=== PATIENT | female | born 1970 | race Caucasian/White ===

== ENCOUNTER → 2020-02-18 08:37 | Outpatient (BNVA) | payer OTHER, SELFPAY | PROVIDERS: PCP Internal Medicine; Visit Provider Physician Assistant | DX: Z76.89 Persons encountering health services in other specified circumstances (principal) ==

== ENCOUNTER 2020-02-24 10:39 | Outpatient (REF) | payer OTHER, SELFPAY ==
--- NOTE | 2020-02-24 12:00 | ECG_ITS ---
Test Reason : PRE DIABETES Blood Pressure : / mmHG Vent. Rate : 067 BPM Atrial Rate : 067 BPM P-R Int : 154 ms QRS Dur : 068 ms QT Int : 430 ms P-R-T Axes : 069 041 045 degrees QTc Int : 454 ms Sinus rhythm with marked sinus arrhythmia and Premature atrial complexes Borderline ECG Premature atrial complexes are new Referred By: Joshua Douglas Electronically Signed By:XAVIER FINNEY MD
[2020-02-24 12:59] LABS: MANUAL DIFF FLAG NO
[2020-02-24 13:11] LABS: Basophils Absolute Auto 0.1 X10*3/uL (0.0-0.2); Basophils Percent Auto 0.4 % (0-2); Eosinophils Absolute Auto 0.1 X10*3/uL (0.0-0.4); Hematocrit 43.9 % (37-47); Hemoglobin 14.1 g/dl (12.0-16.0); Imm Gran Abs Auto 0.04 X10*3/uL (0.00-0.03); Imm Gran Pct Auto 0.4 % (0.0-0.4); Lymphocytes Absolute Auto 3.2 X10*3/uL (1.2-4.9); Lymphocytes Percent Auto 28.8 % (20-40); Mean Corpuscular HGB Conc 32.1 g/dl (31.0-35.0); Mean Corpuscular Hemoglobin 29.5 pg (27.0-33.0); Mean Corpuscular Volume 91.8 fL (80-98); Mean Platelet Volume 12.1 fL (9.4-12.3); Monocytes Absolute Auto 0.8 X10*3/uL (0.1-1.2); Monocytes Percent Auto 7.4 % (2-11); Neutrophils Absolute Auto 6.9 X10*3/uL (2.0-8.3); Platelet Count 270 X10*3/uL (160-400); Red Blood Count 4.78 X10*6/uL (4.20-5.50); Red Cell Distribution Width 12.4 % (11.0-16.0); White Blood Count 11.1 X10*3/uL (4.8-10.8)
[2020-02-24 13:42] LABS: Alanine Aminotransferase 24 U/L (0-31); Albumin Level 4.9 g/dL (3.5-5.0); Alkaline Phosphatase 78 U/L (39-117); Anion Gap 16 (12-20); Aspartate Amino Transferase 25 U/L (5-31); Bilirubin Total 0.7 mg/dL (0.0-1.0); Blood Urea Nitrogen 13 mg/dL (9-16); C Reactive Protein 0.69 mg/dL (< or = 0.50); Calcium 9.3 mg/dL (8.4-10.2); Carbon Dioxide 26 mmol/L (22-29); Chloride 100 mmol/L (96-108); Cholesterol 196 mg/dL; Estimated Glomerular Filt Rate > 60; Glucose Random 83 mg/dL (60-115); HDL Cholesterol 61 mg/dL; LDL Cholesterol Calculated 121 mg/dl; Potassium 3.9 mmol/l (3.3-5.1); Sodium 138 mmol/L (135-145); Triglycerides 73 mg/dL
[2020-02-24 14:06] LABS: Ferritin 60 ng/mL (10-250); TSH reflex Free T4 1.08 mIU/mL (0.32-4.0)
[2020-02-24 14:11] LABS: Estimated Average Glucose 123 mg/dL; Hemoglobin A1C 151.7594 umol/L; Hemoglobin A1c % 5.9 %
[2020-02-24 14:30] LABS: Folate 18.4 ng/mL (> or = 4.0); Vitamin B12 271 pg/mL (200-900)
[2020-02-25 15:32] LABS: H Pylori Breath Test NOT DETECTED (NOT DETECTED)
[2020-02-25 20:37] LABS: Calcium (PTHI) 9.8 mg/dL (8.6-10.4); PTHI 98 pg/mL (14-64)
[2020-02-27 06:01] LABS: Zinc 83 mcg/dL (60-130)
[2020-02-28 11:32] LABS: Vitamin B1 9 nmol/L (8-30)
[2020-03-01 19:02] LABS: Vitamin A 41 mcg/dL (38-98)
== END 2020-02-24 10:40 | disposition home or self-care (01) ==
LOC: HO.LAB 10:39
PROVIDERS: PCP Internal Medicine; Visit Provider Surgery
DX: Z01.818 Encounter for other preprocedural examination (principal); E66.01 Morbid (severe) obesity due to excess calories; R73.03 Prediabetes; Z11.0 Encounter for screening for intestinal infectious diseases
CPT/HCPCS: 36415; 80053; 80061; 82306; 82607; 82728; 82746; 83013; 83036; 83525; 83970; 84425; 84443; 84590; 84630; 85025; 86140; 93005; 99211

== ENCOUNTER 2020-03-03 12:03 | Outpatient (REF) | payer OTHER, SELFPAY ==
--- NOTE | 2020-03-03 12:05 | CT_ITS ---
EXAMINATION: CT ABDOMEN AND PELVIS WITH CONTRAST CLINICAL INFORMATION: Prediabetes COMPARISON: Previous CT of the abdomen and pelvis March 2014 TECHNIQUE: Multidetector volumetric images were obtained from the superior aspect of the liver through the pubic symphysis following administration 85 mL of Omnipaque 350 intravenous contrast. Sagittal and coronal reformatted images were obtained on the technologist's workstation. Oral contrast: Yes This CT examination was performed using dose optimization techniques as appropriate, variously including the following: *Automated exposure control *Adjustment of mA and/or kV according to patient size (this includes techniques or standardized protocols for targeted exams where dose is matched to indication/reason for exam; i.e. extremities or head) *Use of iterative reconstruction technique DLP: 538 mGy-cm FINDINGS: LUNG BASES: The visualized lung bases are unremarkable. LIVER, GALLBLADDER, AND BILIARY TREE: The liver is normal in size, shape, and attenuation. No focal hepatic lesion or biliary ductal dilatation is present. The gallbladder is unremarkable with no evidence of radiopaque gallstones, gallbladder wall thickening, or obvious pericholecystic inflammatory changes. PANCREAS: Unremarkable. SPLEEN: Unremarkable. ADRENAL GLANDS: Unremarkable. KIDNEYS AND URETERS: There is a 6 mm low-attenuation lesion exophytic to the anterior upper pole of the left kidney. Difficult to characterize due to small size. Hounsfield units following IV contrast measure 80 not compatible with a simple cyst. Is uncertain whether this represents a complex cyst or solid mass. This is new from 2014 exam. Kidneys are otherwise unremarkable. BLADDER: Unremarkable. GASTROINTESTINAL TRACT: There is stool throughout the colon questionable for constipation. Small and large bowel is otherwise unremarkable. The appendix is not identified. There is a question of small esophageal hernia wall thickening of the distal thoracic thickness. ABDOMINAL WALL: No significant hernia. LYMPH NODES: Normal. VASCULAR: Unremarkable. PELVIC VISCERA: There is low-attenuation seen centrally in the lower uterine segment/cervix questionable for endometrial fluid or thickening of the represent a nabothian cyst. This measures 2 cm in AP dimension and is new from previous exam from 2013. There are left adnexal or ovarian cysts measuring 2 cm and 1.6 x 1.8 cm. The left ovarian vein is prominent questionable for pelvic congestion. OSSEOUS STRUCTURES: Unremarkable. CT/CT abdomen pelvis w con IMPRESSION: Stool throughout the colon questionable for constipation.. Wall thickening of the distal esophagus and small esophageal hernia. 6 mm left renal lesion not compatible with a simple cyst. It is uncertain whether this represents a complex cyst or renal mass. Follow-up dedicated renal CT or MRI with and without contrast recommended. Low-attenuation seen centrally in the lower uterine segment or cervix questionable for endometrial fluid or thickening versus nabothian cyst. 2 left adnexal cysts, largest measuring 2 cm. Follow-up pelvic ultrasound recommended.
[2020-03-03] MEDS: iohexoL 350 MG/ML 100 ML INFUS..BTL IV (15:44)
[2020-03-03] MEDS: Barium Sulfate Oral (Mocha) 450 ML ORAL.SUSP 900 ML PO (15:45)
== END 2020-03-03 12:04 | disposition home or self-care (01) ==
LOC: HO.CT 12:03
PROVIDERS: PCP Internal Medicine; Visit Provider Surgery
DX: R10.11 Right upper quadrant pain (principal); K44.9 Diaphragmatic hernia without obstruction or gangrene; K21.9 Gastro-esophageal reflux disease without esophagitis; E66.01 Morbid (severe) obesity due to excess calories; R73.03 Prediabetes; Z98.84 Bariatric surgery status; Z98.890 Other specified postprocedural states
CPT/HCPCS: 74177; Q9967

== ENCOUNTER 2020-03-15 09:32 | Outpatient (REF) | payer OTHER, SELFPAY ==
--- NOTE | 2020-03-15 09:35 | XR_ITS ---
EXAMINATION: CHEST. ULTRASOUND ABDOMEN. CLINICAL INFORMATION: Prediabetes. COMPARISON: CT abdomen and pelvis 03/19/2014 TECHNIQUE: Chest 2 views. Routine ultrasound abdomen was performed with liver Elastography. FINDINGS: CHEST: The lungs are well expanded and clear of acute process. The heart size and pulmonary vascularity is normal. No gross bony abnormality seen. ABDOMEN ULTRASOUND: Pancreas: The pancreas is homogeneous echotexture, normal size and shape. Abdominal aorta and IVC. The abdominal aorta is normal caliber. IVC is normal caliber. Liver: The liver is homogeneous in echotexture without any focal lesion. The right lobe measures 15.5 cm in length and left lobe measures 8.7 cm in length. No focal mass or intrahepatic ductal dilatation seen. Normal hepatopedal flow seen in portal vein. On Elastography the median value is 1.14 cm. I cure/median is 0.11 within normal limits. Gallbladder: The gallbladder is distended without any echogenic stones or wall thickening. Gallbladder wall measures 0.27 cm in thickness. Common bile duct: The CBD measures 0.23 cm. Kidneys: The right kidney measures 10.6 cm in length. The left kidney measures 10.8 cm in length. There is normal cortical thickness. No echogenic stones, cyst or hydronephrosis. Previously seen cyst left kidney not seen at this time. Spleen: The spleen measures 9.5 cm in length. There is homogeneous in echotexture. XR/XR chest 2V IMPRESSION: No acute cardiopulmonary process seen. Unremarkable complete abdomen ultrasound. Normal liver exam on Elastography.
--- NOTE | 2020-03-15 09:35 | FL_ITS ---
EXAMINATION: XR GI SERIES CLINICAL INFORMATION: Pre-diabetes. COMPARISON: None TECHNIQUE: Upper GI was performed using thin and thick barium and effervescent granules. FINDINGS: There are postsurgical changes from Peter fundoplication. The patient could not drink quickly and it is difficult to evaluate for esophageal motility. There is a small sliding-type hiatal hernia. There is mild gastroesophageal reflux. The stomach and duodenum are otherwise normal appearing. No fold thickening, mass, ulcer, or stricture is seen. FLUOROSCOPY TIME: 1.3 minutes DOSE AREA PRODUCT: 18.5 Gy cm2. 35 saved fluoroscopic images. FL/FL upper GI series IMPRESSION: Postoperative changes following Peter fundoplication. Small sliding-type hiatal hernia and gastroesophageal reflux.
--- NOTE | 2020-03-15 09:38 | US_ITS ---
EXAMINATION: CHEST. ULTRASOUND ABDOMEN. CLINICAL INFORMATION: Prediabetes. COMPARISON: CT abdomen and pelvis 03/19/2014 TECHNIQUE: Chest 2 views. Routine ultrasound abdomen was performed with liver Elastography. FINDINGS: CHEST: The lungs are well expanded and clear of acute process. The heart size and pulmonary vascularity is normal. No gross bony abnormality seen. ABDOMEN ULTRASOUND: Pancreas: The pancreas is homogeneous echotexture, normal size and shape. Abdominal aorta and IVC. The abdominal aorta is normal caliber. IVC is normal caliber. Liver: The liver is homogeneous in echotexture without any focal lesion. The right lobe measures 15.5 cm in length and left lobe measures 8.7 cm in length. No focal mass or intrahepatic ductal dilatation seen. Normal hepatopedal flow seen in portal vein. On Elastography the median value is 1.14 cm. I cure/median is 0.11 within normal limits. Gallbladder: The gallbladder is distended without any echogenic stones or wall thickening. Gallbladder wall measures 0.27 cm in thickness. Common bile duct: The CBD measures 0.23 cm. Kidneys: The right kidney measures 10.6 cm in length. The left kidney measures 10.8 cm in length. There is normal cortical thickness. No echogenic stones, cyst or hydronephrosis. Previously seen cyst left kidney not seen at this time. Spleen: The spleen measures 9.5 cm in length. There is homogeneous in echotexture. US/US abdomen comp w elastography IMPRESSION: No acute cardiopulmonary process seen. Unremarkable complete abdomen ultrasound. Normal liver exam on Elastography.
[2020-03-17 15:47] LABS: Calcium, Ionized 4.7 mg/dL (4.8-5.6)
== END 2020-03-15 09:33 | disposition home or self-care (01) ==
LOC: HO.US 09:32
PROVIDERS: PCP Surgery; Visit Provider Surgery
DX: Z01.818 Encounter for other preprocedural examination (principal); K21.9 Gastro-esophageal reflux disease without esophagitis; E66.01 Morbid (severe) obesity due to excess calories; N25.81 Secondary hyperparathyroidism of renal origin; R73.03 Prediabetes
CPT/HCPCS: 71046; 74240; 76705; 76981; 82330

== ENCOUNTER → 2020-03-22 08:33 | Outpatient (BNVA) | payer OTHER, SELFPAY | PROVIDERS: PCP Internal Medicine; Referring Provider Internal Medicine; Visit Provider Dietitian, Registered | DX: Z76.89 Persons encountering health services in other specified circumstances (principal) ==

== ENCOUNTER → 2020-04-05 08:27 | Outpatient (BNVA) | payer OTHER, SELFPAY | PROVIDERS: PCP Internal Medicine; Visit Provider Surgery | DX: Z76.89 Persons encountering health services in other specified circumstances (principal) ==

== ENCOUNTER → 2020-04-08 08:24 | Outpatient (BNVA) | payer OTHER, SELFPAY | PROVIDERS: PCP Internal Medicine; Visit Provider Dietitian, Registered | DX: Z76.89 Persons encountering health services in other specified circumstances (principal) ==

== ENCOUNTER → 2020-04-22 08:17 | Outpatient (BNVA) | payer OTHER, SELFPAY | PROVIDERS: PCP Internal Medicine; Visit Provider Surgery | DX: N25.81 Secondary hyperparathyroidism of renal origin (principal); R73.03 Prediabetes; K21.9 Gastro-esophageal reflux disease without esophagitis; E66.9 Obesity, unspecified; Z68.39 Body mass index [BMI] 39.0-39.9, adult | CPT/HCPCS: 99212 ==

== ENCOUNTER 2020-04-23 12:54 | Outpatient (REF) | payer OTHER, SELFPAY ==
[2020-04-23 14:19] LABS: INTERNATIONAL NORM RATIO 1.1 (0.9-1.1); Prothrombin Time 13.5 SEC (10.8-13.0)
[2020-04-23 14:21] LABS: Partial Thromboplastin Time 35.5 SEC (24.1-38.0)
[2020-04-23 14:26] LABS: Imm Gran Abs Auto 0.02 X10*3/uL (0.00-0.03); Imm Gran Pct Auto 0.3 % (0.0-0.4); SCAN SMEAR FLAG 1
[2020-04-23 14:28] LABS: Basophils Percent Auto 0.5 % (0-2); Eosinophils Absolute Auto 0.1 X10*3/uL (0.0-0.4); Eosinophils Percent Auto 1.4 % (0-4); Hematocrit 43.7 % (37-47); Hemoglobin 14.2 g/dl (12.0-16.0); Lymphocytes Absolute Auto 2.8 X10*3/uL (1.2-4.9); Lymphocytes Percent Auto 35.7 % (20-40); Mean Corpuscular HGB Conc 32.5 g/dl (31.0-35.0); Mean Corpuscular Hemoglobin 29.9 pg (27.0-33.0); Mean Platelet Volume 13.8 fL (9.4-12.3); Monocytes Absolute Auto 0.5 X10*3/uL (0.1-1.2); Monocytes Percent Auto 6.6 % (2-11); Neutrophils Absolute Auto 4.4 X10*3/uL (2.0-8.3); Neutrophils Percent Auto 55.5 % (45-73); Platelet Count 177 X10*3/uL (160-400); Red Blood Count 4.75 X10*6/uL (4.20-5.50); Red Cell Distribution Width 12.7 % (11.0-16.0); White Blood Count 7.9 X10*3/uL (4.8-10.8)
[2020-04-23 14:32] LABS: MANUAL DIFF FLAG NO; PLT ABN DIST 1
[2020-04-23 14:54] LABS: Alanine Aminotransferase 25 U/L (0-31); Albumin Level 4.6 g/dL (3.5-5.0); Alkaline Phosphatase 63 U/L (39-117); Anion Gap 12 (12-20); Aspartate Amino Transferase 16 U/L (5-31); Bilirubin Total 0.4 mg/dL (0.0-1.0); Blood Urea Nitrogen 17 mg/dL (9-16); C Reactive Protein 0.27 mg/dL (< or = 0.50); Calcium 9.4 mg/dL (8.4-10.2); Carbon Dioxide 28 mmol/L (22-29); Chloride 104 mmol/L (96-108); Cholesterol 169 mg/dL; Estimated Glomerular Filt Rate > 60; Glucose Random 104 mg/dL (60-115); HDL Cholesterol 50 mg/dL; LDL Cholesterol Calculated 106 mg/dl; Sodium 140 mmol/L (135-145); Total Protein 7.4 g/dL (6.5-8.0); Triglycerides 65 mg/dL
[2020-04-23 14:56] LABS: Estimated Average Glucose 117 mg/dL; Hemoglobin A1c % 5.7 %
[2020-04-23 15:16] LABS: TSH reflex Free T4 0.86 mIU/mL (0.32-4.0)
[2020-04-24 12:06] LABS: Insulin Level Total 7.7 uIU/mL
[2020-04-26 11:03] LABS: Anti-Thrombin III Activity 116 % normal (80-135)
[2020-04-26 13:46] LABS: PTT (LAC) Screen 30 sec (< OR = 40)
[2020-04-26 22:22] LABS: Protein C Activity 120 % (70-180); Protein S Activity rflx Tot&Fr 95 % (60-140)
[2020-04-28 14:17] LABS: Factor VIII Activity 104 % normal (50-180)
== END 2020-04-23 12:55 | disposition home or self-care (01) ==
LOC: HO.LAB 12:54
PROVIDERS: PCP Internal Medicine; Visit Provider Surgery
DX: E66.9 Obesity, unspecified (principal); D69.9 Hemorrhagic condition, unspecified; R73.03 Prediabetes; K21.9 Gastro-esophageal reflux disease without esophagitis; N25.81 Secondary hyperparathyroidism of renal origin; Z88.2 Allergy status to sulfonamides; Z88.8 Allergy status to other drugs, medicaments and biological substances; Z68.37 Body mass index [BMI] 37.0-37.9, adult; Z90.3 Acquired absence of stomach [part of]; Z79.899 Other long term (current) drug therapy
CPT/HCPCS: 36415; 80053; 80061; 81241; 83036; 83525; 84443; 85025; 85230; 85240; 85300; 85302; 85303; 85305; 85306; 85597; 85610; 85613; 85730; 86140

== ENCOUNTER → 2020-04-28 10:44 | Outpatient (BNVA) | payer OTHER, SELFPAY | PROVIDERS: PCP Internal Medicine; Visit Provider Physician Assistant ==

== ENCOUNTER 2020-05-04 06:02 | Inpatient (IN) | payer OTHER, SELFPAY ==
[2020-04-22 11:16] VITALS: BMI 37.8
--- NOTE | 2020-05-03 09:29 | HO.ANESPROP2 ---
Documented by User: Selam Bess 05/03/20 09:31 HPI - Anesthesia Eval Consult details Narrative: 49yo F for Gastric Sleeve PMFSH Past Medical History Medical History ADHD Arthritis Asthma Bleeding disorder Depression Diaphragmatic hernia Fibromyalgia GERD (gastroesophageal reflux disease) History of traumatic head injury Lab test negative for COVID-19 virus Morbid obesity Prediabetes Sinus arrhythmia seen on electrocardiogram Family History Family History Father No problems noted. Mother Age: 74 Obesity Insulin dependent diabetes mellitus Sister No problems noted. Surgical History Surgical History History of Obesity Status post Peter fundoplication Social History Social History Are you a primary long term acute care registered nurse to a significant other at home: No Do you presently have visiting nurse or other home services: No Alcohol intake: never Smoking Status: Never smoker Use of substances other than those prescribed or required for medical reasons: No Have you been hit, kicked, punched, or otherwise hurt by someone within the past year? If so, by whom?: No Advance Directives Information Provided: No Advance Directives on File: No Recently lost weight without trying: No Meds Allergies Allergy/AdvReac Type Severity Reaction Status Date / Time Sulfa (Sulfonamide Allergy Intermediate RASH Verified 04/22/20 11:25 Antibiotics) [SULFA (SULFONAMIDE ANTIBIOTICS)] sumatriptan [SUMATRIPTAN] Allergy Intermediate HEADACHE/NA Verified 04/22/20 11:25 USEA/CONFUS ION Home Medications Medication Instructions Recorded Confirmed Type albuterol sulfate 90 mcg/actuation 2 puff INHALATION Q6H PRN 02/20/20 04/22/20 History aerosol inhaler alprazolam 0.5 mg tablet 0.5 mg PO QID PRN 02/20/20 04/22/20 History dextroamphetamine 10 mg 10 mg PO DAILY 02/20/20 04/22/20 History capsule,extended release dextroamphetamine-amphetamine 30 30 mg PO DAILY 02/20/20 04/22/20 History mg tablet ondansetron HCl 4 mg tablet 4 mg PO Q8H 02/20/20 04/22/20 History venlafaxine 37.5 mg 37.5 mg PO DAILY 02/20/20 04/22/20 History capsule,extended release 24 hr Exam Exam Date and Time: May 03, [id number] Height,Weight and Vital Signs: Height 4 ft 8 in Weight 76.657 kg Pertinent Lab Results Pertinent Lab Results: Laboratory Tests 04/23/20 13:15 Blood Type A Positive Antibody Screen NEGATIVE Laboratory Tests 04/23/20 04/23/20 13:15 13:15 WBC 7.9 Hgb 14.2 Hct 43.7 Plt Count 177 D Sodium 140 Potassium 4.0 Chloride 104 Carbon Dioxide 28 BUN 17 H Creatinine 0.91 Narrative Narrative: EKG 02/2020 Sinus rhythm with marked sinus arrhythmia and Premature atrial complexes Borderline ECG Premature atrial complexes are new Exercise stress 2019: WNL Assessment and Plan Assessment Anesthesia Assessment: Chart Reviewed Documented by User: Jayro Garcia 05/04/20 13:19 [facility] Past Medical History Medical History ADHD Arthritis Asthma Bleeding disorder Depression Diaphragmatic hernia Fibromyalgia GERD (gastroesophageal reflux disease) History of traumatic head injury Lab test negative for COVID-19 virus Morbid obesity Prediabetes Sinus arrhythmia seen on electrocardiogram Family History Family History Father No problems noted. Mother Age: 74 Obesity Insulin dependent diabetes mellitus Sister No problems noted. Surgical History Surgical History History of Obesity Status post Peter fundoplication Social History Social History Are you a primary long term acute care registered nurse to a significant other at home: No Do you presently have visiting nurse or other home services: No Alcohol intake: never Smoking Status: Never smoker Use of substances other than those prescribed or required for medical reasons: No Have you been hit, kicked, punched, or otherwise hurt by someone within the past year? If so, by whom?: No Advance Directives Information Provided: No Advance Directives on File: No Recently lost weight without trying: No Meds Allergies Allergy/AdvReac Type Severity Reaction Status Date / Time Sulfa (Sulfonamide Allergy Intermediate RASH Verified 04/22/20 11:25 Antibiotics) [SULFA (SULFONAMIDE ANTIBIOTICS)] sumatriptan [SUMATRIPTAN] Allergy Intermediate HEADACHE/NA Verified 04/22/20 11:25 USEA/CONFUS ION Home Medications Medication Instructions Recorded Confirmed Type albuterol sulfate 90 mcg/actuation 2 puff INHALATION Q6H PRN 02/20/20 04/22/20 History aerosol inhaler alprazolam 0.5 mg tablet 0.5 mg PO QID PRN 02/20/20 04/22/20 History dextroamphetamine 10 mg 10 mg PO DAILY 02/20/20 04/22/20 History capsule,extended release dextroamphetamine-amphetamine 30 30 mg PO DAILY 02/20/20 04/22/20 History mg tablet ondansetron HCl 4 mg tablet 4 mg PO Q8H 02/20/20 04/22/20 History venlafaxine 37.5 mg 37.5 mg PO DAILY 02/20/20 04/22/20 History capsule,extended release 24 hr Exam Airway Mallampati Class: II TM Dist: >3cm Neck ROM: Full Loose/Missing/Broken Teeth: No Heart: [id number] Lungs: cta b/l Assessment and Plan Assessment Anesthesia Assessment: Anesthesia Plan Discussed, PAT Visit and Chart Reviewed Final Anesthetic Review NPO: Yes ASA Class: III Final Preanesthetic Review: No Changes in Pt Med Stat, Meds/Allgs Chart Reviewed, Consent Obtained/Reviewed and Anes Risks/Benef Reviewed Patient Risk: Intermediate Procedure Risk: Low Assessment/Block/Sedation in SS: Assess/Block/Sedation-SS Anesthetic Plan Anesthetic Plan: GA and Agree w/ Assess. and Plan Disposition: Standard PACU
--- NOTE | 2020-05-03 14:26 | P.HPSUR_ITS ---
Pre-Procedural Eval Section A The patient is an INPATIENT: Yes The History & Physical has been completed within 30 days and I have reviewed it.: Yes Section B Chief Complaint: obesity Details of Present Illness: obesity Relevant Family History (Specify if Yes): No Relevant Social History: None Present Medications: see Short Stay Collaborative assessment Medical History: No relevant PMH History of Previous Operations: Relevant previous surgery/procedure and date(s) (lap Peter fundoplication) Allergies: Allergies Allergy/AdvReac Type Severity Reaction Status Date / Time Sulfa (Sulfonamide Allergy Intermediate RASH Verified 04/22/20 11:25 Antibiotics) [SULFA (SULFONAMIDE ANTIBIOTICS)] sumatriptan [SUMATRIPTAN] Allergy Intermediate HEADACHE/NA Verified 04/22/20 11:25 USEA/CONFUS ION Review of Systems Sugical H&P ROS: Negative: Constitution, Cardiovascular, Respiratory, Neurological, Psychiatric, Hem-Onc, Allergic/Immunologic, Gastrointestinal, G enitourinary, Musculoskeletal, Integumentary, Endocrine and Eyes/Ears/Nose/Throat Exam Surgical H&P Exam: Normal: HEENT, Normal: Heart, Normal: Lungs, Normal: Extremities, Normal: Abdomen, Normal: Skin and Normal: Neurological Plan Diagnosis/Plan: Unchanged I have reviewed the history and physical and performed a pertinent physical examination on my patient. No changes have occurred unless specified.
[2020-05-04] VITALS (18 sets, daily range): BP systolic 115–156; BP diastolic 63–84; PULSE 59–93; RESP 14–19; TEMP 36.1–36.8; O2SAT 93–99
[2020-05-04 10:45] LABS: COVID-19 Test Negative (Negative)
[2020-05-04] MEDS: ceFAZolin Sodium/Dextrose,Iso 2 GM/50 ML PIGGYBACK IV ×2 (10:50→19:15)
[2020-05-04] MEDS: Lactated Ringers 1,000 ML 100 ML IVCONT (10:51)
--- NOTE | 2020-05-04 12:03 | PC.NURSE ---
Patient called this RN to bedside and asked Is it normal to be itchy? RN assessed patient for reaction. Anterior & posterior patches of hives on chest & back, down arms bilaterally. Patient stated all of the sudden I got so itchy from my head to my arms . Transfusion stopped immediately and disconnected from patient @ 1151. Blood bank contacted and control room supervisor Roseanne advised considered mild reaction and to contact provider directly for orders like Benadryl. Anesthesia Dr Garcia & Dr Bridges at bedside to assess patient
--- NOTE | 2020-05-04 12:10 | PC.NURSE ---
Fresh Frozen Plasma bag, IV set, and NS taken down to blood bank per instructions given by Blood Bank. Handed to Melissa at window by this RN
--- NOTE | 2020-05-04 16:47 | P.DS_ITS ---
DS: Providers Provider Date of Service: 05/06/20 Date of admission: 05/04/20 06:02 Primary care physician: Vaibhav Saravia MD DS: Medications Discharge Medications Home Medications: Home Medications Medication Instructions Recorded Confirmed albuterol sulfate 90 mcg/actuation 2 puff INHALATION Q6H PRN 02/20/20 04/22/20 aerosol inhaler alprazolam 0.5 mg tablet 0.5 mg PO QID PRN 02/20/20 04/22/20 dextroamphetamine 10 mg 10 mg PO DAILY 02/20/20 04/22/20 capsule,extended release dextroamphetamine-amphetamine 30 30 mg PO DAILY 02/20/20 04/22/20 mg tablet ondansetron HCl 4 mg tablet 4 mg PO Q8H 02/20/20 04/22/20 venlafaxine 37.5 mg 37.5 mg PO DAILY 02/20/20 04/22/20 capsule,extended release 24 hr Previous Rx's Medication Instructions Recorded ondansetron HCl 4 mg tablet 4 mg PO Q6H PRN #30 tab 04/22/20 pantoprazole 40 mg tablet,delayed 40 mg PO DAILY #30 tab 04/22/20 release polyethylene glycol 3350 17 gram 17 g PO DAILY #14 ea 04/22/20 oral powder packet sucralfate 100 mg/mL oral 10 ml PO BID #420 ml 04/22/20 suspension DS: Summary Time Spent with Patient Time attestation: ADMITTING DIAGNOSIS: morbid obesity, Factor VII deficiency, ADHD, asthma, fibromyalgia, GERD DISCHARGE DIAGNOSIS: same, s/p laparoscopic sleeve gastrectomy and repair of hiatal hernia PAST SURGICAL HISTORY: Peter fundoplication, section PROCEDURE: upper endoscopy, laparoscopic sleeve gastrectomy with gastropexy, Peter take down, hiatal hernia repair DISCHARGE SUMMARY: History of Present Illness: The patient is a 49 year-old woman with a BMI of 42 kg/m2 and associated co- morbidities as described above. The patient had extensive work-up,lost 18.4 lbs preoperatively and was electively scheduled for laparoscopic, possible open slee ve gastrectomy and gastropexy and Peter take down. Risks and complications of the surgery were discussed with the patient in advance, particularly the possibility of , pulmonary embolism, anastomotic leak, bleeding, bowel injury, GERD, cardiac, renal or pulmonary complications. The patient understood all the risks and was in agreement with the surgical plan. Hospital Course: The patient underwent an uneventful laparoscopic sleeve gastrectomy with gastropexywith takedown of Peter fundoplication and hiatal hernia repair on the day of admission. Postoperatively, the patient was transferred to the surgical floor. The patient was on IV Acetaminophen and IV dilaudid for pain control. Patient was started on bariatric phase 1 diet POD #0. On postoperative day one, the patient was feeling well without nausea, vomiting, fevers, or tachycardia. The patient had some mild incisional pain. The abdomen was soft. On the morning of postoperative day one, the patient was continued on 1 ounce of water or ice every half hour. During the first day, the patient did fairly well, having some incisional pain, but able to ambulate adequately and to tolerate liquids well. Since the patient is doing well, we decided that the patient was ready to be discharged. The patient was given instructions to follow-up with me next week and to call my office for any fever over 101, persistent abdominal pain, nausea, vomiting, GERD, symptoms of DVT such as calf tenderness, or leg swelling, or pulmonary embolism such as chest pain or shortness of breath. The patient was also instructed to drink 40-60 ounces of liquids per day using the 1-ounce cups. The patient was given prescription for Tylenol for pain, Zofran prn for nausea, and pantoprazole and carafate. The patient was encouraged to ambulate and use the incentive spirometer. The patient was allowed to shower, but no baths, and encouraged to stay active at home. All of these instructions were given to the patient personally. All questions were answered and the patient understood all instructions, the instructions were also given to the patient in print. Total time spent providing and/or coordinating discharge services: 30 minutes Discharge coordination time: Greater than 30 minutes Physical Exam Vital Signs: Vital Signs: Last Vital Signs Temp 98.1 F 05/04/20 11:51 Pulse 72 05/04/20 11:51 Resp 18 05/04/20 11:51 BP 153/81 H 05/04/20 11:51 Pulse Ox 96 05/04/20 10:52 Body Mass Index 37.8 DS: Data Data Completed and Pending Pending studies at discharge: Pending at discharge 05/04/20 14:59 Surgical [PTH] Routine Labs on day of discharge: Laboratory Tests 04/23/20 05/04/20 05/04/20 13:15 10:18 11:59 COVID-19 (KRISTY) Negative COVID-19 Clin Com See Note Blood Type A Positive Antibody Screen NEGATIVE Clerical Work Check No Error Found Hemolysis Bld Bag Check Not Reportable Icterus Blood Bag Check Not Reportable Post-Trans Blood Type Not Reportable Post-Trans BUD IgG TNP Post-Trans BUD Poly TNP Post-Trans Add Testing Not Reportable Discharge Plan Discharge Anticipated Discharge Date/Time: 05/05/20 11:45 Patient Disposition: Home, Self-Care Referrals: Vaibhav Saravia MD [Primary Care Provider] - Discharge Medications: Continued dextroamphetamine-amphetamine [Adderall XR] 30 mg Capsule,Extended Release 24hr 30 mg PO DAILY RF: 0 dextroamphetamine 10 mg tablet 10 mg PO DAILY RF: 0 alprazolam [Xanax] 0.5 mg tablet 0.5 mg PO QID PRN (Reason: Anxiety) RF: 0 venlafaxine 37.5 mg capsule,extended release 24hr 37.5 mg PO DAILY RF: 0 albuterol sulfate [ProAir HFA] 90 mcg/actuation HFA aerosol inhaler 2 puff inhalation Q6H PRN (Reason: Shortness Of Breath) RF: 0 pantoprazole 40 mg tablet,delayed release (DR/EC) 40 mg PO DAILY Qty: 30 RF: 2 sucralfate 100 mg/mL suspension 10 ml PO BID Qty: 420 RF: 2 ondansetron HCl [Zofran] 4 mg tablet 4 mg PO Q6H PRN (Reason: nausea and vomiting) Qty: 30 RF: 0 Discontinued calcium carbonate-vitamin D3 600 mg(1,500mg) -200 unit tablet 1 cap PO DAILY RF: 0 polyethylene glycol 3350 [Miralax] 17 gram powder in packet 17 g PO DAILY Qty: 14 RF: 0 Discharge Orders: Discharge Order (Routine); Ordered 05/05/20 Ordered By: Joshua Douglas Diet: other Activity on Discharge: No heavy lifting Stand Alone Forms: Patient Portal Discharge page Activity Restrictions/Additional Instructions: No tub baths, sex or returning to work until discussed at first post op appointment. No exercise, alcohol, tobacco or illegal drug use. Continue to use incentive spirometer hourly while awake. Walk in home for 5- 10 minutes every 2 hours during the first week. Continue phase 1 diet today and start phase 2 diet tomorrow morning. Follow all instructions in the bariatric handbook and call with any questions. Visit Report Forms: Patient Portal Discharge page Care Plan Goals: weight loss Health Concerns: morbid obesity Plan of Treatment: see discharge instructions Discharge Date/Time: 05/05/20 11:14
[2020-05-04 17:27] LABS: MANUAL DIFF FLAG NO
[2020-05-04 17:31] LABS: Basophils Percent Auto 0.2 % (0-2); Eosinophils Percent Auto 0.1 % (0-4); Hematocrit 44.1 % (37-47); Hemoglobin 14.1 g/dl (12.0-16.0); Imm Gran Abs Auto 0.11 X10*3/uL (0.00-0.03); Imm Gran Pct Auto 0.6 % (0.0-0.4); Lymphocytes Absolute Auto 1.6 X10*3/uL (1.2-4.9); Lymphocytes Percent Auto 8.5 % (20-40); Mean Corpuscular Volume 93.8 fL (80-98); Mean Platelet Volume 12.6 fL (9.4-12.3); Monocytes Absolute Auto 0.6 X10*3/uL (0.1-1.2); Neutrophils Absolute Auto 16.2 X10*3/uL (2.0-8.3); Neutrophils Percent Auto 87.6 % (45-73); Platelet Count 181 X10*3/uL (160-400); Red Cell Distribution Width 12.7 % (11.0-16.0); White Blood Count 18.5 X10*3/uL (4.8-10.8)
[2020-05-04 17:54] LABS: Anion Gap 16 (12-20); Blood Urea Nitrogen 11 mg/dL (9-16); Calcium 8.1 mg/dL (8.4-10.2); Carbon Dioxide 22 mmol/L (22-29); Chloride 105 mmol/L (96-108); Creatinine Clr Calc Pharmacy 65.5; Estimated Glomerular Filt Rate > 60; Glucose Random 143 mg/dL (60-115); Potassium 4.1 mmol/l (3.3-5.1); Sodium 139 mmol/L (135-145)
--- NOTE | 2020-05-04 19:13 | PC.NURSE ---
PT ARRIVED TO UNIT VIA BED. AMBULATED TO BR. VOIDED 200ML PALE YELLOW
[2020-05-04] MEDS: Lactated Ringers 1,000 ML 125 ML IVCONT (19:17)
--- NOTE | 2020-05-04 20:00 | PM.OP ---
Brief Operative Note Date of Service: 05/04/20 Pre-op diagnosis: Severe obesity with comorbidities. See below. Post-op diagnosis: same (abdominal adhesions) Procedure: INITIAL PATIENT BMI ON PRESENTATION AT OUR OFFICE: 42.2 kg/m2 LAST BMI BEFORE SURGERY: 37.6 kg/m2 COMORBIDITIES: Recurrent diaphragmatic hernia, GERD, asthma, factor V deficiency, depression, anxiety, fibromyalgia, DJD, ADHD, prediabetes The patient participated in an intensive weekly lifestyle intervention and exercise program during which the patient has lost between the initial office visit and the last preoperative visit 21.2lbs, or 11.25% of initial actual body weight. The patient met the BMI-criteria for bariatric surgery based on the BMI on initial presentation. The patient should not be penalized for achieving such weight loss because it is not sustainable long-term without surgical intervention and it was achieved in preparation for bariatric surgery under my direction and based on my published research ([email or web address] and [email or web address]) that a 10% preoperative weight loss improves long-term weight loss after surgery and reduces perioperative complications. Insurance carriers such as [facility] have endorsed my recommendations and have included in their policies criteria to include a 10% preoperative weight loss requirement. PROCEDURE: Esophago-gastroscopy, laparoscopic repair of recurrent incarcerated diaphragmatic hernia, extensive laparoscopic lysis of adhesions and Peter fundoplication takedown, laparoscopic sleeve gastrectomy and laparoscopic gastropexy INDICATIONS: This is a 49 year-old female who was electively scheduled for laparoscopic, possibly open sleeve gastrectomy. The patient had a previous Peter fundoplication with diaphragmatic hernia repair with pledgets. Preoperative UGI suggests that it has failed as the patient had GERD and a recurrent diaphragmatic hernia. The risks and complications of the procedure were discussed with the patient in advance, particularly the possibility of ; pulmonary embolism; staple line leak; bleeding; GERD; cardiac, pulmonary, or renal complications; as well as long-term problems such as insufficient weight loss, vitamin deficiency, strictures, or ulcers. The patient understood all the risks, and was in agreement to proceed with surgery. DESCRIPTION OF PROCEDURE: After informed consent was obtained from the patient, the patient was given preoperative antibiotics, and was transferred to the operating room. After successful induction of general anesthesia, a Shirley catheter and pneumatic compressive devices were placed on both lower extremities. An upper endoscopy was performed next. The oropharynx and esophagus appeared to be within normal limits. There was a diaphragmatic hernia present of moderate size consistent with the findings of the preoperative upper GI. The stomach was entered. Then after all fluid and air were suctioned and the stomach was fully decompressed, the scope was withdrawn and secured in the mid esophagus. The patient was then prepped and draped in the usual sterile manner, and abdominal access was established at the right upper quadrant with the Anthony technique. A 12 mm blunt port was inserted, and the abdomen was insufflated with CO2 to a pressure of 15 mmHg. Under direct visualization, additional ports were placed, specifically two 5 mm Versi-step ports to the left upper quadrant, and a 5 mm Versi-Step port to the right upper quadrant. 1% lidocaine plan was used to infiltrate all port sites as well as all fascia defects. There were adhesions in the abdomen from previous Peter fundoplication and umbilical hernia repair involving the omentum and the anterior abdominal wall. Those were lysed completely with the ultrasonic device (Thunderbeat, Olympus). Following that, the patient was placed in a steep reverse Trendelenburg position. An additional 5 mm port was placed to the right flank for the Mediflex retractor that was used to retract the left lobe of the liver. There were extensive adhesions between the caudate lobe as well as the undersurface of the left lobe of the liver with the stomach. Those were lysed and the liver retractor was re-positioned. The right surekha was visualized and initially I worked outside the surekha the liver from the surekha and the stomach towards the hiatus. Once this was done, I now had a good exposure to the hiatus. Then I dissected medically to the right surekha. Two posterior sutures were noted with pledgets. The very posterior one was preserved. The second most superior suture and pledget was divided. I was able to get into a good plane between the right surekha and the outside of the gastric wrap (fundoplication). I mobilized with the Thunderbeat the right surekha from the wrap all the way superior to the anterior surface of the esophagus. I also dissected posterior to the esophagus around the wrap and the confluence to the left surekha was identified and well dissected. Then I identified the gastro-gastric sutures that kept the wrap together. Those were divided freeing the tip of the gastric fundus that was wrapped arround the stomach to create the fundoplication. Then I worked in a plane between the esophagus and the inside surface of the wrapped stomach. I was able slowly to mobilize the wrapped stomach from the esophagus almost circumferentially. No injuries were occured during this extensive dissection that took over 90 minutes to complete. The gastro-esophageal fat pad was opened with the ultrasonic device (Thunderbeat, Olympus) and the anterior esophagus and hiatus were exposed. The angle of His was opened with the ultrasonic device the fundus of the stomach from any diaphragmatic and splenic attachments. I then opened the gastrocolic ligament between the transverse colon and the greater curvature of the stomach with the ultrasonic device to enter the lesser sac and facilitate the ligation of the short gastric vessels. I started at a mid-point along the greater curvature and using the Thunderbeat, all short gastric vessels were divided all the way to the angle of His until the left surekha was completely dissected at its entirety. I then divided the gastro-colic ligament distally to a distance of about 3-4 cm proximal to the esophagus. Then I dissected the left surekha from the esophagus and the remaining attachments to the wrapped stomach. Eventually the wrapped stomach was completely undone and was placed back at its original position. There were also extensive congenital adhesions between the pancreas and posterior gastric wall. Those were lysed completely with the ultrasonic device. There was an obvious significant-sized hiatal hernia remaining after the dissection of the wrap was completed. I continued dissecting along the hiatus toward the left surekha and the angle of His. I then continued by dissecting even further into the posterior retro-esophageal space all the way to the angle of His. I continued to mobilize the esophagus into the mediastinum circumferentially. Both vagal nerves were seen and preserved. At that point, I was able to have at least 3 to 5 cm of esophagus into the abdomen. After I completely mobilized the esophagus from both the left and right surekha and I had a good mobilization of the esophagus circumferentially, I closed the hernia defect with two interrupted #0 Surgidac sutures using the Endo Stitch device, one of which was placed posterior to and one anterior to the esophagus. As mentioned previously an additional, very posterior suture with pledget placed at the original operation was kept. The stomach was then divided transversely with one Endo ABBY-45 purple, one ABBY-45 orange and four ABBY-60 articulating orange loads using the AEON stapler and loads. Every effort was made that the gastric sleeve had a tubular shape and an even caliber throughout. Once the sleeve resection was completed, the staple line of the gastric sleeve was reinforced with Hemoclips. The resected stomach was retrieved without difficulty from the Anthony port. A gastropexy was then performed in order to prevent postoperative GERD and partial gastric volvulus. Several interrupted 2.0 Surgidac sutures were placed between the sleeve's staple line and the previously divided greater omentum and gastro-colic ligament using the Endo-Stitch device. An upper endoscopy was performed. There was no narrowing at the GE junction. The scope was easily advanced all the way to the pylorus which was clearly visualized. There was no narrowing anywhere and the sleeve's caliber was even throughout. The sleeve's staple line was inspected and there was no evidence of ischemia, bleeding or dehiscence. At that point the gastroscope was withdrawn from the patient?s mouth while we were decompressing the bowel and the stomach from any remaining air. I looked into the lesser sac to see how the sleeve was situating and it was situating well. There was no bleeding from the staple line, spleen, or short gastric vessels. The Mediflex retractor was removed, and the undersurface of the liver was inspected and there was no bleeding. The patient was placed in supine position. I closed the fascial defect of the 12 mm port site with a figure of eight #1 Polysorb suture. Then 100 cc 0.25 % Marcaine plain with 10 mg of Dexamethasone were used to infiltrate the fascial closure as well as all skin incisions. At this point, the abdomen was deflated, all ports were removed under direct vision, and no bleeding was noted from any of the port sites. The skin incisions were irrigated with saline and were closed with 4-0 absorbable monofilament sutures. Steri-Strips and OpSites were used to cover all incisions. The patient was extubated and was transferred in stable condition to the recovery room for further care. I was present and performed all perez parts of the procedure. Ms. Singletary was the marketing administrative assistant. There were no residents to assist with this case. Ammon Douglas MD, PhD, FACS Surgeon: Joshua Douglas MD Anesthesia: GETA, local and other (TAP block) [employer] Specialist: Terri Singletary Estimated blood loss (mL): 10 IV fluids (mL): 3,000 Urine output (mL): 150 Pathology: other (Stomach) Condition: stable Disposition: PACU
[2020-05-04] MEDS: HYDROmorphone HCl 0.5 MG/0.5 ML SYRINGE 0.25 MG IVPUSH (20:05)
--- NOTE | 2020-05-04 20:20 | PM.PNGS ---
Subjective Subjective Date of Service: 05/05/20 Interval history: Patient has mild incisional pain. Was able to ambulate and use the incentive spirometer. Physical Exam Vital Signs: Vital Signs: Last Vital Signs Temp 78 F L 05/04/20 19:13 Pulse 80 05/04/20 19:13 Resp 19 05/04/20 19:13 BP 139/72 05/04/20 19:13 Pulse Ox 98 05/04/20 19:13 Body Mass Index 37.8 GI: Inspection: Yes normal to inspection, Yes incision (clean, dry, intact) and Yes obesity Extrem: Right lower extremity: normal to inspection (no calf tenderness) Left lower extremity: normal to inspection (no calf tenderness) Progress Note: A&P Assessment and plan (1) Obesity: Status: Acute (2) BMI 37.0-37.9, adult: Status: Acute (3) Diaphragmatic hernia: Status: Acute (4) Prediabetes: Status: Acute (5) Fibromyalgia: Status: Acute (6) GERD (gastroesophageal reflux disease): Status: Acute (7) Bleeding disorder: Problem details: Factor 7 deficiency-pt states due to medication combination years ago-denies current bleeding issues Status: Acute (8) Secondary hyperparathyroidism: Status: Acute (9) Asthma: Problem details: exercise induced-has prn inhaler Status: Acute (10) ADHD: Status: Acute (11) Depression: Status: Acute (12) Intra-abdominal adhesions: Status: Acute (13) Congenital intra-abdominal adhesions: Status: Acute (14) S/P laparoscopic sleeve gastrectomy: Status: Acute Assessment and Plan: 49 year old female was admitted 05/04/2020 with morbid obesity and comorbidities. Problem 1: s/p laparoscopic sleeve gastrectomy, gastropexy, repair of diaphragmatic hernia, Peter takedown, and lysis of adhesions Status: Doing well Plan: Check am labs, If OK, will continue phase 1 bariatric diet and discharge later today. (15) S/P repair of paraesophageal hernia: Status: Acute Fall Risk Details Current Medications: Current Medications Generic Name Dose Route Start Last Admin Trade Name Freq PRN Reason Stop Dose Admin Albuterol Sulfate 2 puff 05/04/20 17:56 Albuterol Sulfate 90 Mcg 8 Gm Inhaler INHALE Q6H PRN Wheezing Alprazolam 0.5 mg 05/04/20 17:56 Alprazolam 0.5 Mg Tablet PO QID PRN Anxiety Famotidine 20 mg 05/04/20 21:00 Famotidine/Pf 20 Mg/2 Ml Vial IVPUSH BID VIVIENNE Hydromorphone HCl 0.25 mg 05/04/20 17:56 05/04/20 20:05 Hydromorphone Hcl 0.5 Mg/0.5 Ml Syringe IVPUSH 0.25 mg Q4H PRN Administration Pain, Moderate (Pain Scale 4-6 Acetaminophen 1,000 mg in 100 mls @ 16.7 mls/hr 05/04/20 17:56 05/04/20 18:14 Ofirmev IV Not Given .Q6H VIVIENNE Lactated Ringer's 1,000 mls @ 125 mls/hr 05/04/20 17:56 05/04/20 19:17 Lr IVCONT 125 mls/hr .Q8H VIVIENNE Administration Metoclopramide HCl 10 mg 05/04/20 17:56 Metoclopramide Hcl 10 Mg/2 Ml Vial IVPUSH Q6H PRN Nausea Ondansetron HCl 4 mg 05/04/20 18:00 05/04/20 19:16 Ondansetron Hcl 4 Mg/2 Ml Vial IVPUSH Not Given Q8H VIVIENNE Sodium Chloride 3 ml 05/05/20 00:00 0.9 % Sodium Chloride Flush 3 Ml Syringe IVFLUSH QSHIFT VIVIENNE Time Spent With Patient Time: Total time spent is greater than 50% in coordination of care (as documented) at patient's floor/unit and/or counseling patient: Time with patient: less than 15 minutes
[2020-05-04] MEDS: Famotidine/PF 20 MG/2 ML VIAL IVPUSH (20:58)
[2020-05-04] MEDS: 0.9 % Sodium Chloride Flush 3 ML SYRINGE IVFLUSH (23:38)
[2020-05-04] MEDS: ondansetron HCL 4 MG/2 ML VIAL IVPUSH (23:38)
[2020-05-05] MEDS: Lactated Ringers 1,000 ML 125 ML IVCONT (03:47)
[2020-05-05 04:21] VITALS: BP 131/65; PULSE 79; RESP 18; TEMP 37.2; O2SAT 93
[2020-05-05 04:31] LABS: MANUAL DIFF FLAG NO
[2020-05-05 04:33] LABS: Basophils Percent Auto 0.1 % (0-2); Hematocrit 39.5 % (37-47); Hemoglobin 12.9 g/dl (12.0-16.0); Imm Gran Abs Auto 0.05 X10*3/uL (0.00-0.03); Imm Gran Pct Auto 0.4 % (0.0-0.4); Lymphocytes Absolute Auto 1.2 X10*3/uL (1.2-4.9); Lymphocytes Percent Auto 10.1 % (20-40); Mean Corpuscular HGB Conc 32.7 g/dl (31.0-35.0); Mean Corpuscular Hemoglobin 29.7 pg (27.0-33.0); Mean Platelet Volume 12.7 fL (9.4-12.3); Monocytes Absolute Auto 0.5 X10*3/uL (0.1-1.2); Monocytes Percent Auto 4.5 % (2-11); Neutrophils Absolute Auto 10.3 X10*3/uL (2.0-8.3); Neutrophils Percent Auto 84.9 % (45-73); Platelet Count 169 X10*3/uL (160-400); Red Blood Count 4.34 X10*6/uL (4.20-5.50); Red Cell Distribution Width 12.3 % (11.0-16.0); White Blood Count 12.1 X10*3/uL (4.8-10.8)
[2020-05-05 04:52] LABS: Anion Gap 14 (12-20); Blood Urea Nitrogen 9 mg/dL (9-16); Calcium 8.4 mg/dL (8.4-10.2); Carbon Dioxide 25 mmol/L (22-29); Chloride 102 mmol/L (96-108); Creatinine Clr Calc Pharmacy 69.6; Estimated Glomerular Filt Rate > 60; Glucose Random 136 mg/dL (60-115); Sodium 137 mmol/L (135-145)
[2020-05-05 08:07] VITALS: BP 108/51; PULSE 90; RESP 18; TEMP 37.1; O2SAT 90
[2020-05-05] MEDS: Famotidine/PF 20 MG/2 ML VIAL IVPUSH (08:39)
[2020-05-05] MEDS: ondansetron HCL 4 MG/2 ML VIAL IVPUSH (08:39)
--- NOTE | 2020-05-05 09:03 | HO.POSTANES ---
Post Anesthesia Evaluation Post Anesthesia Evaluation Vital Signs: Vital Signs Temp Pulse Resp BP Pulse Ox 05/05/20 08:07 98.8 F 90 18 108/51 L 90 L 05/05/20 04:21 99.0 F 79 18 131/65 93 05/04/20 23:14 98.2 F 72 18 131/74 93 05/04/20 21:14 98 F Anesthesia: General Endotracheal-GETA Mental Status: Awake (Ambulating right now with no problems.) Pain Control: Satisfactory (C/o headache which she states was present before surgery. H/o migraines which she states was not adequately treated. States only [employer] works and not prescribed by pcp.H/o TBI- head scans in past [place].) Nausea/Vomiting: None Hydration: Adequate Anesthesia-Related Issues: No Anes. Related Issues (Encouraged to drink as ordered as may be dehydrated as well. Advised to discuss management of headache with surgeon and PCP once discharged.)
--- NOTE | 2020-05-05 09:16 | MHC.CM.PN ---
met with pt who is independent pt will bed dcd homed with no servies
== END 2020-05-05 11:14 | disposition home or self-care (01) | DRG 403 ==
LOC: HO.SSSA 16:47 → HO.S3 17:30
PROVIDERS: Physician Assistant; Admitting Provider Surgery; PCP Internal Medicine; Visit Provider Surgery
PROC: 0DB64Z3 Excision of Stomach, Percutaneous Endoscopic Approach, Vertical (ICD-10-PCS; CPT 43845; principal; 2020-05-04 12:00)
DX: E66.01 Morbid (severe) obesity due to excess calories (principal); D68.51 Activated protein C resistance; F90.9 Attention-deficit hyperactivity disorder, unspecified type; F32.9 Major depressive disorder, single episode, unspecified; K44.0 Diaphragmatic hernia with obstruction, without gangrene; F41.9 Anxiety disorder, unspecified; K66.0 Peritoneal adhesions (postprocedural) (postinfection); M79.7 Fibromyalgia; K21.9 Gastro-esophageal reflux disease without esophagitis; J45.909 Unspecified asthma, uncomplicated; Z20.822 Contact with and (suspected) exposure to COVID-19; Z68.37 Body mass index [BMI] 37.0-37.9, adult; Z88.2 Allergy status to sulfonamides; Z79.899 Other long term (current) drug therapy
CPT/HCPCS: 36415; 80048; 85014; 85018; 85025; 86078; 86850; 86900; 86901; 87635; 88307; 88342; 99024; A4649; J0131; J0690; J1100; J1170; J1200; J2250; J2370; J2405; J3010; P9017

== ENCOUNTER → 2020-05-10 07:58 | Outpatient (BNVA) | payer OTHER, SELFPAY | PROVIDERS: PCP Internal Medicine; Visit Provider Surgery | DX: E66.9 Obesity, unspecified (principal); Z68.36 Body mass index [BMI] 36.0-36.9, adult | CPT/HCPCS: 99212 ==

== ENCOUNTER 2020-05-14 12:52 | Outpatient (REF) | payer OTHER, SELFPAY ==
--- NOTE | ~2020-05-14 | XR_ITS ---
EXAMINATION: XR CHEST CLINICAL INFORMATION: Chest pain COMPARISON: Previous chest x-ray March 2020 TECHNIQUE: 2 views of the chest were obtained. FINDINGS: The cardiac and mediastinal contours are normal. The lungs are clear. There is no pleural effusion or pneumothorax. There are mild degenerative changes of the spine. There are postsurgical changes to the stomach. XR/XR chest 2V IMPRESSION: No evidence for acute disease in the chest.
== END 2020-05-14 12:53 | disposition home or self-care (01) ==
LOC: HO.XRAY 12:52
PROVIDERS: PCP Internal Medicine; Visit Provider Surgery
DX: R07.9 Chest pain, unspecified (principal)
CPT/HCPCS: 71046

== ENCOUNTER → 2020-05-28 12:56 | Outpatient (BNVA) | payer OTHER, SELFPAY | PROVIDERS: PCP Internal Medicine; Visit Provider Physician Assistant ==

== ENCOUNTER → 2020-06-07 08:12 | Outpatient (BNVA) | payer OTHER, SELFPAY | PROVIDERS: PCP Internal Medicine; Visit Provider Surgery | DX: E66.9 Obesity, unspecified (principal) | CPT/HCPCS: 99212 ==

== ENCOUNTER → 2020-06-15 09:02 | Outpatient (BNVA) | payer OTHER, SELFPAY | PROVIDERS: PCP Internal Medicine; Visit Provider Physician Assistant ==

== ENCOUNTER → 2020-06-23 09:52 | Outpatient (BNVA) | payer OTHER, SELFPAY | PROVIDERS: PCP Internal Medicine; Visit Provider Physician Assistant ==

== ENCOUNTER → 2020-06-30 10:04 | Outpatient (BNVA) | payer OTHER, SELFPAY | PROVIDERS: PCP Internal Medicine; Visit Provider Physician Assistant ==

== ENCOUNTER → 2020-07-06 09:47 | Outpatient (BNVA) | payer OTHER, SELFPAY | PROVIDERS: PCP Internal Medicine; Visit Provider Physician Assistant ==

== ENCOUNTER → 2020-07-07 08:03 | Outpatient (BNVA) | payer OTHER, SELFPAY | PROVIDERS: PCP Internal Medicine; Visit Provider Surgery | DX: E66.9 Obesity, unspecified (principal); Z68.31 Body mass index [BMI] 31.0-31.9, adult | CPT/HCPCS: 99212 ==

== ENCOUNTER → 2020-07-14 11:59 | Outpatient (BNVA) | payer OTHER, SELFPAY | PROVIDERS: PCP Internal Medicine ==

== ENCOUNTER → 2020-07-28 12:36 | Outpatient (BNVA) | payer OTHER, SELFPAY | PROVIDERS: PCP Internal Medicine; Visit Provider Physician Assistant ==

== ENCOUNTER → 2020-08-02 08:16 | Outpatient (BNVA) | payer OTHER, SELFPAY | PROVIDERS: PCP Internal Medicine; Visit Provider Surgery | DX: E66.9 Obesity, unspecified (principal); Z68.31 Body mass index [BMI] 31.0-31.9, adult; Z71.3 Dietary counseling and surveillance | CPT/HCPCS: 99212 ==

== ENCOUNTER → 2020-08-11 12:58 | Outpatient (BNVA) | payer OTHER, SELFPAY | PROVIDERS: PCP Internal Medicine; Referring Provider Internal Medicine; Visit Provider Physician Assistant ==

== ENCOUNTER → 2020-08-17 12:59 | Outpatient (BNVA) | payer OTHER, SELFPAY | PROVIDERS: PCP Internal Medicine; Visit Provider Physician Assistant ==

== ENCOUNTER → 2020-08-27 12:51 | Outpatient (BNVA) | payer OTHER, SELFPAY | PROVIDERS: PCP Internal Medicine; Visit Provider Physician Assistant ==

== ENCOUNTER 2020-09-03 | Outpatient (REF) | payer OTHER, SELFPAY ==
[2020-09-03 13:26] LABS: MANUAL DIFF FLAG NO
[2020-09-03 13:38] LABS: Estimated Average Glucose 114 mg/dL; Hemoglobin A1c % 5.6 %
[2020-09-03 13:40] LABS: Basophils Absolute Auto 0.1 X10*3/uL (0.0-0.2); Basophils Percent Auto 0.5 % (0-2); Eosinophils Absolute Auto 0.1 X10*3/uL (0.0-0.4); Eosinophils Percent Auto 0.7 % (0-4); Hematocrit 40.2 % (37-47); Hemoglobin 13.3 g/dl (12.0-16.0); Imm Gran Abs Auto 0.03 X10*3/uL (0.00-0.03); Imm Gran Pct Auto 0.3 % (0.0-0.4); Lymphocytes Absolute Auto 3.2 X10*3/uL (1.2-4.9); Lymphocytes Percent Auto 34.1 % (20-40); Mean Corpuscular HGB Conc 33.1 g/dl (31.0-35.0); Mean Corpuscular Hemoglobin 30.6 pg (27.0-33.0); Mean Corpuscular Volume 92.6 fL (80-98); Mean Platelet Volume 12.8 fL (9.4-12.3); Monocytes Absolute Auto 0.6 X10*3/uL (0.1-1.2); Monocytes Percent Auto 6.6 % (2-11); Neutrophils Absolute Auto 5.5 X10*3/uL (2.0-8.3); Neutrophils Percent Auto 57.8 % (45-73); Platelet Count 180 X10*3/uL (160-400); Red Blood Count 4.34 X10*6/uL (4.20-5.50); Red Cell Distribution Width 12.6 % (11.0-16.0); White Blood Count 9.5 X10*3/uL (4.8-10.8)
[2020-09-03 13:53] LABS: Alanine Aminotransferase 18 U/L (0-31); Albumin Level 4.4 g/dL (3.5-5.0); Alkaline Phosphatase 65 U/L (39-117); Anion Gap 13 (12-20); Aspartate Amino Transferase 16 U/L (5-31); Bilirubin Total 0.4 mg/dL (0.0-1.0); Blood Urea Nitrogen 15 mg/dL (9-16); Calcium 9.1 mg/dL (8.4-10.2); Carbon Dioxide 25 mmol/L (22-29); Chloride 106 mmol/L (96-108); Cholesterol 187 mg/dL; Estimated Glomerular Filt Rate > 60; Glucose Random 95 mg/dL (60-115); HDL Cholesterol 62 mg/dL; Iron 92 mcg/dL (30-160); LDL Cholesterol Calculated 112 mg/dl; Percent Iron Saturation 29 % (15-50); Potassium 3.9 mmol/L (3.3-5.1); Sodium 140 mmol/L (135-145); Total Iron Binding Capacity 318 mcg/dL (228-428); Total Protein 7.1 g/dL (6.5-8.0); Triglycerides 67 mg/dL; Unsaturated Iron Binding 226 ug/dL
[2020-09-03 14:15] LABS: Ferritin 39 ng/mL (10-250); TSH reflex Free T4 0.69 uIU/mL (0.32-4.0); Vitamin D 25-OH Total 31.9 ng/mL (>30)
[2020-09-03 14:29] LABS: Folate 16.2 ng/mL (> or = 4.0); Vitamin B12 1631 pg/mL (200-900)
[2020-09-04 09:25] LABS: Insulin Level Total 4.1 uIU/mL
== END 2020-09-03 00:01 | disposition home or self-care (01) ==
LOC: HO.LAB
PROVIDERS: Visit Provider Surgery
DX: K91.2 Postsurgical malabsorption, not elsewhere classified (principal); Z98.84 Bariatric surgery status; Z90.3 Acquired absence of stomach [part of]
CPT/HCPCS: 36415; 80053; 80061; 82306; 82607; 82728; 82746; 83036; 83525; 83540; 83970; 84425; 84443; 84590; 84630; 85025; 86140

== ENCOUNTER 2020-09-03 08:28 | Outpatient (REF) | payer OTHER, SELFPAY | END 2020-09-03 08:29 | disposition home or self-care (01) | LOC: CF 08:28 | PROVIDERS: PCP Internal Medicine; Visit Provider Surgery | DX: Z13.89 Encounter for screening for other disorder (principal) | CPT/HCPCS: 36415; 80053; 80061; 83036; 85025 ==

== ENCOUNTER → 2020-10-20 10:01 | Outpatient (BNVA) | payer OTHER, SELFPAY | PROVIDERS: PCP Internal Medicine; Visit Provider Physician Assistant ==

== ENCOUNTER → 2021-02-11 12:17 | Outpatient (BNVA) | payer OTHER, SELFPAY | PROVIDERS: PCP Internal Medicine; Referring Provider Internal Medicine; Visit Provider Physician Assistant Surgical ==

== ENCOUNTER 2021-02-21 08:01 | Outpatient (REF) | payer OTHER, SELFPAY ==
[2021-02-21 14:32] LABS: MANUAL DIFF FLAG NO
[2021-02-21 15:06] LABS: Basophils Absolute Auto 0.1 X10*3/uL (0.0-0.2); Basophils Percent Auto 0.7 % (0-2); Eosinophils Absolute Auto 0.1 X10*3/uL (0.0-0.4); Hematocrit 39.6 % (37.0-47.0); Hemoglobin 12.8 g/dl (12.0-16.0); Imm Gran Abs Auto 0.01 X10*3/uL (0.00-0.03); Imm Gran Pct Auto 0.1 % (0.0-0.4); Lymphocytes Absolute Auto 3.6 X10*3/uL (1.2-4.9); Lymphocytes Percent Auto 43.9 % (20-40); Mean Corpuscular HGB Conc 32.3 g/dl (31.0-35.0); Mean Corpuscular Hemoglobin 29.7 pg (27.0-33.0); Mean Corpuscular Volume 91.9 fL (80.0-98.0); Mean Platelet Volume 12.8 fL (9.4-12.3); Monocytes Absolute Auto 0.4 X10*3/uL (0.1-1.2); Monocytes Percent Auto 5.1 % (2-11); Neutrophils Percent Auto 49.2 % (45-73); Platelet Count 190 X10*3/uL (160-400); Red Blood Count 4.31 X10*6/uL (4.20-5.50); White Blood Count 8.2 X10*3/uL (4.8-10.8)
[2021-02-21 15:33] LABS: Iron 96 mcg/dL (30-160); Percent Iron Saturation 28 % (15-50); Total Iron Binding Capacity 349 mcg/dL (228-428); Unsaturated Iron Binding 253 ug/dL
[2021-02-21 15:49] LABS: Syphilis Screen Nonreactive (Nonreactive); Thyroid Stimulating Hormone 1.22 uIU/mL (0.32-4.0)
[2021-02-21 15:51] LABS: Erythrocyte Sedimentation Rate 2 MM/HR (0-20)
[2021-02-21 15:53] LABS: Vitamin D 25-OH Total 40.2 ng/mL (>30)
[2021-02-21 16:04] LABS: Folate 13.2 ng/mL (> or = 4.0); Vitamin B12 1389 pg/mL (200-900)
[2021-02-21 16:05] LABS: Folate 13.4 ng/mL (> or = 4.0); Vitamin B12 1387 pg/mL (200-900)
[2021-02-23 12:12] LABS: Calcium (PTHI) 9.6 mg/dL (8.6-10.4); PTHI 73 pg/mL (14-64)
[2021-02-23 19:07] LABS: Ceruloplasmin 28 mg/dL (18-53)
[2021-02-24 13:16] LABS: Prot Elec - Albumin 4.3 g/dL (3.8-4.8); Prot Elec - Alpha1 0.3 g/dL (0.2-0.3); Prot Elec - Alpha2 0.7 g/dL (0.5-0.9); Prot Elec - Beta 1 0.5 g/dL (0.4-0.6); Prot Elec - Beta 2 0.4 g/dL (0.2-0.5); Prot Elec - Gamma 1.1 g/dL (0.8-1.7); Prot Elec - Total Protein 7.2 g/dL (6.1-8.1)
[2021-02-25 16:27] LABS: Zinc 73 mcg/dL (60-130)
[2021-02-26 02:01] LABS: Vitamin A 47 mcg/dL (38-98)
[2021-02-26 11:07] LABS: Vitamin B1 10 nmol/L (8-30)
== END 2021-02-21 08:02 | disposition home or self-care (01) ==
LOC: HO.LAB 08:01
PROVIDERS: Internal Medicine; Surgery; Absent Provider Psychiatry & Neurology Neurology; PCP Internal Medicine; Visit Provider Physician Assistant Surgical
DX: R20.0 Anesthesia of skin (principal); R51.9 Headache, unspecified; G62.9 Polyneuropathy, unspecified; K91.2 Postsurgical malabsorption, not elsewhere classified; Z98.890 Other specified postprocedural states; Z98.84 Bariatric surgery status; Z87.19 Personal history of other diseases of the digestive system; Z90.3 Acquired absence of stomach [part of]
CPT/HCPCS: 36415; 82306; 82390; 82607; 82746; 83540; 83735; 83970; 84165; 84425; 84443; 84590; 84630; 85025; 85652; 86780

== ENCOUNTER → 2021-03-09 08:02 | Outpatient (BNVA) | payer OTHER, SELFPAY | PROVIDERS: PCP Internal Medicine; Visit Provider Dietitian, Registered | DX: Z98.84 Bariatric surgery status (principal); Z98.890 Other specified postprocedural states; Z87.19 Personal history of other diseases of the digestive system ==

== ENCOUNTER 2021-03-30 08:38 | Outpatient (REF) | payer OTHER, SELFPAY | END 2021-03-30 08:39 | disposition home or self-care (01) | LOC: HO.XRAY 08:38 | PROVIDERS: PCP Internal Medicine; Visit Provider Surgery | DX: Z13.89 Encounter for screening for other disorder (principal) ==

== ENCOUNTER 2021-03-31 09:02 | Day surgery (SDC) | payer OTHER, SELFPAY ==
[2021-03-31 09:06] VITALS: BP 135/71; PULSE 55; RESP 18; TEMP 36.1; O2SAT 99; BMI 27.4
--- NOTE | 2021-03-31 09:35 | HO.ANESPROP2 ---
HPI - Anesthesia Eval Consult details Narrative: 50 F for EGD PMFSH Active Problems Active Problems: All Active Problems (Updated 08/28/20 @ 00:48 by Joshua Douglas MD) Postgastrectomy malabsorption (Acute) BMI 31.0-31.9,adult (Acute) BMI over 35 (Acute) Chest pain (Acute) BMI 36.0-36.9,adult (Acute) Obesity (Acute) S/P repair of paraesophageal hernia (Acute) S/P laparoscopic sleeve gastrectomy (Acute) Congenital intra-abdominal adhesions (Acute) Intra-abdominal adhesions (Acute) BMI 37.0-37.9, adult (Acute) BMI 39.0-39.9,adult (Acute) Bleeding disorder (Acute) Diaphragmatic hernia (Acute) Prediabetes (Acute) Fibromyalgia (Acute) GERD (gastroesophageal reflux disease) (Acute) Asthma (Acute) ADHD (Acute) Depression (Acute) Past Medical History Medical History ADHD Arthritis Asthma Bleeding disorder Depression Diaphragmatic hernia Fibromyalgia GERD (gastroesophageal reflux disease) History of traumatic head injury Lab test negative for COVID-19 virus Morbid obesity Prediabetes Secondary hyperparathyroidism Sinus arrhythmia seen on electrocardiogram Functional capacity: independent ambulation Family History Family History Father No problems noted. Mother Age: 75 Obesity Insulin dependent diabetes mellitus Sister No problems noted. Family history of problems with anesthesia: No Surgical History Surgical History History of Obesity Status post Peter fundoplication History of Problems with Anesthesia: No Social History Social History Household Members: Significant Other Housing: House Are you a primary dialysis patient care technician to a significant other at home: No Do you presently have visiting nurse or other home services: No Alcohol intake: never Patient Tobacco Use Status: Never used Tobacco Have you been hit, kicked, punched, or otherwise hurt by someone within the past year? If so, by whom?: No Are you DNR?: No Advance Directives: No Advance Directives Information Provided: Yes service: No Meds Allergies Allergy/AdvReac Type Severity Reaction Status Date / Time Sulfa (Sulfonamide Allergy Intermediate RASH Verified 08/27/20 13:21 Antibiotics) [SULFA (SULFONAMIDE ANTIBIOTICS)] Home Medications Medication Instructions Recorded Confirmed Last Taken Type albuterol sulfate 90 mcg/actuation 2 puff INHALATION Q6H PRN 02/20/20 02/21/21 Unknown History aerosol inhaler (ProAir HFA) alprazolam 0.5 mg tablet (Xanax) 0.5 mg PO QID PRN 02/20/20 02/21/21 05/04/20 History venlafaxine 37.5 mg 37.5 mg PO DAILY 02/20/20 02/21/21 05/04/20 History capsule,extended release 24 hr dextroamphetamine-amphetamine ER 30 mg PO DAILY 05/04/20 02/21/21 Unknown History 30 mg 24hr capsule,extend release (Adderall XR) dextroamphetamine 10 mg tablet 10 mg PO DAILY PRN 02/21/21 02/21/21 Unknown History Exam Exam Date and Time: March 31, 2021 0935 Height,Weight and Vital Signs: Height 4 ft 9 in Weight 57.606 kg Last Vital Signs Temp 97 F 03/31/21 09:06 Pulse 55 03/31/21 09:06 Resp 18 03/31/21 09:06 BP 135/71 03/31/21 09:06 Pulse Ox 99 03/31/21 09:06 Airway Mallampati Class: III TM Dist: >3cm Neck ROM: Full Loose/Missing/Broken Teeth: Yes (Loose teeth , top ones . ) Heart: rrr Lungs: bl breath sounds Assessment and Plan Assessment Anesthesia Assessment: Anesthesia Plan Discussed Final Anesthetic Review Family History of Problems with Anesthesia: No History of Problems with Anesthesia: No NPO: Yes ASA Class: II Final Preanesthetic Review: Anes Risks/Benef Reviewed Patient Risk: Intermediate Procedure Risk: Intermediate Anesthetic Plan Anesthetic Plan: MAC: Disposition: Standard PACU
[2021-03-31 09:41] LABS: COVID-19 Test Negative (Negative); IDNOW Serial# 9DD0AD1C
--- NOTE | 2021-03-31 10:07 | MHC.SHP ---
Pre-Procedural Eval Section A Date of Service: 03/31/21 The patient is an INPATIENT: No The History & Physical has been completed within 30 days and I have reviewed it.: Yes Section B Chief Complaint: reflux disease Relevant Family History (Specify if Yes): No Relevant Social History: None Present Medications: None Medical History: No relevant PMH History of Previous Operations: Relevant previous surgery/procedure and date(s) (sleeve gastrectomy) Allergies: Allergies Allergy/AdvReac Type Severity Reaction Status Date / Time Sulfa (Sulfonamide Allergy Intermediate RASH Verified 08/27/20 13:21 Antibiotics) [SULFA (SULFONAMIDE ANTIBIOTICS)] Review of Systems Sugical H&P ROS: Negative: Constitution, Cardiovascular, Respiratory, Neurological, Psychiatric, Hem-Onc, Allergic/Immunologic, Genitourinary, Musculoskeletal, Integumentary, Endocrine and Eyes/Ears/Nose/Throat and Yes, Specify: Gastrointestinal (GERD) Exam Surgical H&P Exam: Normal: HEENT, Normal: Heart, Normal: Lungs, Normal: Extremities, Normal: Abdomen, Normal: Skin and Normal: Neurological Plan Diagnosis/Plan: Unchanged (Upper endoscopy to assess the etiology of her heartburn) I have reviewed the history and physical and performed a pertinent physical examination on my patient. No changes have occurred unless specified.
--- NOTE | 2021-03-31 10:10 | P.BOP_ITS ---
Brief Operative Note Date of Service: 03/31/21 Pre-op diagnosis: GERD Post-op diagnosis: same Procedure: PROCEDURE DATE: 03/31/2021 PREOPERATIVE DIAGNOSIS: GERD, s/p sleeve gastrectomy POSTOPERATIVE DIAGNOSIS: ?Same as above. 1) grade I esophagitis, 2) mild distal gastritis PROCEDURE: [id number] with biopsies Surgeon: ?Ammon Douglas M.D.. Ph.D. Professor Of Industrial Technology: None ? Anesthesia: IV sedation Estimated blood loss: ?Minimal FINDINGS AND PROCEDURE: ? OPERATIVE INDICATIONS: ?The patient is a 50 year old female known to me who underwent a laparoscopic sleeve gastrectomy with recurrent diaphragmatic hernia repair with take-down of previous Peter fundoplication. The patient had remarkable weight loss so far and had a completely uneventful recovery.? The patient was doing very well but has been complaining of GERD. The patient had several no-shows on UGIs we ordered and at the last one she did show up she cold not complete it. Based on this information I recommended an upper endoscopy to evaluate the patient's symptoms. Risks and complications of the surgery were discussed with the patient in advance particularly the possibility of perforation or bleeding that may require surgi nic intervention. The patient understood the risks and was in agreement with the plan. ? PROCEDURE: After informed consent was obtained by the patient, the patient was ?transferred to the Operating Room and was placed in the supine position.? After successful induction of IV sedation, a mouth block was inserted and the patient was placed in the left lateral decubitus position. An upper endoscopy was performed next, the oropharynx and esophagus appeared within the normal limits. There was no hiatal hernia. The z-line was smooth. There was one small tongue of gastric mucosa protruding into the esophagus consistent with grade I esophagitis. One biopsy was obtained from the distal esohagus 2-3 cm proximal to the GE junction and one additional biopsy from the GE junction. The sleeve was entered and it appeared to be of normal size. There was mild gastritis at distal antrum. There was no stricture or ulcer. Biopsies were obtained from the proximal sleeve as well as the distal antrum. No significant bleeding was noted from any of the biopsy sites. There was a clip protruding into the lumen near the distal end of the staple line which was placed extraluminally. There was no evidence of perforation or inflammation and the clip was left in place. The scope was then advanced into the duodenum which appeared to be normal as well. At that point the duodenum ?and the sleeve were decompressed and the scope was withdrawn from the patient's mouth. The patient extubated and was transferred in stable condition to the Recovery Room for further care. I was present and performed all steps of the procedure. There were no residents to assist with this case. Ammon Douglas M.D., Ph.D. Surgeon: Joshua Douglas MD Anesthesia: MAC Was an Professor Of Industrial Technology used for this Procedure?: No Estimated blood loss (mL): 0 IV fluids (mL): 400 Urine output (mL): 0 (No Shirley to record) Condition: stable Disposition: PACU
[2021-03-31] MEDS: Lactated Ringers 1,000 ML 80 ML IVCONT (10:12)
[2021-03-31 10:47] VITALS: BP 93/47; PULSE 74; RESP 15; TEMP 36.6; O2SAT 99
[2021-03-31 11:02] VITALS: BP 100/42; PULSE 61; RESP 16; O2SAT 99
[2021-03-31 11:17] VITALS: BP 109/48; PULSE 65; RESP 18; O2SAT 99
[2021-03-31 11:32] VITALS: BP 104/59; PULSE 68; RESP 18; O2SAT 99
== END 2021-03-31 12:07 | disposition home or self-care (01) ==
PROVIDERS: PCP Internal Medicine; Visit Provider Surgery
PROC: 0DJ08ZZ Inspection of Upper Intestinal Tract, Via Natural or Artificial Opening Endoscopic (ICD-10-PCS; CPT 43235; principal; 2021-03-31 10:10)
DX: K21.9 Gastro-esophageal reflux disease without esophagitis (principal); K29.50 Unspecified chronic gastritis without bleeding; Z98.84 Bariatric surgery status; K20.90 Esophagitis, unspecified without bleeding; Z90.3 Acquired absence of stomach [part of]; J45.909 Unspecified asthma, uncomplicated; D68.4 Acquired coagulation factor deficiency; K44.9 Diaphragmatic hernia without obstruction or gangrene; R73.03 Prediabetes; F32.9 Major depressive disorder, single episode, unspecified; E66.01 Morbid (severe) obesity due to excess calories; Z68.28 Body mass index [BMI] 28.0-28.9, adult; Z79.899 Other long term (current) drug therapy; Z88.2 Allergy status to sulfonamides; Z98.890 Other specified postprocedural states; Z87.19 Personal history of other diseases of the digestive system; Z20.822 Contact with and (suspected) exposure to COVID-19
CPT/HCPCS: 43239; 36415; 87635; 88305; 88342; J0131

== ENCOUNTER 2021-04-04 08:11 | Outpatient (REF) | payer OTHER, SELFPAY ==
[2021-04-04 15:19] LABS: Anion Gap 11 (12-20); Blood Urea Nitrogen 9 mg/dL (9-16); Calcium 9.2 mg/dL (8.4-10.2); Carbon Dioxide 30 mmol/L (22-29); Chloride 105 mmol/L (96-108); Estimated Glomerular Filt Rate > 60; Glucose Random 106 mg/dL (60-115); Sodium 142 mmol/L (135-145)
[2021-04-04 15:43] LABS: TSH reflex Free T4 0.77 uIU/mL (0.32-4.0); Vitamin D 25-OH Total 37.5 ng/mL (>30)
[2021-04-04 15:56] LABS: Folate 13.8 ng/mL (> or = 4.0); Vitamin B12 1354 pg/mL (200-900)
[2021-04-06 12:47] LABS: Calcium (PTHI) 9.3 mg/dL (8.6-10.4); PTHI 73 pg/mL (14-64)
[2021-04-06 22:45] LABS: Zinc 64 mcg/dL (60-130)
[2021-04-08 12:22] LABS: Vitamin B1 16 nmol/L (8-30)
[2021-04-08 17:41] LABS: Vitamin A 45 mcg/dL (38-98)
== END 2021-04-04 08:12 | disposition home or self-care (01) ==
LOC: HO.LAB 08:11
PROVIDERS: PCP Internal Medicine; Visit Provider Physician Assistant Surgical
DX: K91.2 Postsurgical malabsorption, not elsewhere classified (principal); E66.9 Obesity, unspecified; K21.9 Gastro-esophageal reflux disease without esophagitis; Z98.84 Bariatric surgery status; Z90.3 Acquired absence of stomach [part of]; Z98.890 Other specified postprocedural states; Z87.19 Personal history of other diseases of the digestive system
CPT/HCPCS: 36415; 80048; 82306; 82607; 82746; 83970; 84425; 84443; 84590; 84630

== ENCOUNTER → 2021-04-19 08:04 | Outpatient (BNVA) | payer OTHER, SELFPAY | PROVIDERS: PCP Internal Medicine; Visit Provider Physician Assistant Surgical ==

== ENCOUNTER → 2021-04-21 11:10 | Outpatient (BNVA) | payer OTHER, SELFPAY | PROVIDERS: PCP Internal Medicine; Referring Provider Internal Medicine; Visit Provider Physician Assistant Surgical ==

== ENCOUNTER → 2021-05-20 08:15 | Outpatient (BNVA) | payer OTHER, SELFPAY | PROVIDERS: PCP Internal Medicine; Visit Provider Dietitian, Registered | DX: E66.3 Overweight (principal); Z68.27 Body mass index [BMI] 27.0-27.9, adult | CPT/HCPCS: 97803 ==

== ENCOUNTER → 2021-06-20 08:07 | Outpatient (BNVA) | payer OTHER, SELFPAY | PROVIDERS: PCP Internal Medicine; Referring Provider Surgery; Visit Provider Physician Assistant Surgical | DX: Z13.89 Encounter for screening for other disorder (principal) ==

== ENCOUNTER → 2021-06-23 11:21 | Outpatient (BNVA) | payer OTHER, SELFPAY | PROVIDERS: PCP Internal Medicine; Referring Provider Internal Medicine; Visit Provider Physician Assistant | DX: Z13.89 Encounter for screening for other disorder (principal) ==

== ENCOUNTER 2021-09-12 20:27 | Emergency (ER) | payer OTHER, SELFPAY ==
--- NOTE | ~2021-09-12 | CT_ITS ---
EXAMINATION: CT ABDOMEN AND PELVIS WITHOUT CONTRAST CLINICAL INFORMATION: Abdominal pain. History of gastric sleeve procedure. Decreased appetite. COMPARISON: 03/03/2020 TECHNIQUE: Multidetector volumetric imaging was performed from the superior aspect of the liver through the pubic symphysis. Sagittal and coronal reformatted images were obtained on the technologist's workstation. This CT examination was performed using dose optimization techniques as appropriate, variously including the following: *Automated exposure control *Adjustment of mA and/or kV according to patient size (this includes techniques or standardized protocols for targeted exams where dose is matched to indication/reason for exam; i.e. extremities or head) *Use of iterative reconstruction technique DLP: 466 mGy-cm FINDINGS: LUNG BASES: The visualized lung bases are unremarkable. LIVER, GALLBLADDER, AND BILIARY TREE: The liver is normal in size, shape, and attenuation. No focal hepatic lesion or biliary ductal dilatation is present. The gallbladder is unremarkable with no evidence of radiopaque gallstones, gallbladder wall thickening, or obvious pericholecystic inflammatory changes. PANCREAS: Unremarkable. SPLEEN: Unremarkable. ADRENAL GLANDS: Unremarkable. KIDNEYS AND URETERS: The kidneys are normal in size, shape, and attenuation. No hydronephrosis, hydroureter, or calculi seen. Interval increase in size of a exophytic hypodensity emanating from the anterosuperior cortex of left kidney now measuring 1.4 cm with attenuation of 20 Hounsfield units, previously 0.6 cm. No perinephric stranding. BLADDER: Unremarkable. GASTROINTESTINAL TRACT: Sleeve gastrectomy. No intestinal obstruction or inflammation. Normal appendix. ABDOMINAL WALL: No significant hernia is appreciated. LYMPH NODES: Normal. VASCULAR: Unremarkable. PELVIC VISCERA: Uterus and adnexa unremarkable. OSSEOUS STRUCTURES: No acute or suspicious osseous abnormalities. CT/CT abdomen pelvis wo con IMPRESSION: * No acute findings within the abdomen or pelvis. * Intact sleeve gastrectomy. * No intestinal obstruction or inflammation. * Interval increase in size of a now 1.4 cm lesion emanating from the anterosuperior cortex of the left kidney. Recommend nonemergent renal ultrasound to confirm benign cystic etiology. Fleischner guidelines were followed.
[2021-09-12 20:52] VITALS: BP 105/65; PULSE 98; RESP 15; TEMP 36.7; O2SAT 100; BMI 26.4
[2021-09-12 21:33] VITALS: BP 103/70; PULSE 87; RESP 16; TEMP 37.7; O2SAT 100
[2021-09-12 21:44] LABS: MANUAL DIFF FLAG NO
[2021-09-12 21:46] LABS: Basophils Percent Auto 0.2 % (0-2); Eosinophils Absolute Auto 0.1 X10*3/uL (0.0-0.4); Eosinophils Percent Auto 0.7 % (0-4); Hematocrit 38.9 % (37.0-47.0); Hemoglobin 12.7 g/dl (12.0-16.0); Imm Gran Abs Auto 0.03 X10*3/uL (0.00-0.03); Imm Gran Pct Auto 0.2 % (0.0-0.4); Lymphocytes Absolute Auto 1.3 X10*3/uL (1.2-4.9); Lymphocytes Percent Auto 10.1 % (20-40); Mean Corpuscular HGB Conc 32.6 g/dl (31.0-35.0); Mean Corpuscular Hemoglobin 29.2 pg (27.0-33.0); Mean Corpuscular Volume 89.4 fL (80.0-98.0); Mean Platelet Volume 11.5 fL (9.4-12.3); Monocytes Absolute Auto 1.1 X10*3/uL (0.1-1.2); Monocytes Percent Auto 8.8 % (2-11); Neutrophils Absolute Auto 10.1 x10*3/uL (2.0-8.3); Platelet Count 196 X10*3/uL (160-400); Red Blood Count 4.35 X10*6/uL (4.20-5.50); Red Cell Distribution Width 12.2 % (11.0-16.0); White Blood Count 12.7 X10*3/uL (4.8-10.8)
[2021-09-12 22:11] LABS: Alanine Aminotransferase 19 U/L (0-31); Albumin Level 4.2 g/dL (3.5-5.0); Alkaline Phosphatase 58 U/L (39-117); Anion Gap 14 (12-20); Aspartate Amino Transferase 16 U/L (5-31); Bilirubin Direct 0.2 mg/dL (0.0-0.5); Bilirubin Total 0.5 mg/dL (0.0-1.0); Blood Urea Nitrogen 12 mg/dL (9-16); Calcium 9.3 mg/dL (8.4-10.2); Carbon Dioxide 26 mmol/L (22-29); Chloride 106 mmol/L (96-108); Creatinine Clr Calc Pharmacy 52.3; Estimated Glomerular Filt Rate > 60; Glucose Random 120 mg/dL (60-115); Lipase 45 U/L (8-78); Potassium 4.2 mmol/L (3.3-5.1); Sodium 142 mmol/L (135-145); Total Protein 6.7 g/dL (6.5-8.0)
[2021-09-12 23:02] LABS: Appearance Urine CLEAR; Color Urine YELLOW; Glucose Urine UA NEG (NEG); Leukocyte Esterase Urine NEG (NEG); Nitrite Urine NEG (NEG); PH 5.5 (5.0-8.0); Specific Gravity - Urine 1.025 (1.005-1.025); Urine Blood NEG (NEG); Urine Ketones NEG (NEG); Urine Protein NEG (NEG-TRACE)
[2021-09-12 23:04] LABS: UPreg QC Valid YES; Urine Pregnancy NEGATIVE (NEGATIVE)
--- NOTE | 2021-09-12 23:13 | ECG_ITS ---
Test Reason : ABDOMINAL PAIN Blood Pressure : / mmHG Vent. Rate : 079 BPM Atrial Rate : 079 BPM P-R Int : 138 ms QRS Dur : 062 ms QT Int : 370 ms P-R-T Axes : 053 039 046 degrees QTc Int : 424 ms Normal sinus rhythm Cannot rule out Anterior infarct , age undetermined Abnormal ECG When compared with ECG of 24-FEB-2020 12:15, Premature atrial complexes are no longer Present Nonspecific T wave abnormality now evident in Anterior leads Referred By: Delgado Ferguson Electronically Signed By:JOHNNIE BERMEO
--- NOTE | 2021-09-12 23:20 | ED_ITS ---
HPI - General Adult General Chief complaint: Abdominal Pain Stated complaint: Abd pain Time Seen by Provider: 09/12/21 22:56 Source: patient Mode of arrival: ambulatory Limitations: no limitations History of Present Illness HPI narrative: 51-year-old female presents to ED for abdominal pain ( epigastric pain) off and one with decrease appettie since April. Patient had abdominal CT scan ordered by her Bariatric surgeon, but never followed up. Patient states no chest pain or shortness of breath. patient states no lower abdominal pain or complaints. Related Data Home Medications Medication Instructions Recorded Confirmed albuterol sulfate 90 mcg/actuation 2 puff INHALATION Q6H PRN 02/20/20 06/20/21 aerosol inhaler (ProAir HFA) alprazolam 0.5 mg tablet (Xanax) 0.5 mg PO QID PRN 02/20/20 06/20/21 venlafaxine 37.5 mg 37.5 mg PO DAILY 02/20/20 06/20/21 capsule,extended release 24 hr dextroamphetamine sulfate 10 mg 10 mg PO DAILY PRN 02/21/21 06/20/21 tablet Previous Rx's Medication Instructions Recorded albuterol sulfate 90 mcg/actuation 1 puff INHALATION QID PRN #6.7 g 05/14/20 aerosol inhaler (Ventolin HFA) albuterol sulfate 90 mcg/actuation 1 inh INHALATION Q4-6H PRN #1 ea 05/14/20 breath activated powder inhaler,sensor (Proair Digihaler) pantoprazole 40 mg tablet,delayed 40 mg PO DAILY #30 tab 02/11/21 release cholecalciferol (vitamin D3) 125 125 mcg PO DAILY #30 cap 02/21/21 mcg (5,000 unit) capsule cyanocobalamin (vitamin B-12) 1,000 mcg PO DAILY #30 cap 02/21/21 1,000 mcg capsule magnesium oxide 500 mg capsule 500 mg PO DAILY #30 cap 02/21/21 ondansetron 4 mg disintegrating 4 mg PO Q6H PRN #30 tab 04/19/21 tablet famotidine 20 mg tablet (Pepcid) 20 mg PO BID 10 Days #20 tab 09/13/21 simethicone 80 mg chewable tablet 80 mg PO QID PRN 7 Days #28 tab 09/13/21 Allergies Allergy/AdvReac Type Severity Reaction Status Date / Time Sulfa (Sulfonamide Allergy Intermediate RASH Verified 08/27/20 13:21 Antibiotics) [SULFA (SULFONAMIDE ANTIBIOTICS)] Review of Systems Review of Systems: upper abdominal pain Yes all other systems are reviewed and are negative [facility] Past Medical History Medical History ADHD Arthritis Asthma Bleeding disorder Depression Diaphragmatic hernia Fibromyalgia GERD (gastroesophageal reflux disease) History of traumatic head injury Lab test negative for COVID-19 virus Morbid obesity Prediabetes Secondary hyperparathyroidism Sinus arrhythmia seen on electrocardiogram Surgical History History of Obesity Status post Peter fundoplication Family History Family History Father No problems noted. Mother Age: 75 Obesity Insulin dependent diabetes mellitus Sister No problems noted. Social History Social History Household Members: Significant Other Housing: House Are you a primary animal caretaker supervisor to a significant other at home: No Do you presently have visiting nurse or other home services: No Alcohol intake: never Patient Tobacco Use Status: Never used Tobacco Advance Directives: No service: No Physical Exam ED Vital Signs: Vital Signs - 24 hr 09/12/21 20:52 09/12/21 21:33 Temperature 98.0 F 99.8 F Pulse Rate 98 87 Respiratory Rate 15 16 Blood Pressure 105/65 103/70 Pulse Oximetry 100 100 BMI result Body Mass Index 26.4 Const General: cooperative, healthy appearing, comfortable, no acute distress, well developed, alert, awake and Physically active Orientation/consciousness: patient oriented x3 HENMT Head: Yes normal to inspection, Yes No palpable skull fracture present, Yes normocephalic, Yes atraumatic and No abrasion Eyes General: appearance normal, both eyes and all related structures Neck Neck: Yes normal visual inspection, Yes full ROM, Yes no lymphadenopathy, Yes no meningeal signs, Yes trachea midline, Yes supple, No anterior neck swelling and No tender Chest Chest palpation & inspection: normal inspection of the chest and normal palpation of entire chest wall Resp Effort & Inspection: normal respiratory effort and able to speak in complete sentences Auscultation: clear to auscultation bilaterally Cardio Jugular venous distension: no JVD Heart sounds: S1 normal heart sound present and S2 normal heart sound present GI Inspection: Yes normal to inspection and No abdominal wall ecchymosis Palpation (GI): Soft to palpation, not firm, Tenderness to palpation present (GI) in the epigastrum and no guarding General: No CVA tenderness and Yes no CVA tenderness Back/Spine/Pelvis Back: no CVA tenderness, No CVA tenderness and No back tenderness Skin General skin exam: no rashes or lesions noted and elasticity normal Neuro General: patient oriented x3, gait normal, no meningeal signs and CN's II-XI intact bilaterally Cranial nerves: Yes CN's II-XII intact bilaterally Psych Appearance: grossly normal, well kempt and not disheveled Course Course Course Narrative: labs ordered, EKG, and abdominal CT scan ordered will oral contrast Reevaluation(s) Reevaluation #1: EKG negative STEMI. Troponin negative. Labs are normal. Abdominal CT scan done oral contrast does not show any abdominal etiology. Gastric sleeve is int act. Patient will be discharged with anti acid medication. Patient has follow- up with her bariatric surgeon this week and also follow up with Gastroenterology. Medical Decision Making MDM Narrative Medical decision making narrative: Acid reflux Lab Data Result diagrams: 09/12/21 21:38 09/12/21 21:38 Labs: Lab Results 09/12/21 09/12/21 09/12/21 Range/Units 21:38 21:38 22:50 WBC 12.7 H (4.8-10.8) X10*3/uL RBC 4.35 (4.20-5.50) X10*6/uL Hgb 12.7 (12.0-16.0) g/dl Hct 38.9 (37.0-47.0) % MCV 89.4 (80.0-98.0) fL MCH 29.2 (27.0-33.0) pg MCHC 32.6 (31.0-35.0) g/dl RDW 12.2 (11.0-16.0) % Plt Count 196 (160-400) X10*3/uL MPV 11.5 (9.4-12.3) fL Immature Gran % (Auto) 0.2 (0.0-0.4) % Neut % (Auto) 80.0 H (45-73) % Lymph % (Auto) 10.1 L (20-40) % [place] % (Auto) 8.8 (2-11) % Eos % (Auto) 0.7 (0-4) % Baso % (Auto) 0.2 (0-2) % Lymph # (Auto) 1.3 (1.2-4.9) X10*3/uL [place] # (Auto) 1.1 (0.1-1.2) X10*3/uL Eos # (Auto) 0.1 (0.0-0.4) X10*3/uL Baso # (Auto) 0.0 (0.0-0.2) X10*3/uL Abs Immat Gran (auto) 0.03 (0.00-0.03) X10*3/uL Absolute Neuts (auto) 10.1 H (2.0-8.3) x10*3/uL Absolute Nucleated RBC 0.000 (0.0-0.012) X10*3/uL Nucleated RBC % (auto) 0.0 (0.0-0.2) /100WBC PT (9.9-13.0) SEC INR (0.9-1.1) APTT (24.1-38.0) SEC Sodium 142 (135-145) mmol/L Potassium 4.2 (3.3-5.1) mmol/L Chloride 106 (96-108) mmol/L Carbon Dioxide 26 (22-29) mmol/L Anion Gap 14 (12-20) BUN 12 (9-16) mg/dL Creatinine 0.90 (0.5-1.4) mg/dL Estim Creat Clear Calc 52.3 Estimated GFR > 60 Random Glucose 120 H (60-115) mg/dL Calcium 9.3 (8.4-10.2) mg/dL Total Bilirubin 0.5 (0.0-1.0) mg/dL Direct Bilirubin 0.2 (0.0-0.5) mg/dL AST 16 (5-31) U/L ALT 19 (0-31) U/L Alkaline Phosphatase 58 (39-117) U/L Troponin I High Sens (<3.5-17.0) ng/L Total Protein 6.7 (6.5-8.0) g/dL Albumin 4.2 (3.5-5.0) g/dL Lipase 45 (8-78) U/L Urine Color YELLOW Urine Appearance CLEAR Urine pH 5.5 (5.0-8.0) Ur Specific [place] 1.025 (1.005-1.025) Urine Protein NEG (NEG-TRACE) MG/DL Urine Glucose (UA) NEG (NEG) MG/DL Urine Ketones NEG (NEG) MG/DL Urine Blood NEG (NEG) Urine Nitrite NEG (NEG) Ur Leukocyte Esterase NEG (NEG) Urine Test (NEGATIVE) 09/12/21 09/13/21 09/13/21 Range/Units 22:50 00:14 00:14 WBC (4.8-10.8) X10*3/uL RBC (4.20-5.50) X10*6/uL Hgb (12.0-16.0) g/dl Hct (37.0-47.0) % MCV (80.0-98.0) fL MCH (27.0-33.0) pg MCHC (31.0-35.0) g/dl RDW (11.0-16.0) % Plt Count (160-400) X10*3/uL MPV (9.4-12.3) fL Immature Gran % (Auto) (0.0-0.4) % Neut % (Auto) (45-73) % Lymph % (Auto) (20-40) % [place] % (Auto) (2-11) % Eos % (Auto) (0-4) % Baso % (Auto) (0-2) % Lymph # (Auto) (1.2-4.9) X10*3/uL [place] # (Auto) (0.1-1.2) X10*3/uL Eos # (Auto) (0.0-0.4) X10*3/uL Baso # (Auto) (0.0-0.2) X10*3/uL Abs Immat Gran (auto) (0.00-0.03) X10*3/uL Absolute Neuts (auto) (2.0-8.3) x10*3/uL Absolute Nucleated RBC (0.0-0.012) X10*3/uL Nucleated RBC % (auto) (0.0-0.2) /100WBC PT 11.0 (9.9-13.0) SEC INR 1.0 (0.9-1.1) APTT 32.5 (24.1-38.0) SEC Sodium (135-145) mmol/L Potassium (3.3-5.1) mmol/L Chloride (96-108) mmol/L Carbon Dioxide (22-29) mmol/L Anion Gap (12-20) BUN (9-16) mg/dL Creatinine (0.5-1.4) mg/dL Estim Creat Clear Calc Estimated GFR Random Glucose (60-115) mg/dL Calcium (8.4-10.2) mg/dL Total Bilirubin (0.0-1.0) mg/dL Direct Bilirubin (0.0-0.5) mg/dL AST (5-31) U/L ALT (0-31) U/L Alkaline Phosphatase (39-117) U/L Troponin I High Sens < 3.5 (<3.5-17.0) ng/L Total Protein (6.5-8.0) g/dL Albumin (3.5-5.0) g/dL Lipase (8-78) U/L Urine Color Urine Appearance Urine pH (5.0-8.0) Ur Specific [place] (1.005-1.025) Urine Protein (NEG-TRACE) MG/DL Urine Glucose (UA) (NEG) MG/DL Urine Ketones (NEG) MG/DL Urine Blood (NEG) Urine Nitrite (NEG) Ur Leukocyte Esterase (NEG) Urine Test NEGATIVE (NEGATIVE) ECG Data Interpretation: Normal sinus rhythm. Reticular rate 80. Pr interval 138. QRS 64 pr QTC 422. Negative STEMI Discharge Plan Discharge Clinical Impression: Gastroesophageal reflux disease, Abdominal pain Patient Disposition: Home, Self-Care Instructions: Gastroesophageal Reflux Disease (ED), Abdominal Pain (ED) Additional Instructions: Your labs, EKG, and imaging came back normal. You need to follow-up with [facility] surgeon and clamp truck driver. Return to the ED immediately for any chest pain, shortness of breath, nausea, vomiting, rectal bleeding, vomiting blood, dysuria, hematuria, weakness, dizziness, or any other concerning symptoms. Prescriptions: New famotidine [Pepcid] 20 mg tablet 20 mg PO BID 10 Days Qty: 20 0RF simethicone 80 mg tablet,chewable 80 mg PO QID PRN (Reason: abdominal distention) 7 Days Qty: 28 0RF No Action Proair Digihaler 90 mcg/actuation aero powdr breath act w/sensor 1 inh inhalation Q4-6H PRN (Reason: shortness of breath or wheezing) Qty: 1 0RF albuterol sulfate [Ventolin HFA] 90 mcg/actuation HFA aerosol inhaler 1 puff inhalation QID PRN (Reason: shortness of breath or wheezing) Qty: 6.7 0RF pantoprazole 40 mg tablet,delayed release (DR/EC) 40 mg PO DAILY Qty: 30 0RF dextroamphetamine sulfate 10 mg tablet 10 mg PO DAILY PRN0RF alprazolam [Xanax] 0.5 mg tablet 0.5 mg PO QID PRN (Reason: Anxiety) 0RF venlafaxine 37.5 mg capsule,extended release 24hr 37.5 mg PO DAILY 0RF albuterol sulfate [ProAir HFA] 90 mcg/actuation HFA aerosol inhaler 2 puff inhalation Q6H PRN (Reason: Shortness Of Breath) 0RF magnesium oxide 500 mg capsule 500 mg PO DAILY Qty: 30 0RF cholecalciferol (vitamin D3) 125 mcg (5,000 unit) capsule 125 mcg PO DAILY Qty: 30 0RF cyanocobalamin (vitamin B-12) 1,000 mcg capsule 1,000 mcg PO DAILY Qty: 30 0RF ondansetron 4 mg tablet,disintegrating 4 mg PO Q6H PRN (Reason: nausea and vomiting) Qty: 30 0RF Stand Alone Forms: Work/School Release Interventions: LWBS Worksheet Last Done: 09/12/21 21:19 Print Language: Algerian
[2021-09-13] MEDS: Simethicone 80 MG TAB.CHEW 160 MG PO (00:03)
[2021-09-13] MEDS: Butalb/Acetamin/Caff 50/325/40 TABLET 2 TAB PO (00:04)
[2021-09-13] MEDS: SUMAtriptan succinate 50 MG TABLET PO (00:04)
[2021-09-13] MEDS: Ondansetron ODT 4 MG TAB.RAPDIS TRANSLINGU (00:04)
[2021-09-13 00:33] LABS: Partial Thromboplastin Time 32.5 SEC (24.1-38.0)
[2021-09-13 00:40] LABS: Troponin-I High Sensitivity < 3.5 ng/L (<3.5-17.0)
[2021-09-13] MEDS: Famotidine 20 MG TABLET PO (02:12)
[2021-09-13] MEDS: Lidocaine HCl Viscous 2 % 15 ML SOLUTION MUCOUS MEM (02:14)
[2021-09-13 02:56] VITALS: BP 100/56; PULSE 67; RESP 18; TEMP 36.7; O2SAT 98
== END 2021-09-13 02:58 | disposition home or self-care (01) ==
PROVIDERS: Emergency Medicine; Physician Assistant; Emergency Provider Internal Medicine; PCP Internal Medicine
DX: K21.9 Gastro-esophageal reflux disease without esophagitis (principal); R10.13 Epigastric pain; Z98.84 Bariatric surgery status
CPT/HCPCS: 36415; 74176; 80048; 80076; 81003; 81025; 83690; 84484; 85025; 85610; 85730; 93005; 99283; 99284

== ENCOUNTER → 2021-09-14 16:29 | Outpatient (BNVA) | payer OTHER, SELFPAY | PROVIDERS: PCP Internal Medicine; Visit Provider Physician Assistant Surgical | DX: E66.3 Overweight (principal); R10.9 Unspecified abdominal pain; L98.7 Excessive and redundant skin and subcutaneous tissue; Z68.26 Body mass index [BMI] 26.0-26.9, adult | CPT/HCPCS: 99212 ==

== ENCOUNTER 2021-09-20 10:29 | Day surgery (SDC) | payer OTHER, SELFPAY ==
--- NOTE | 2021-09-19 11:51 | P.CONAN_ITS ---
Documented by User: Selam Kellogg NP 09/19/21 11:57 HPI - Anesthesia Eval Consult details Narrative: 51yo F for Upper Endoscopy s/p sleeve 04/2020 [facility] Active Problems Active Problems: All Active Problems (Updated 09/14/21 @ 17:49 by JUAN Boggs) Abdominal pain (Acute) Excess skin (Acute) Overweight (BMI 25.0-29.9) (Acute) Postgastrectomy malabsorption (Acute) BMI 31.0-31.9,adult (Acute) BMI over 35 (Acute) Chest pain (Acute) BMI 36.0-36.9,adult (Acute) Obesity (Acute) S/P repair of paraesophageal hernia (Acute) S/P laparoscopic sleeve gastrectomy (Acute) Congenital intra-abdominal adhesions (Acute) Intra-abdominal adhesions (Acute) BMI 37.0-37.9, adult (Acute) BMI 39.0-39.9,adult (Acute) Bleeding disorder (Acute) Diaphragmatic hernia (Acute) Prediabetes (Acute) Fibromyalgia (Acute) GERD (gastroesophageal reflux disease) (Acute) Asthma (Acute) ADHD (Acute) Depression (Acute) Past Medical History Medical History Arthritis History of traumatic head injury Lab test negative for COVID-19 virus Morbid obesity Secondary hyperparathyroidism Sinus arrhythmia seen on electrocardiogram Family History Family History Father No problems noted. Mother Age: 76 Obesity Insulin dependent diabetes mellitus Sister No problems noted. Family history of problems with anesthesia: No Surgical History Surgical History History of Obesity Status post Peter fundoplication History of Problems with Anesthesia: No Social History Social History Household Members: Significant Other Housing: House Are you a primary progressive care unit registered nurse to a significant other at home: No Do you presently have visiting nurse or other home services: No Alcohol intake: never Patient Tobacco Use Status: Never used Tobacco Use of substances other than those prescribed or required for medical reasons: No Are you DNR?: No Advance Directives: No Advance Directives Information Provided: Yes service: No Meds Allergies Allergy/AdvReac Type Severity Reaction Status Date / Time Sulfa (Sulfonamide Allergy Intermediate RASH Verified 09/14/21 16:43 Antibiotics) [SULFA (SULFONAMIDE ANTIBIOTICS)] Home Medications Medication Instructions Recorded Confirmed Last Taken Type albuterol sulfate 90 mcg/actuation 2 puff inhalation Q6H PRN 02/20/20 09/14/21 Unknown History aerosol inhaler (ProAir HFA) Shortness Of Breath alprazolam 0.5 mg tablet (Xanax) 0.5 mg PO QID PRN Anxiety 02/20/20 09/14/21 05/04/20 History venlafaxine 37.5 mg 37.5 mg PO DAILY 02/20/20 09/14/21 05/04/20 History capsule,extended release 24 hr dextroamphetamine sulfate 10 mg 10 mg PO DAILY PRN 02/21/21 09/14/21 Unknown History tablet Exam Exam Date and Time: September 19, 2021 1151 Pertinent Lab Results Pertinent Lab Results: Laboratory Tests 09/12/21 09/12/21 21:38 21:38 WBC 12.7 H Hgb 12.7 Hct 38.9 Plt Count 196 Sodium 142 Potassium 4.2 Chloride 106 Carbon Dioxide 26 BUN 12 Creatinine 0.90 Narrative Narrative: ECG Data 09/2021 Interpretation: (by ED MD) Normal sinus rhythm.? Reticular rate 80.? Pr interval 138.? QRS 64 pr QTC 422.? Negative STEMI Assessment and Plan Assessment Anesthesia Assessment: Chart Reviewed Final Anesthetic Review Family History of Problems with Anesthesia: No History of Problems with Anesthesia: No Documented by User: Nguyen Louie MD 09/20/21 11:36 [facility] Past Medical History Medical History Arthritis History of traumatic head injury Lab test negative for COVID-19 virus Morbid obesity Secondary hyperparathyroidism Sinus arrhythmia seen on electrocardiogram Functional capacity: independent ambulation Family History Family History Father No problems noted. Mother Age: 76 Obesity Insulin dependent diabetes mellitus Sister No problems noted. Surgical History Surgical History History of Obesity Status post Peter fundoplication Social History Social History Household Members: Significant Other Housing: House Are you a primary progressive care unit registered nurse to a significant other at home: No Do you presently have visiting nurse or other home services: No Alcohol intake: never Patient Tobacco Use Status: Never used Tobacco Use of substances other than those prescribed or required for medical reasons: No Are you DNR?: No Advance Directives: No Advance Directives Information Provided: Yes service: No Meds Allergies Allergy/AdvReac Type Severity Reaction Status Date / Time Sulfa (Sulfonamide Allergy Intermediate RASH Verified 09/14/21 16:43 Antibiotics) [SULFA (SULFONAMIDE ANTIBIOTICS)] Home Medications Medication Instructions Recorded Confirmed Last Taken Type albuterol sulfate 90 mcg/actuation 2 puff inhalation Q6H PRN 02/20/20 09/14/21 Unknown History aerosol inhaler (ProAir HFA) Shortness Of Breath alprazolam 0.5 mg tablet (Xanax) 0.5 mg PO QID PRN Anxiety 02/20/20 09/14/21 05/04/20 History venlafaxine 37.5 mg 37.5 mg PO DAILY 02/20/20 09/14/21 05/04/20 History capsule,extended release 24 hr dextroamphetamine sulfate 10 mg 10 mg PO DAILY PRN 02/21/21 09/14/21 Unknown History tablet Exam Airway Mallampati Class: II TM Dist: >3cm Neck ROM: Full Loose/Missing/Broken Teeth: No Heart: RRR Lungs: CTA Assessment and Plan Assessment Anesthesia Assessment: Anesthesia Plan Discussed Final Anesthetic Review NPO: Yes ASA Class: II Final Preanesthetic Review: Meds/Allgs Chart Reviewed, Consent Obtained/Reviewed and Anes Risks/Benef Reviewed Patient Risk: Low Procedure Risk: Intermediate Anesthetic Plan Anesthetic Plan: MAC: Disposition: Standard PACU
--- NOTE | 2021-09-19 13:42 | MHC.SHP ---
Pre-Procedural Eval Section A Date of Service: 09/19/21 The patient is an INPATIENT: No The History & Physical has been completed within 30 days and I have reviewed it.: Yes Section B Chief Complaint: reflux Relevant Family History (Specify if Yes): No Relevant Social History: None Present Medications: None Medical History: No relevant PMH History of Previous Operations: Relevant previous surgery/procedure and date(s) (sleeve gastrectomy) Allergies: Allergies Allergy/AdvReac Type Severity Reaction Status Date / Time Sulfa (Sulfonamide Allergy Intermediate RASH Verified 09/14/21 16:43 Antibiotics) [SULFA (SULFONAMIDE ANTIBIOTICS)] Review of Systems Sugical H&P ROS: Negative: Constitution, Cardiovascular, Respiratory, Neurological, Psychiatric, Hem-Onc, Allergic/Immunologic, Gastrointestinal, Genitourinary, Musculoskeletal, Integumentary, Endocrine and Eyes/Ears/Nose/Throat Exam Surgical H&P Exam: Normal: HEENT, Normal: Heart, Normal: Lungs, Normal: Extremities, Normal: Abdomen, Normal: Skin and Normal: Neurological Plan Diagnosis/Plan: Unchanged (EGD to assess the status of the GERD. Risks of bleeding and perforation was discussed with the patient.) I have reviewed the history and physical and performed a pertinent physical examination on my patient. No changes have occurred unless specified.
[2021-09-20 11:08] VITALS: BMI 25.4
[2021-09-20 11:23] VITALS: BP 125/60; PULSE 68; RESP 15; TEMP 37.2; O2SAT 98
[2021-09-20] MEDS: Lactated Ringers 1,000 ML 80 ML IVCONT (11:35)
--- NOTE | 2021-09-20 12:10 | P.BOP_ITS ---
Brief Operative Note Date of Service: 09/20/21 Pre-op diagnosis: GERD, s/p sleeve gastrectomy Post-op diagnosis: same (small hiatal hernia) Procedure: PROCEDURE DATE: 09/20/2021 PREOPERATIVE DIAGNOSIS: GERD, s/p sleeve gastrectomy POSTOPERATIVE DIAGNOSIS: ?Same as above. 1) small hiatal hernia PROCEDURE: [id number] with biopsies Surgeon: ?Ammon Douglas M.D.. Ph.D. Respiratory Care Program Director: None ? Anesthesia: IV sedation Estimated blood loss: ?Minimal FINDINGS AND PROCEDURE: ? OPERATIVE INDICATIONS: ?The patient is a 51 year old female known to me who underwent a laparoscopic sleeve gastrectomy. The patient had remarkable weight loss so far and had a completely uneventful recovery.? The patient was doing very well but has been complaining of GERD. Based on this information I recommended an upper endoscopy to evaluate the patient's symptoms. Risks and complications of the surgery were discussed with the patient in advance particularly the possibility of perforation or bleeding that may require surgical intervention. The patient understood the risks and was in agreement with the plan. ? PROCEDURE: After informed consent was obtained by the patient, the patient was ?transferred to the Operating Room and was placed in the supine position.? After successful induction of IV sedation, a mouth block was inserted and the patient was placed in the left lateral decubitus position. An upper endoscopy was performed next, the oropharynx and esophagus appeared within the normal limits. There was a very small hiatal hernia. The z-line was smooth without evidence of esophagitis. Two biopsies were obtained from the distal esohagus 2-3 cm proximal to the GE junction and two additional biopsies from the GE junction. The sleeve was entered and it appeared to be of normal size. There was no gastritis. There was no stricture or ulcer. Biopsies were obtained from the proximal sleeve as well as the distal antrum. There was a metalic clip that was placed externally in the staple line at the time of the sleeve gastrectomy that is protruding into the stomach. This appears to be at the distal end of the staple line. This was present at the previous endoscopy andit appears stable. No significant bleeding was noted from any of the biopsy sites. The scope was then advanced into the duodenum which appeared to be normal as well. At that point the duodenum ?and the sleeve were decompressed and the scope was withdrawn from the patient's mouth. The patient extubated and was transferred in stable condition to the Recovery Room for further care. I was present and performed all steps of the procedure. There were no residents to assist with this case. Ammon Douglas M.D., Ph.D. Surgeon: Joshua Douglas MD Anesthesia: MAC Was an Respiratory Care Program Director used for this Procedure?: No Estimated blood loss (mL): 0 IV fluids (mL): 400 Urine output (mL): 0 Pathology: other (1) GE junction x2, 2) distal esophagus x2, 3) proximal sleeve x1, 4) antrum x1) Condition: stable Disposition: PACU
[2021-09-20 12:35] VITALS: BP 107/48; PULSE 72; RESP 14; TEMP 36.3; O2SAT 100
[2021-09-20 12:50] VITALS: BP 119/65; PULSE 55; RESP 18; TEMP 36.3; O2SAT 98
== END 2021-09-20 13:17 | disposition home or self-care (01) ==
PROVIDERS: PCP Internal Medicine; Visit Provider Surgery
PROC: 0DJ08ZZ Inspection of Upper Intestinal Tract, Via Natural or Artificial Opening Endoscopic (ICD-10-PCS; CPT 43235; principal; 2021-09-20 11:40)
DX: K21.9 Gastro-esophageal reflux disease without esophagitis (principal); Z98.84 Bariatric surgery status; K44.9 Diaphragmatic hernia without obstruction or gangrene; E66.3 Overweight; Z68.26 Body mass index [BMI] 26.0-26.9, adult; L98.7 Excessive and redundant skin and subcutaneous tissue; D68.2 Hereditary deficiency of other clotting factors; J45.909 Unspecified asthma, uncomplicated; M79.7 Fibromyalgia; R73.03 Prediabetes; F90.9 Attention-deficit hyperactivity disorder, unspecified type; Z79.899 Other long term (current) drug therapy; Z87.820 Personal history of traumatic brain injury; Z88.2 Allergy status to sulfonamides
CPT/HCPCS: 43239; 88305; 88342; J2250

== ENCOUNTER → 2021-11-09 13:51 | Outpatient (BNVA) | payer OTHER, SELFPAY | PROVIDERS: PCP Internal Medicine; Visit Provider Physician Assistant Surgical | DX: Z01.818 Encounter for other preprocedural examination (principal); L98.7 Excessive and redundant skin and subcutaneous tissue; Z71.3 Dietary counseling and surveillance; Z79.899 Other long term (current) drug therapy | CPT/HCPCS: 99212 ==

== ENCOUNTER 2021-11-16 12:39 | Outpatient (REF) | payer OTHER, SELFPAY ==
[2021-11-16 13:04] LABS: MANUAL DIFF FLAG NO
[2021-11-16 13:35] LABS: Basophils Percent Auto 0.5 % (0-2); Eosinophils Absolute Auto 0.1 X10*3/uL (0.0-0.4); Eosinophils Percent Auto 1.4 % (0-4); Hematocrit 38.8 % (37.0-47.0); Hemoglobin 12.9 g/dl (12.0-16.0); Imm Gran Abs Auto 0.01 X10*3/uL (0.00-0.03); Imm Gran Pct Auto 0.1 % (0.0-0.4); Lymphocytes Absolute Auto 3.2 X10*3/uL (1.2-4.9); Lymphocytes Percent Auto 43.3 % (20-40); Mean Corpuscular HGB Conc 33.2 g/dl (31.0-35.0); Mean Corpuscular Hemoglobin 29.5 pg (27.0-33.0); Mean Corpuscular Volume 88.8 fL (80.0-98.0); Mean Platelet Volume 11.8 fL (9.4-12.3); Monocytes Absolute Auto 0.6 X10*3/uL (0.1-1.2); Monocytes Percent Auto 7.9 % (2-11); Neutrophils Absolute Auto 3.4 x10*3/uL (2.0-8.3); Neutrophils Percent Auto 46.8 % (45-73); Platelet Count 223 X10*3/uL (160-400); Red Blood Count 4.37 X10*6/uL (4.20-5.50); Red Cell Distribution Width 12.5 % (11.0-16.0); White Blood Count 7.3 X10*3/uL (4.8-10.8)
[2021-11-16 14:01] LABS: INTERNATIONAL NORM RATIO 0.9 (0.9-1.1); Prothrombin Time 10.6 SEC (10.0-13.1)
[2021-11-16 14:04] LABS: Partial Thromboplastin Time 30.9 SEC (26.0-36.4)
[2021-11-16 14:10] LABS: Alanine Aminotransferase 23 U/L (0-31); Albumin Level 4.3 g/dL (3.5-5.0); Alkaline Phosphatase 67 U/L (39-117); Anion Gap 15 (12-20); Aspartate Amino Transferase 21 U/L (5-31); Bilirubin Total 0.3 mg/dL (0.0-1.0); Blood Urea Nitrogen 13 mg/dL (9-16); Calcium 9.2 mg/dL (8.4-10.2); Carbon Dioxide 27 mmol/L (22-29); Chloride 102 mmol/L (96-108); Estimated Glomerular Filt Rate > 60; Glucose Random 90 mg/dL (60-115); Potassium 4.1 mmol/L (3.3-5.1); Sodium 140 mmol/L (135-145); Total Protein 7.1 g/dL (6.5-8.0)
== END 2021-11-16 12:40 | disposition home or self-care (01) ==
LOC: HO.LAB 12:39
PROVIDERS: PCP Internal Medicine; Visit Provider Physician Assistant Surgical
DX: Z01.818 Encounter for other preprocedural examination (principal)
CPT/HCPCS: 36415; 80053; 85025; 85610; 85730

== ENCOUNTER 2021-11-23 08:46 | Day surgery (SDC) | payer OTHER, SELFPAY ==
[2021-11-18 12:45] VITALS: BMI 25.2
--- NOTE | 2021-11-19 14:57 | MHC.SHP ---
Pre-Procedural Eval Section A Date of Service: 11/19/21 The patient is an INPATIENT: No The History & Physical has been completed within 30 days and I have reviewed it.: Yes Section B Chief Complaint: Excessive and redundant skin and subcutaneous tiss Relevant Family History (Specify if Yes): No Relevant Social History: None Present Medications: None Medical History: No relevant PMH History of Previous Operations: Relevant previous surgery/procedure and date(s) (lap sleeve gastrectomy) Allergies: Allergies Allergy/AdvReac Type Severity Reaction Status Date / Time Sulfa (Sulfonamide Allergy Severe RASH, Verified 11/18/21 12:43 Antibiotics) fever, [SULFA (SULFONAMIDE headache ANTIBIOTICS)] Review of Systems Sugical H&P ROS: Negative: Constitution, Cardiovascular, Respiratory, Neurological, Psychiatric, Hem-Onc, Allergic/Immunologic, Gastrointestinal, Genitourinary, Musculoskeletal, Integumentary, Endocrine and Eyes/Ears/Nose/Throat Exam Surgical H&P Exam: Normal: HEENT, Normal: Heart, Normal: Lungs, Normal: Extremities, Normal: Abdomen, Normal: Skin and Normal: Neurological Plan Diagnosis/Plan: Unchanged I have reviewed the history and physical and performed a pertinent physical examination on my patient. No changes have occurred unless specified.
--- NOTE | 2021-11-22 10:14 | P.CONAN_ITS ---
Documented by User: Selam Kellogg NP 11/22/21 10:16 HPI - Anesthesia Eval Consult details Narrative: 51yo F for Panniculectomy s/p gastric sleeve 04/2020 with GA-ETT 7 PMFSH Active Problems Active Problems: All Active Problems (Updated 11/18/21 @ 12:41 by Zoraida Spring, RN) BMI 39.0-39.9,adult (Acute) BMI 37.0-37.9, adult (Acute) Intra-abdominal adhesions (Acute) Congenital intra-abdominal adhesions (Acute) S/P laparoscopic sleeve gastrectomy (Acute) S/P repair of paraesophageal hernia (Acute) Obesity (Acute) BMI 36.0-36.9,adult (Acute) Chest pain (Acute) BMI over 35 (Acute) BMI 31.0-31.9,adult (Acute) Postgastrectomy malabsorption (Acute) Overweight (BMI 25.0-29.9) (Acute) Excess skin (Acute) Abdominal pain (Acute) Pre-op evaluation (Acute) Depression (Acute) ADHD (Acute) Asthma (Acute) GERD (gastroesophageal reflux disease) (Acute) Fibromyalgia (Acute) Prediabetes (Acute) Diaphragmatic hernia (Acute) Bleeding disorder (Acute) Past Medical History Medical History (Updated 11/18/21 @ 12:41 by Zoraida Spring RN) ADHD Arthritis Asthma Bleeding disorder Depression Diaphragmatic hernia Factor VII deficiency Fibromyalgia GERD (gastroesophageal reflux disease) History of blood transfusion reaction History of panic attacks History of traumatic head injury Morbid obesity Personal history of COVID-19 Prediabetes Secondary hyperparathyroidism Sinus arrhythmia seen on electrocardiogram Family History Family History Father No problems noted. Mother Age: 76 Obesity Insulin dependent diabetes mellitus Sister No problems noted. Family history of problems with anesthesia: No Surgical History Surgical History (Updated 11/18/21 @ 12:36 by Zoraida Spring RN) H/O gastric sleeve History of History of esophagogastroduodenoscopy (EGD) Obesity Status post Peter fundoplication History of Problems with Anesthesia: No Social History Social History Household Members: Significant Other Housing: House Are you a primary early breastfeeding care specialist to a significant other at home: No Do you presently have visiting nurse or other home services: No Alcohol intake: never Patient Tobacco Use Status: Never used Tobacco Use of substances other than those prescribed or required for medical reasons: No Have you been hit, kicked, punched, or otherwise hurt by someone within the past year? If so, by whom?: No Are you DNR?: No Advance Directives: Yes Advance Directives Information Provided: No Advance Directives on File: Yes Advance Directives Date on File: 11/15/12 Recently lost weight without trying: No Patient : No FDLMP: 2019 service: No Meds Allergies Allergy/AdvReac Type Severity Reaction Status Date / Time Sulfa (Sulfonamide Allergy Severe RASH, Verified 11/18/21 12:43 Antibiotics) fever, [SULFA (SULFONAMIDE headache ANTIBIOTICS)] Home Medications Medication Instructions Recorded Confirmed Last Taken Type albuterol sulfate 90 mcg/actuation 2 puff inhalation Q6H PRN 02/20/20 11/18/21 U nknown History aerosol inhaler (ProAir HFA) Shortness Of Breath alprazolam 0.5 mg tablet (Xanax) 0.5 mg PO QID PRN Anxiety 02/20/20 11/18/21 09/20/21 06:00 History venlafaxine 37.5 mg 37.5 mg PO DAILY 02/20/20 11/18/21 05/04/20 History capsule,extended release 24 hr dextroamphetamine sulfate 10 mg 10 mg PO DAILY PRN adhd 02/21/21 11/18/21 Unknown History tablet celebrate MVI PO DAILY 11/09/21 11/09/21 Unknown History Exam Exam Date and Time: November 22, 2021 1014 Height,Weight and Vital Signs: Height 4 ft 10 in Weight 54.885 kg Pertinent Lab Results Pertinent Lab Results: Laboratory Tests 11/16/21 11/16/21 13:01 13:01 WBC 7.3 Hgb 12.9 Hct 38.8 Plt Count 223 Sodium 140 Potassium 4.1 Chloride 102 Carbon Dioxide 27 BUN 13 Creatinine 0.76 Narrative Narrative: EKG 09/2021 Vent. Rate : 079 BPM ? ? Atrial Rate : 079 BPM ?? P-R Int : 138 ms? QRS Dur : 062 ms ? ? QT Int : 370 ms ? ? ? P-R-T Axes : 053 039 046 degrees ?? QTc Int : 424 ms ? Normal sinus rhythm Cannot rule out Anterior infarct , age undetermined Abnormal ECG When compared with ECG of 24-FEB-2020 12:15, Premature atrial complexes are no longer Present Nonspecific T wave abnormality now evident in Anterior leads Assessment and Plan Final Anesthetic Review Family History of Problems with Anesthesia: No History of Problems with Anesthesia: No Documented by User: Renetta Garcia MD 11/23/21 10:04 [facility] Past Medical History Medical History (Updated 11/18/21 @ 12:41 by Zoraida Spring, RN) ADHD Arthritis Asthma Bleeding disorder Depression Diaphragmatic hernia Factor VII deficiency Fibromyalgia GERD (gastroesophageal reflux disease) History of blood transfusion reaction History of panic attacks History of traumatic head injury Morbid obesity Personal history of COVID-19 Prediabetes Secondary hyperparathyroidism Sinus arrhythmia seen on electrocardiogram Family History Family History Father No problems noted. Mother Age: 76 Obesity Insulin dependent diabetes mellitus Sister No problems noted. Surgical History Surgical History (Updated 11/18/21 @ 12:36 by Zoraida Spring, RN) H/O gastric sleeve History of History of esophagogastroduodenoscopy (EGD) Obesity Status post Peter fundoplication Social History Social History Household Members: Significant Other Housing: House Are you a primary early breastfeeding care specialist to a significant other at home: No Do you presently have visiting nurse or other home services: No Alcohol intake: never Patient Tobacco Use Status: Never used Tobacco Use of substances other than those prescribed or required for medical reasons: No Have you been hit, kicked, punched, or otherwise hurt by someone within the past year? If so, by whom?: No Are you DNR?: No Advance Directives: Yes Advance Directives Information Provided: No Advance Directives on File: Yes Advance Directives Date on File: 11/15/12 Recently lost weight without trying: No Patient : No FDLMP: 2019 service: No Meds Allergies Allergy/AdvReac Type Severity Reaction Status Date / Time Sulfa (Sulfonamide Allergy Severe RASH, Verified 11/18/21 12:43 Antibiotics) fever, [SULFA (SULFONAMIDE headache ANTIBIOTICS)] Home Medications Medication Instructions Recorded Confirmed Last Taken Type albuterol sulfate 90 mcg/actuation 2 puff inhalation Q6H PRN 02/20/20 11/18/21 Unknown History aerosol inhaler (ProAir HFA) Shortness Of Breath alprazolam 0.5 mg tablet (Xanax) 0.5 mg PO QID PRN Anxiety 02/20/20 11/18/21 09/20/21 06:00 History venlafaxine 37.5 mg 37.5 mg PO DAILY 02/20/20 11/18/21 05/04/20 History capsule,extended release 24 hr dextroamphetamine sulfate 10 mg 10 mg PO DAILY PRN adhd 02/21/21 11/18/21 Unknown History tablet celebrate MVI PO DAILY 11/09/21 11/09/21 Unknown History Exam Airway Mallampati Class: II TM Dist: >3cm Neck ROM: Full Assessment and Plan Assessment Anesthesia Assessment: Anesthesia Plan Discussed and Chart Reviewed Final Anesthetic Review NPO: Yes ASA Class: II Final Preanesthetic Review: No Changes in Pt Med Stat, Meds/Allgs Chart Reviewed, Consent Obtained/Reviewed and Anes Risks/Benef Reviewed Patient Risk: Intermediate Procedure Risk: Intermediate Anesthetic Plan Anesthetic Plan: GA Disposition: Standard PACU
[2021-11-23] VITALS (9 sets, daily range): BP systolic 107–123; BP diastolic 61–68; PULSE 76–106; RESP 12–18; TEMP 36.2–36.3; O2SAT 96–100
[2021-11-23] MEDS: Lactated Ringers 1,000 ML 100 ML IVCONT ×2 (09:39→20:32)
--- NOTE | 2021-11-23 10:36 | PM.OP ---
Brief Operative Note Date of Service: 11/23/21 Pre-op diagnosis: Panniculitis, skin laxity Post-op diagnosis: same Procedure: PROCEDURE: Panniculectomy with umbilical transposition and bilateral subcutaneous fat flaps INDICATION: This a 51 year old female who underwent laparoscopic sleeve gastrectomy on 05/04/2020. She had an excellent result achieving a BMI of 28.8 kg/m2 with a total weight loss of 60.2lbs, or 32% of her TBWL. As a result, she has developed panniculitis which has not resolved despite continuous use of clotrimazole ointment. Panniculectomy was recommended. We discussed the two options of using a combined vertical and horizontal incisions or just a horizontal (bikini) incision. We discussed the two options for the panniculectomy of using a combined vertical and horizontal incisions or just a horizontal (bikini) incision. It was my recommendation to do only horizontal incision based on her body habitus and skin laxity. The patient agreed with this. Risks and complications were discussed with the patient including bleeding, infection, umbilical loss, flap necrosis, asymmetry, dehiscence, seroma, VTE. The patient understood the risks and was in agreement to proceed with surgery. PROCEDURE: The incisions were appropriately marked at the preop area with the patient standing and laying down. After induction of general anesthesia a Shirley catheter and pneumatic compression devices were placed. The patient was prepped and draped in the usual sterile manner and the incisions were marked again and confirmed. The skin was infiltrated with lidocaine and epinephrine. The #10 blade scalpel was used for the large incisions and the #15 blade scalpel for the umbilicus. Cautery was used to divide the subcutaneous tissues until the fascia was identified. Then I used the Thunderbeat (Olympus) to separate the pannus from the fascia. The inferior incision was made initially and I mobilized the flap for a several centimeters cephalad to the umbilicus. The umbilicus was incised circumferentially and detached from the surrounding tissues all the way to the fascia while its stalk was preserved. With the patient in reflex position I confirmed that the skin flaps were appropriate and would allow for the tissues to come together with reasonable tension. At that point a horizontal incision was made 4 cm above the umbilicus. #10 blade was used for the skin, cautery for the dermis and the Thunderbeat for the remaining tissues. An omental flap was raised from the upper flap in order to fill the space under the skin and support the closure of the two flaps. In addition the inferior flap was mobilized caudally for a few centimeters to create a space for the omental flap as well as relieve tension from the closure. A circumferential incision was made at the area where the umbilicus would be re-implanted. The umbilicus was appropriately oriented and was delivered through the defect and was secured in place with a [place]. The resected pannus weighed 785 gr and measured 17'' x 6''. No bleeding was noted anywhere. One AUGUSTO drain was placed from the right corner of the horizontal incision across the wound and was secured in place with a silk suture. The omental flap was secured under the inferior flap with several interrupted 3.0 Monocryl sutures. The two flaps were brought together and were attached at the midline of the horizontal incision with a #3.0 Monocryl suture. At that point the umbilicus was properly oriented and was re-approximated to the skin with 8 interrupted 3.0 Monocryl sutures. In a similar fashion the skin flaps were re-approximated with multiple 3.0 Monocryl sutures. The skin was closed in all incisions and umbilicus with 4.0 Monocryl sutures. Steri-strips, xeroform gauzes and gauzes were used to cover the incisions. An abdominal binder was also placed. The was awaken and was transferred to the recover room in a stable condition. I was present and performed the entire procedure. Mr Pham was the product development assistant. Ammon Douglas MD, PhD, FACS Surgeon: Joshua Douglas MD ?? Surgeon: Joshua Douglas MD Anesthesia: GETA, local and other (14 ml of Zynrelef) Was an Brush Material Preparer used for this Procedure?: No Brush Material Preparer: Georgi Pham Estimated blood loss (mL): 10 IV fluids (mL): 2,000 Urine output (mL): 40 Pathology: other (Abdominal pannus) Condition: stable Disposition: PACU
[2021-11-23] MEDS: LORazepam 1 MG TABLET PO (15:41)
--- NOTE | 2021-11-23 16:56 | PC.NURSE ---
bernadette chavira, at bedside to evaluate patient.
--- NOTE | 2021-11-23 17:37 | PC.NURSE ---
bernadette chavira, speaking with dr. tariq regarding patient status. franco 40 ml output. heart rate low 100's plan admit patient overnight. pa evaluated staining to dressing. nothing staining through
[2021-11-23] MEDS: ondansetron HCL 4 MG/2 ML VIAL IVPUSH ×2 (17:50→20:11)
[2021-11-23] MEDS: Famotidine/PF 20 MG/2 ML VIAL IVPUSH (20:11)
[2021-11-23] MEDS: ceFAZolin Sodium/Dextrose,Iso 2 GM/50 ML PIGGYBACK IV (20:31)
[2021-11-23 20:34] LABS: Hematocrit 35.1 % (37.0-47.0); Hemoglobin 11.9 g/dl (12.0-16.0)
[2021-11-24] MEDS: ondansetron HCL 4 MG/2 ML VIAL IVPUSH (00:29)
[2021-11-24] MEDS: ALPRAZolam 0.5 MG TABLET PO (00:45)
[2021-11-24 04:00] VITALS: BP 103/58; PULSE 76; RESP 18; TEMP 36.4; O2SAT 99
[2021-11-24] MEDS: Lactated Ringers 1,000 ML 100 ML IVCONT (04:24)
[2021-11-24] MEDS: ceFAZolin Sodium/Dextrose,Iso 2 GM/50 ML PIGGYBACK IV (04:24)
[2021-11-24 06:26] LABS: MANUAL DIFF FLAG NO
[2021-11-24 06:28] LABS: Basophils Percent Auto 0.2 % (0-2); Eosinophils Percent Auto 0.1 % (0-4); Hematocrit 30.9 % (37.0-47.0); Hemoglobin 10.2 g/dl (12.0-16.0); Imm Gran Abs Auto 0.06 X10*3/uL (0.00-0.03); Imm Gran Pct Auto 0.5 % (0.0-0.4); Lymphocytes Absolute Auto 2.6 X10*3/uL (1.2-4.9); Lymphocytes Percent Auto 20.4 % (20-40); Mean Corpuscular Hemoglobin 29.7 pg (27.0-33.0); Mean Corpuscular Volume 89.8 fL (80.0-98.0); Mean Platelet Volume 11.7 fL (9.4-12.3); Monocytes Absolute Auto 1.2 X10*3/uL (0.1-1.2); Monocytes Percent Auto 9.2 % (2-11); Neutrophils Absolute Auto 8.8 x10*3/uL (2.0-8.3); Neutrophils Percent Auto 69.6 % (45-73); Platelet Count 170 X10*3/uL (160-400); Red Blood Count 3.44 X10*6/uL (4.20-5.50); Red Cell Distribution Width 12.4 % (11.0-16.0); White Blood Count 12.6 X10*3/uL (4.8-10.8)
[2021-11-24] MEDS: Famotidine/PF 20 MG/2 ML VIAL IVPUSH (07:10)
--- NOTE | 2021-11-24 07:44 | PM.PNGS ---
Subjective Subjective Date of Service: 11/24/21 Interval history: Had to stay overnight due to significant nausea from opioids. Feels better and is drinking protein shakes today. Minimal incisional pain. Physical Exam Vital Signs: Vital Signs: Last Vital Signs Temp 97.5 F 11/24/21 04:00 Pulse 76 11/24/21 04:00 Resp 18 11/24/21 04:00 BP 103/58 L 11/24/21 04:00 Pulse Ox 99 11/24/21 04:00 O2 Del Method 11/24/21 04:00 O2 Flow Rate 2 11/23/21 15:14 BMI result Body Mass Index 25.2 GI: Inspection: Yes normal to inspection, Yes incision (dressings were taken down. No significant drainage. Flaps & umbilicus viabl) and Yes other (Drain with 60 cc sanguinous fluid) Extrem: Right lower extremity: normal to inspection (no calf tenderness) Left lower extremity: normal to inspection (no calf tenderness) Objective Data Active Medications Albuterol Sulfate (Albuterol Sulfate (0.083%) 2.5 Mg/3 Ml Vial.Neb) 2.5 mg INHALE ONCE PRN PRN Reason: Shortness of Breath/Wheezing Alprazolam (Alprazolam 0.5 Mg Tablet) 0.5 mg PO QID PRN PRN Reason: Anxiety Last Admin: 11/24/21 00:45 Dose: 0.5 mg Documented By: RADHA Famotidine (Famotidine/Pf 20 Mg/2 Ml Vial) 20 mg IVPUSH BID [facility] Last Admin: 11/24/21 07:10 Dose: 20 mg Documented By: DARREN Fentanyl (Fentanyl Citrate/Pf 100 Mcg/2 Ml Vial) 50 mcg IVPUSH Q5M PRN; Protocol PRN Reason: Pain, Severe (Pain Scale 7-10) Lactated Ringer's (Lr) 1,000 mls @ 100 mls/hr IVCONT .Q10H [facility] Last Admin: 11/24/21 04:24 Dose: 100 mls/hr Documented By: RADHA Lactated Ringer's (Lr) 1,000 mls @ 80 mls/hr IVCONT .[id number] [facility] Last Admin: 11/23/21 20:35 Dose: Not Given Documented By: RADHA Non-Admin Reason: IV Running Acetaminophen (Ofirmev) 1,000 mg in 100 mls @ 400 mls/hr IV Q6H [facility] Last Infusion: 11/24/21 04:51 Dose: 0 mls/hr Documented By: RADHA Cefazolin Sodium/Dextrose (Ancef) 2 gm in 50 mls @ 100 mls/hr IV Q8H [facility] Last Infusion: 11/24/21 04:52 Dose: 0 mls/hr Documented By: RADHA Metoclopramide HCl (Metoclopramide Hcl 10 Mg/2 Ml Vial) 10 mg IVPUSH Q6H PRN PRN Reason: Nausea Ondansetron HCl (Ondansetron Hcl 4 Mg/2 Ml Vial) 4 mg IVPUSH Q8H [facility] Last Admin: 11/24/21 00:29 Dose: 4 mg Documented By: RADHA Oxycodone HCl (Oxycodone Hcl Immed Release 5 Mg Tablet) 5 mg PO ONCE PRN PRN Reason: Pain, Severe (Pain Scale 7-10) Sodium Chloride (0.9 % Sodium Chloride Flush 3 Ml Syringe) 3 ml IVFLUSH QSHIFT [facility] Last Admin: 11/24/21 07:05 Dose: Not Given Documented By: DARREN Non-Admin Reason: IV Running Venlafaxine HCl (Venlafaxine Hcl Er 37.5 Mg Cap.Er.24h) 37.5 mg PO DAILY [facility] Last Admin: 11/24/21 07:14 Dose: Not Given Documented By: DARREN Non-Admin Reason: Patient Refused Labs CBC & Chem 7: 11/24/21 06:01 Labs: Laboratory Results - last 24 hr 11/24/21 06:01 MCV 89.8 MCH 29.7 MCHC 33.0 RDW 12.4 Plt Count 170 MPV 11.7 Immature Gran % (Auto) 0.5 H Neut % (Auto) 69.6 Lymph % (Auto) 20.4 [place] % (Auto) 9.2 Eos % (Auto) 0.1 Baso % (Auto) 0.2 Lymph # (Auto) 2.6 [place] # (Auto) 1.2 Eos # (Auto) 0.0 Baso # (Auto) 0.0 Abs Immat Gran (auto) 0.06 H Absolute Neuts (auto) 8.8 H Absolute Nucleated RBC 0.000 Nucleated RBC % (auto) 0.0 Procedures Date of Service Date of Service: 11/24/21 Progress Note: A&P Assessment and plan (1) S/P panniculectomy: Status: Acute Assessment and Plan: Feels well. Dressings were changed and patient was taught how to do the dressing changes We will arrange for VNA Will discharge today (2) S/P laparoscopic sleeve gastrectomy: Status: Acute (3) S/P repair of paraesophageal hernia: Status: Acute (4) Excess skin: Status: Acute (5) Panniculitis: Status: Acute Time Spent With Patient Time: Total time spent is greater than 50% in coordination of care (as documented) at patient's floor/unit and/or counseling patient: Quality Stroke Does the patient have a stroke diagnosis?: No VTE Prior VTE?: No VTE Risk Level:: Surgical - moderate VTE Device Contraindication: N/A - Device Ordered VTE Drug Contraindication: Treatment Not Indicated
[2021-11-24 08:00] VITALS: BP 110/60; PULSE 78; RESP 18; TEMP 36.6; O2SAT 98
--- NOTE | 2021-11-24 08:53 | HO.POSTANES ---
Post Anesthesia Evaluation Post Anesthesia Evaluation Vital Signs: Vital Signs Temp Pulse Resp BP Pulse Ox O2 Del Method 11/24/21 08:00 97.8 F 78 18 110/60 98 Room Air 11/24/21 04:00 97.5 F 76 18 103/58 L 99 Room Air 11/23/21 23:09 97.3 F 91 18 110/67 96 Room Air Anesthesia: General Endotracheal-GETA Mental Status: Awake Pain Control: Satisfactory Nausea/Vomiting: None Hydration: Adequate Anesthesia-Related Issues: No Anes. Related Issues
== END 2021-11-24 09:38 | disposition home health service (06) ==
LOC: HO.SSS 10:46 → HO.S3 18:23
PROVIDERS: Physician Assistant Surgical; PCP Internal Medicine; Visit Provider Surgery
PROC: 0JB80ZZ Excision of Abdomen Subcutaneous Tissue and Fascia, Open Approach (ICD-10-PCS; CPT 15830; principal; 2021-11-23 10:20)
DX: M79.3 Panniculitis, unspecified (principal); L98.7 Excessive and redundant skin and subcutaneous tissue; L57.4 Cutis laxa senilis; Z98.84 Bariatric surgery status; Z87.19 Personal history of other diseases of the digestive system; J45.909 Unspecified asthma, uncomplicated; K44.9 Diaphragmatic hernia without obstruction or gangrene; M79.7 Fibromyalgia; R73.03 Prediabetes; I49.8 Other specified cardiac arrhythmias; N25.81 Secondary hyperparathyroidism of renal origin; K21.9 Gastro-esophageal reflux disease without esophagitis; F32.A Depression, unspecified; Z79.899 Other long term (current) drug therapy; Z88.2 Allergy status to sulfonamides; Z98.890 Other specified postprocedural states; Z86.16 Personal history of COVID-19
CPT/HCPCS: 15830; 15847; 36415; 85014; 85018; 85025; 88304; C9088; J0131; J0690; J1100; J1170; J2250; J2405; J3010; J3370

== ENCOUNTER 2021-11-26 20:36 | Emergency (ER) | payer OTHER, SELFPAY ==
[2021-11-26 20:39] VITALS: BP 106/51; BP 120/33; PULSE 71; PULSE 76; RESP 16; TEMP 36.8; O2SAT 100; BMI 25.2
--- NOTE | 2021-11-26 21:03 | ED.GENADULT ---
HPI - General Adult General Chief complaint: General Medical Stated complaint: wound check Time Seen by Provider: 11/26/21 20:41 Related Data Home Medications Medication Instructions Recorded Confirmed albuterol sulfate 90 mcg/actuation 2 puff inhalation Q6H PRN 02/20/20 11/18/21 aerosol inhaler (ProAir HFA) Shortness Of Breath alprazolam 0.5 mg tablet (Xanax) 0.5 mg PO QID PRN Anxiety 02/20/20 11/18/21 dextroamphetamine sulfate 10 mg 10 mg PO DAILY PRN adhd 02/21/21 11/23/21 tablet [id number]-ccgawllieonhu-yaedahwk 1 tab PO Q6H PRN Migraine Headache 11/23/21 11/23/21 50 mg-325 mg-40 mg tablet clonidine HCl 0.2 mg tablet 1 tab PO BEDTIME 11/23/21 11/23/21 dextroamphetamine-amphetamine ER 1 cap PO DAILY 11/23/21 11/23/21 30 mg 24hr capsule,extend release sumatriptan succinate 50 mg tablet 1 tab PO DAILY PRN Migraine 11/23/21 11/23/21 Headache tizanidine 4 mg tablet 1 tab PO TID PRN Pain (Scale Score 11/23/21 11/23/21 4-6) Previous Rx's Medication Instructions Recorded simethicone 80 mg chewable tablet 80 mg PO QID PRN abdominal 09/13/21 distention 7 days #28 tabs ondansetron 4 mg disintegrating 4 mg PO Q6H PRN nausea and 09/14/21 tablet vomiting #30 tabs cephalexin 500 mg capsule 500 mg PO Q12H #60 caps 11/09/21 esomeprazole magnesium 40 mg 40 mg PO DAILY #30 caps 11/18/21 capsule,delayed release Allergies Allergy/AdvReac Type Severity Reaction Status Date / Time Sulfa (Sulfonamide Allergy Severe RASH, Verified 11/18/21 12:43 Antibiotics) fever, [SULFA (SULFONAMIDE headache ANTIBIOTICS)] [facility] Past Medical History Medical History (Updated 11/24/21 @ 07:47 by Joshua Douglas MD) ADHD Arthritis Asthma Bleeding disorder Depression Diaphragmatic hernia Factor VII deficiency Fibromyalgia GERD (gastroesophageal reflux disease) History of blood transfusion reaction History of panic attacks History of traumatic head injury Morbid obesity Personal history of COVID-19 Prediabetes Secondary hyperparathyroidism Sinus arrhythmia seen on electrocardiogram Surgical History (Updated 11/23/21 @ 14:58 by JUAN Boggs) H/O gastric sleeve History of History of esophagogastroduodenoscopy (EGD) Obesity Status post Peter fundoplication Family History Family History Father No problems noted. Mother Age: 76 Obesity Insulin dependent diabetes mellitus Sister No problems noted. Social History Social History Household Members: Spouse Housing: House Are you a primary healthcare associate to a significant other at home: No Do you presently have visiting nurse or other home services: No Alcohol intake: never Patient Tobacco Use Status: Never used Tobacco Advance Directives: Yes Advance Directives on File: Yes Advance Directives Date on File: 05/06/20 service: No Physical Exam ED Vital Signs: Vital Signs - 24 hr 11/26/21 20:39 Temperature 98.2 F Pulse Rate 71 Respiratory Rate 16 Blood Pressure 106/51 L Pulse Oximetry 100 Oxygen Delivery Method Room Air BMI result Body Mass Index 25.2 Course Course Course Narrative: [place] 858pm Dr. Bridges - drainage around the tubing is normal - change dressing as much as possible, obtain CBC, get new binder, strip at home, no other interventions Discharge Plan Discharge Prescriptions: No Action esomeprazole magnesium 40 mg capsule,delayed release(DR/EC) 40 mg PO DAILY Qty: 30 2RF dextroamphetamine sulfate 10 mg tablet 10 mg PO DAILY PRN (Reason: adhd) simethicone 80 mg tablet,chewable 80 mg PO QID PRN (Reason: abdominal distention) 7 Days Qty: 28 0RF clonidine HCl 0.2 mg tablet 1 tab PO BEDTIME tizanidine 4 mg tablet 1 tab PO TID PRN (Reason: Pain (Scale Score 4-6)) sumatriptan succinate 50 mg tablet 1 tab PO DAILY PRN (Reason: Migraine Headache) vsetbvnjlw-lcquxxfkzqgjr-dbrw 50-325-40 mg tablet 1 tab PO Q6H PRN (Reason: Migraine Headache) dextroamphetamine-amphetamine 30 mg capsule,extended release 24hr 1 cap PO DAILY alprazolam [Xanax] 0.5 mg tablet 0.5 mg PO QID PRN (Reason: Anxiety) albuterol sulfate [ProAir HFA] 90 mcg/actuation HFA aerosol inhaler 2 puff inhalation Q6H PRN (Reason: Shortness Of Breath) ondansetron 4 mg tablet,disintegrating 4 mg PO Q6H PRN (Reason: nausea and vomiting) Qty: 30 0RF cephalexin 500 mg capsule 500 mg PO Q12H Qty: 60 1RF
--- NOTE | 2021-11-26 21:35 | ED_ITS ---
HPI - Skin/Abscess/Foreign Bdy General Chief complaint: General Medical Stated complaint: wound check Time Seen by Provider: 11/26/21 20:41 Source: patient and old records reviewed Mode of arrival: EMS Limitations: no limitations History of Present Illness HPI narrative: 51 yo female s/p panniculectomy on 11/23 notes she went home on 11/24 VNA did not come and she has been having clearish yellow/pink drainage around her AUGUSTO drain. She has been going through a lot of gauze as well as her binder got soaked. She called the surgeon but became nervous. The patient has not been stripping her AUGUSTO drain because she didn't know she had to. yesterday had about 140 total in AUGUSTO drain today darker in color with about 20 in drain complaint: other (drainage around AUGUSTO drain) Onset (ago): day(s) (1) Tetanus up to date: yes Location: generalized (abdomen) Severity: moderate Relieving factors: none Exacerbating factors: none Context: other (recent surgery ) Associated symptoms: denies other symptoms Treatments prior to arrival: bandages Related Data Home Medications Medication Instructions Recorded Confirmed albuterol sulfate 90 mcg/actuation 2 puff inhalation Q6H PRN 02/20/20 11/18/21 aerosol inhaler (ProAir HFA) Shortness Of Breath alprazolam 0.5 mg tablet (Xanax) 0.5 mg PO QID PRN Anxiety 02/20/20 11/18/21 dextroamphetamine sulfate 10 mg 10 mg PO DAILY PRN adhd 02/21/21 11/23/21 tablet zsdtyldrwi-ocuxyhpzlehsx-qvoaooze 1 tab PO Q6H PRN Migraine Headache 11/23/21 11/23/21 50 mg-325 mg-40 mg tablet clonidine HCl 0.2 mg tablet 1 tab PO BEDTIME 11/23/21 11/23/21 dextroamphetamine-amphetamine ER 1 cap PO DAILY 11/23/21 11/23/21 30 mg 24hr capsule,extend release sumatriptan succinate 50 mg tablet 1 tab PO DAILY PRN Migraine 11/23/21 11/23/21 Headache tizanidine 4 mg tablet 1 tab PO TID PRN Pain (Scale Score 11/23/21 11/23/21 4-6) Previous Rx's Medication Instructions Recorded simethicone 80 mg chewable tablet 80 mg PO QID PRN abdominal 06/07/22 distention 7 days #28 tabs ondansetron 4 mg disintegrating 4 mg PO Q6H PRN nausea and 09/14/21 tablet vomiting #30 tabs cephalexin 500 mg capsule 500 mg PO Q12H #60 caps 11/09/21 esomeprazole magnesium 40 mg 40 mg PO DAILY #30 caps 11/18/21 capsule,delayed release Allergies Allergy/AdvReac Type Severity Reaction Status Date / Time Sulfa (Sulfonamide Allergy Severe RASH, Verified 11/18/21 12:43 Antibiotics) fever, [SULFA (SULFONAMIDE headache ANTIBIOTICS)] Review of Systems Review of Systems: Constitutional : No Fever, No Chills ENT/Mouth : No sore throat, No Rhinorrhea Eyes: No Eye Pain, No Swelling, No Redness Cardiovascular : No Chest Pain, No SOB Respiratory : No Cough, No Sputum Gastrointestinal : No Nausea, No Vomiting, No abdominal Pain Genitourinary : No Dysuria, No Hematuria Musculoskeletal : No joint pain, No Myalgias, No Joint Swelling Skin : No Skin Lesions, no skin rash Neuro : No Weakness, No Numbness, No Headache All other systems reviewed and are negative [facility] Past Medical History Attestation statement: The following information was validated with the patient. Medical History ADHD Arthritis Asthma Bleeding disorder Depression Diaphragmatic hernia Factor VII deficiency Fibromyalgia GERD (gastroesophageal reflux disease) History of blood transfusion reaction History of panic attacks History of traumatic head injury Morbid obesity Personal history of COVID-19 Prediabetes Secondary hyperparathyroidism Sinus arrhythmia seen on electrocardiogram Surgical History H/O gastric sleeve History of History of esophagogastroduodenoscopy (EGD) Obesity Status post Peter fundoplication Family History Family History Father No problems noted. Mother Age: 76 Obesity Insulin dependent diabetes mellitus Sister No problems noted. Social History Social History Household Members: Spouse Housing: House Are you a primary inpatient care manager rn to a significant other at home: No Do you presently have visiting nurse or other home services: No Alcohol intake: never Patient Tobacco Use Status: Never used Tobacco Advance Directives: Yes Advance Directives on File: Yes Advance Directives Date on File: 05/06/20 service: No Physical Exam Vital Signs: Vital Signs: Last Vital Signs Temp 98.2 F 11/26/21 20:39 Pulse 71 11/26/21 20:39 Resp 16 11/26/21 20:39 BP 106/51 L 11/26/21 20:39 Pulse Ox 100 11/26/21 20:39 O2 Del Method 11/26/21 20:39 BMI result Body Mass Index 25.2 Appearance: Alert. Oriented X3. No acute distress. Eyes: Pupils equal, round and reactive to light. ENT: Pharynx normal. Neck: Normal inspection. Neck supple. CVS: Normal heart rate and rhythm. Pulses normal. Respiratory: No respiratory distress. Breath sounds normal. Abdomen: Soft and nontender. incisions covered in dressings which are saturated with ss fluid - L flank AUGUSTO site SS drainage but no fluctuance binder is also soaked but no fluctuance or erythema, AUGUSTO drain tubing dark blood clotted off which I can't strip - there is dark blood in the drain itself Skin: Skin warm and dry. Normal skin color. Normal skin turgor. Extremities: No lower extremity edema. No calf ttp Neuro: Oriented X 3. No motor deficit. No sensory deficit. Course Course Course Narrative: CBC unchanged given abd pads and RN attempting to find new binder MDM - Skin/Abscess/Foreign Bdy MDM Narrative Medical decision making narrative: 51 yo female s/p panniculectomy with ss drainage outside of her incision but there are no signs of systemic infection - likely due to fluid not going into the AUGUSTO drain as she was not aware she should strip the drain. Will consult her bariatric surgery team. Lab Data Result diagrams: 11/26/21 21:50 Labs: Lab Results 11/26/21 Range/Units 21:50 WBC 11.3 H (4.8-10.8) X10*3/uL RBC 3.62 L (4.20-5.50) X10*6/uL Hgb 10.8 L (12.0-16.0) g/dl Hct 33.1 L (37.0-47.0) % MCV 91.4 (80.0-98.0) fL MCH 29.8 (27.0-33.0) pg MCHC 32.6 (31.0-35.0) g/dl RDW 12.7 (11.0-16.0) % Plt Count 177 (160-400) X10*3/uL MPV 12.1 (9.4-12.3) fL Immature Gran % (Auto) 0.4 (0.0-0.4) % Neut % (Auto) 69.1 (45-73) % Lymph % (Auto) 22.5 (20-40) % [place] % (Auto) 6.8 (2-11) % Eos % (Auto) 0.8 (0-4) % Baso % (Auto) 0.4 (0-2) % Lymph # (Auto) 2.6 (1.2-4.9) X10*3/uL [place] # (Auto) 0.8 (0.1-1.2) X10*3/uL Eos # (Auto) 0.1 (0.0-0.4) X10*3/uL Baso # (Auto) 0.1 (0.0-0.2) X10*3/uL Abs Immat Gran (auto) 0.04 H (0.00-0.03) X10*3/uL Absolute Neuts (auto) 7.8 (2.0-8.3) x10*3/uL Absolute Nucleated RBC 0.000 (0.0-0.012) X10*3/uL Nucleated RBC % (auto) 0.0 (0.0-0.2) /100WBC Discharge Plan Discharge Clinical Impression: Drainage from wound Patient Disposition: Home, Self-Care Instructions: [facility] Drain Care (ED) Additional Instructions: return to ED for any worsening symptoms or concerns surgeon is aware, change dressings as much as you need to, follow up with office this week, strip drain every 6 hours while awake for the next two days Prescriptions: No Action esomeprazole magnesium 40 mg capsule,delayed release(DR/EC) 40 mg PO DAILY Qty: 30 2RF dextroamphetamine sulfate 10 mg tablet 10 mg PO DAILY PRN (Reason: adhd) simethicone 80 mg tablet,chewable 80 mg PO QID PRN (Reason: abdominal distention) 7 Days Qty: 28 0RF clonidine HCl 0.2 mg tablet 1 tab PO BEDTIME tizanidine 4 mg tablet 1 tab PO TID PRN (Reason: Pain (Scale Score 4-6)) sumatriptan succinate 50 mg tablet 1 tab PO DAILY PRN (Reason: Migraine Headache) yhtmxbbhmz-lpzhftbcebgpf-uwic 50-325-40 mg tablet 1 tab PO Q6H PRN (Reason: Migraine Headache) dextroamphetamine-amphetamine 30 mg capsule,extended release 24hr 1 cap PO DAILY alprazolam [Xanax] 0.5 mg tablet 0.5 mg PO QID PRN (Reason: Anxiety) albuterol sulfate [ProAir HFA] 90 mcg/actuation HFA aerosol inhaler 2 puff inhalation Q6H PRN (Reason: Shortness Of Breath) ondansetron 4 mg tablet,disintegrating 4 mg PO Q6H PRN (Reason: nausea and vomiting) Qty: 30 0RF cephalexin 500 mg capsule 500 mg PO Q12H Qty: 60 1RF Interventions: ED Discharge Assessment Last Done: 11/26/21 22:48 Discharge Date/Time: 11/26/21 22:50
[2021-11-26 21:55] LABS: Basophils Absolute Auto 0.1 X10*3/uL (0.0-0.2); Basophils Percent Auto 0.4 % (0-2); Eosinophils Absolute Auto 0.1 X10*3/uL (0.0-0.4); Eosinophils Percent Auto 0.8 % (0-4); Hematocrit 33.1 % (37.0-47.0); Hemoglobin 10.8 g/dl (12.0-16.0); Imm Gran Abs Auto 0.04 X10*3/uL (0.00-0.03); Imm Gran Pct Auto 0.4 % (0.0-0.4); Lymphocytes Absolute Auto 2.6 X10*3/uL (1.2-4.9); Lymphocytes Percent Auto 22.5 % (20-40); MANUAL DIFF FLAG NO; Mean Corpuscular HGB Conc 32.6 g/dl (31.0-35.0); Mean Corpuscular Hemoglobin 29.8 pg (27.0-33.0); Mean Corpuscular Volume 91.4 fL (80.0-98.0); Mean Platelet Volume 12.1 fL (9.4-12.3); Monocytes Absolute Auto 0.8 X10*3/uL (0.1-1.2); Monocytes Percent Auto 6.8 % (2-11); Neutrophils Absolute Auto 7.8 x10*3/uL (2.0-8.3); Neutrophils Percent Auto 69.1 % (45-73); Platelet Count 177 X10*3/uL (160-400); Red Blood Count 3.62 X10*6/uL (4.20-5.50); Red Cell Distribution Width 12.7 % (11.0-16.0); White Blood Count 11.3 X10*3/uL (4.8-10.8)
== END 2021-11-26 22:50 | disposition home or self-care (01) ==
PROVIDERS: Emergency Provider Emergency Medicine; PCP Internal Medicine
DX: T81.89XA Other complications of procedures, not elsewhere classified, initial encounter (principal); Y82.8 Other medical devices associated with adverse incidents; Y92.019 Unspecified place in single-family (private) house as the place of occurrence of the external cause; Z97.8 Presence of other specified devices; Z98.84 Bariatric surgery status
CPT/HCPCS: 36415; 85025; 99283

== ENCOUNTER → 2021-12-01 14:38 | Outpatient (BNVA) | payer OTHER, SELFPAY | PROVIDERS: PCP Internal Medicine; Visit Provider Physician Assistant Surgical | DX: E66.9 Obesity, unspecified (principal); Z68.25 Body mass index [BMI] 25.0-25.9, adult; Z90.3 Acquired absence of stomach [part of]; Z98.890 Other specified postprocedural states | CPT/HCPCS: 99212 ==

== ENCOUNTER 2023-12-02 16:09 | Emergency (ER) | payer SELFPAY ==
--- NOTE | ~2023-12-02 | XR_ITS ---
EXAMINATION: XR CHEST 2 VIEW CLINICAL INFORMATION: Chest pain COMPARISON: Chest x-ray of 05/14/[address] of 09/13/2021 TECHNIQUE: PA and lateral views of the chest obtained. FINDINGS: The lungs are clear. There are no pleural effusions. The cardiomediastinal silhouette is normal. Multiple surgical clips are evident in the epigastric region, compatible with prior sleeve gastrectomy. XR/XR chest 2V IMPRESSION: No acute cardiopulmonary disease. Electronically signed by: Josias Otero MD 12/02/2023 04:54 PM EDT
--- NOTE | 2023-12-02 16:12 | ECG_ITS ---
Test Reason : CP Blood Pressure : / mmHG Vent. Rate : 080 BPM Atrial Rate : 080 BPM P-R Int : 138 ms QRS Dur : 062 ms QT Int : 362 ms P-R-T Axes : 051 029 035 degrees QTc Int : 417 ms Normal sinus rhythm Low voltage QRS Borderline ECG When compared with ECG of 12-SEP-2021 23:52, Nonspecific T wave abnormality no longer evident in Anterior leads Referred By: Sugey Up Electronically Signed By:ALIREZA KIM
[2023-12-02 16:20] VITALS: BP 106/76; PULSE 83; RESP 18; TEMP 36.7; O2SAT 96; BMI 26.8
--- NOTE | 2023-12-02 16:21 | ED.GENADULT ---
HPI - General Adult General Chief complaint: General Medical Stated complaint: chest pain Time Seen by Provider: 12/02/23 21:54 Source: patient, family, RN notes reviewed and old records reviewed Mode of arrival: ambulatory Limitations: no limitations History of Present Illness ED Provider: Gerson Baez PA-C HPI narrative: 53 y/o female with history of fibromyalgia, ADHD, factor VII deficiency, history of morbid obesity s/p laparoscopic repair of recurrent incarcerated diaphragmatic hernia, extensive laparoscopic lysis of adhesions and Peter fundoplication takedown, laparoscopic sleeve gastrectomy and laparoscopic gastropexy by Dr. Bridges in 2020, s/p panniculectomy here with recurrent vomiting and inability to tolerate p.o. that has been worsening since May. Patient states she feels extremely weak and is losing weight. She states she can not drink liquids without feeling very full very quickly and then forcefully vomiting up acidic bile. She reports she is having burning pain in her chest with vomiting. She is coughing after she eats and has bad reflux. She is on extended release Prilosec 20 mg per day. Her insurance does not cover Carafate. She states she had a barium swallow with her doctor at [facility] and was told she does not need any more surgery. MD complaint: Recurrent vomiting, unable tolerate p.o., burning in the chest with reflux Onset (ago): month(s) Location: chest Radiation: proximal Severity: severe Quality: burning Pain Consistency: constant Relieving factors: none Exacerbating factors: eating Associated symptoms: cough Treatments prior to arrival: none Related Data Home Medications ?Medication ?Instructions ?Recorded ?Confirmed albuterol sulfate 90 mcg/actuation 2 puff inhalation Q6H PRN 02/20/20 01/06/22 aerosol inhaler (ProAir HFA) Shortness Of Breath alprazolam 0.5 mg tablet (Xanax) 0.5 mg PO QID PRN Anxiety 02/20/20 01/06/22 dextroamphetamine sulfate 10 mg 10 mg PO DAILY PRN adhd 02/21/21 01/06/22 tablet iycxgikjrc-cdppzudyobaou-qfaebhlv 1 tab PO Q6H PRN Migraine Headache 11/23/21 01/06/22 50 mg-325 mg-40 mg tablet dextroamphetamine-amphetamine ER 1 cap PO DAILY 11/23/21 01/06/22 30 mg 24hr capsule,extend release sumatriptan succinate 50 mg tablet 1 tab PO DAILY PRN Migraine 11/23/21 01/06/22 Headache tizanidine 4 mg tablet 1 tab PO TID PRN Pain (Scale Score 11/23/21 01/06/22 4-6) Previous Rx's ?Medication ?Instructions ?Recorded ondansetron 4 mg disintegrating 4 mg PO Q6H PRN nausea and 09/14/21 tablet vomiting #30 tabs cephalexin 500 mg capsule 500 mg PO Q12H #60 caps 11/09/21 esomeprazole magnesium 40 mg 40 mg PO DAILY #90 caps 04/10/23 capsule,delayed release omeprazole 40 mg capsule,delayed 40 mg PO DAILY #30 caps 12/02/23 release Allergies Allergy/AdvReac Type Severity Reaction Status Date / Time Sulfa (Sulfonamide Allergy Severe RASH, Verified 12/02/23 16:21 Antibiotics) fever, [SULFA (SULFONAMIDE headache ANTIBIOTICS)] plasma protein fraction Allergy Intermediate Hives Verified 12/02/23 16:21 Review of Systems Review of Systems: Yes all other systems are reviewed and are negative [facility] Past Medical History Medical History ADHD Arthritis Asthma Bleeding disorder Depression Diaphragmatic hernia Factor VII deficiency Fibromyalgia GERD (gastroesophageal reflux disease) History of blood transfusion reaction History of panic attacks History of traumatic head injury Morbid obesity Personal history of COVID-19 Prediabetes Secondary hyperparathyroidism Sinus arrhythmia seen on electrocardiogram Surgical History H/O gastric sleeve History of History of esophagogastroduodenoscopy (EGD) Obesity Status post Peter fundoplication Family History Family History Father No problems noted. Mother Age: 76 Obesity Insulin dependent diabetes mellitus Sister No problems noted. Social History Social History Household Members: Spouse Housing: House Are you a primary careers counsellor to a significant other at home: No Do you presently have visiting nurse or other home services: No Alcohol intake: never Comment: not new discomfort. Patient Tobacco Use Status: Never used Tobacco Advance Directives: Yes Advance Directives on File: Yes Advance Directives Date on File: 05/06/20 Do you have a plan to hurt others: No Plan service: No Physical Exam ED Vital Signs: Vital Signs - 24 hr 12/02/23 16:20 Temperature 98.1 F Pulse Rate 83 Respiratory Rate 18 Blood Pressure 106/76 Pulse Oximetry 96 Oxygen Delivery Method Room Air BMI result Body Mass Index 26.8 Appearance: Alert. Oriented X3. No acute distress. Head: normocephalic, atraumatic. Eyes: Pupils equal, round and reactive to light. ENT: Pharynx normal. No tonsillar swelling or exudate. Neck: Normal inspection. Neck supple. CVS: Normal heart rate and rhythm. Pulses normal. Diffuse anterior chest wall tenderness. Respiratory: No respiratory distress. Breath sounds normal. Abdomen: Soft and nontender. +BS x4 Skin: Skin warm and dry. Normal skin color. Normal skin turgor. No rashes. Extremities: No lower extremity edema. No joint swelling. Neuro/psych: Oriented X 3. No motor deficit. No sensory deficit. CN II-XII intact. Normal speech and cognition. Course Course Course Narrative: This is a rapid medical exam performed by Joe Up NP: Additional HPI, ROS, PE not included below will be deferred to primary provider. Patient is a 53-year-old female with history of gastric sleeve, gastroparesis, factor VII deficiency, asthma, GERD, depression, anxiety, diaphragmatic hernia presenting with complaint of epigastric and chest pain for the past week, nausea and vomiting, coughing. States after vomiting the coughing and pain stop. Plan: labs Medications Administered Discontinued Medications Generic Name Dose Route Start Last Admin Trade Name Daveq PRN Reason Stop Dose Admin Al Hydroxide/Mg Hydroxide 30 ml 12/02/23 22:27 12/02/23 23:22 Magnesium Hydrox/Alum Hydrox 30 Ml Oral.Susp PO 12/02/23 22:28 30 ml ONCE ONE Administration Belladonna Alkaloids/Phenobarbital 10 ml 12/02/23 22:27 12/02/23 23:22 Phenobarb/Hyoscy/Atropine/Scop 10 Ml Elixir PO 12/02/23 22:28 10 ml ONCE ONE Administration Lidocaine HCl 15 ml 12/02/23 22:27 12/02/23 23:22 Lidocaine Hcl Viscous 2 % 15 Ml Solution MUCOUS MEM 12/02/23 22:28 15 ml ONCE ONE Administration Medical Decision Making Medical Decision Making [facility] Narrative: 53 y/o female with history of fibromyalgia, ADHD, factor VII deficiency, history of morbid obesity s/p laparoscopic repair of recurrent incarcerated diaphragmatic hernia, extensive laparoscopic lysis of adhesions and Peter fundoplication takedown, laparoscopic sleeve gastrectomy and laparoscopic gastropexy by Dr. Bridges in 2020, s/p panniculectomy presenting to the ER for evaluation of chest discomfort, recurrent vomiting and inability to tolerate p.o., worsening symptoms since May. She states she was told she has gastroparesis. She has a GI doctor at [facility] and her bariatric surgeon is here. Patient's symptoms are chronic. Her vital signs are stable. Her presentation is not consistent with cardiac process. Her EKG and 2- troponins are reassuring. Her lab work is also reassuring. She has no electrolyte abnormalities or evidence of dehydration on her labs. Her physical exam is benign with a nontender abdomen. She continues to deny abdominal pain. Her chest has diffuse chest wall tenderness consistent with muscular pain. Unable to prescribe NSAIDs due to her GI history. Spoke with Georgi pham from bariatric surgery who is recommending she reinitiate protein shakes a rate of 1 ounce every 15 minutes, 3-4 sips over 15 minuts. Patient was given GI cocktail in the ER with some improvement in her symptoms. At this time she is stable for d/c home with increase in PPI, protein shakes per bariatric recs, outpatient bariatric follow up. patient agrees w/ plan. Differential Diagnosis Differential Diagnoses: The differential diagnosis associated with the presentation includes GERD, esophagitis, Boerhaave syndrome, Denisse-Shrestha tear, malabsorption, bowel obstruction less likely given no abdominal pain Admission/Observation Consideration of admission/observation: Escalation of care including admission/observation considered Consult Healthcare Provider Management of the patient was discussed with: Manufacturers Agent Georgi Pham PA-C from Bariatrics Lab Data [facility] Lab Attestation statement: I reviewed the patient's lab results. Mild leukocytosis, likely reactive from vomiting, no major metabolic derangement or suggestion of dehydration for lab work 12/02/23 16:31 12/02/23 16:31 Labs: Lab Results 12/02/23 12/02/23 Range/Units 16:31 21:21 WBC 13.0 H (4.8-10.8) X10*3/uL RBC 4.22 (4.20-5.50) X10*6/uL Hgb 12.3 (12.0-16.0) g/dl Hct 37.8 (37.0-47.0) % MCV 89.6 (80.0-98.0) fL MCH 29.1 (27.0-33.0) pg MCHC 32.5 (31.0-35.0) g/dl RDW 12.3 (11.0-16.0) % Plt Count 226 D (160-400) X10*3/uL MPV 11.6 (9.4-12.3) fL Immature Gran % (Auto) 0.3 (0.0-0.4) % Neut % (Auto) 67.4 (45-73) % Lymph % (Auto) 25.2 (20-40) % [place] % (Auto) 6.1 (2-11) % Eos % (Auto) 0.5 (0-4) % Baso % (Auto) 0.5 (0-2) % Lymph # (Auto) 3.3 (1.2-4.9) X10*3/uL [place] # (Auto) 0.8 (0.1-1.2) X10*3/uL Eos # (Auto) 0.1 (0.0-0.4) X10*3/uL Baso # (Auto) 0.1 (0.0-0.2) X10*3/uL Abs Immat Gran (auto) 0.04 H (0.00-0.03) X10*3/uL Absolute Neuts (auto) 8.7 H (2.0-8.3) x10*3/uL Absolute Nucleated RBC 0.000 (0.0-0.012) X10*3/uL Nucleated RBC % (auto) 0.0 (0.0-0.2) /100WBC PT 12.0 (11.1-13.3) SEC INR 1.0 (0.9-1.1) Sodium 143 (135-145) mmol/L Potassium 3.7 (3.3-5.1) mmol/L Chloride 107 (96-108) mmol/L Carbon Dioxide 25 (22-29) mmol/L Anion Gap 15 (12-20) BUN 16 (9-16) mg/dL Creatinine 0.86 (0.5-1.4) mg/dL Estim Creat Clear Calc 56.4 Estimated GFR > 60 Random Glucose 105 (60-115) mg/dL Calcium 9.3 (8.4-10.2) mg/dL Total Bilirubin 0.5 (0.0-1.0) mg/dL AST 13 (5-31) U/L ALT 11 (0-31) U/L Alkaline Phosphatase 66 (39-117) U/L Troponin I High Sens < 2.7 < 2.7 (<3.5-17.0) ng/L Total Protein 7.0 (6.5-8.0) g/dL Albumin 4.2 (3.5-5.0) g/dL Independent Interpretation I performed an independent interpretation of an: EKG and Plain X-Ray Interpretation: EKG with low voltage QRS, normal sinus rhythm, ventricular rate 80 beats per minute, normal QTC, normal SD interval Chest x-ray without pneumothorax, infiltrate or effusion Radiology Impression Discussion of test interpretation with radiology: I have reviewed the radiologist's reading. External Record Review External record reviewed: Inpatient record, Office record, Outpatient record, Prior outpatient labs and Prior outpatient radiology Tests considered The following testing was considered but not selected: CT abd/pelvis considered but abd exam is benign Prescription Management I considered prescription management with: Pain Medication Chronic Conditions Patient?s care impacted by: Other (gastroparesis) Critical Care Time Critical Care Time Critical Care Time: No Discharge Plan Discharge Clinical Impression: Acute costochondritis Vomiting Qualifiers: Vomiting type: unspecified Nausea presence: without nausea Qualified Code(s): R11.11 - Vomiting without nausea Patient Disposition: Home, Self-Care Instructions: Gastroesophageal Reflux Disease (DC), Esophageal Spasm (ED), Gastroparesis (ED) Additional Instructions: Your lab work, EKG, chest x-ray today were all unremarkable. The pain in her chest is muscular due to recurrent vomiting and strain on the muscles. Recommend Tylenol 1000 mg every 8 hours as needed for pain You had no electrolyte abnormalities or evidence of dehydration. Bariatric surgery is recommending the following: drink protein shakes at a pace of 1 oz every 15 minutes. 3-4 sips of the is over the 15 minutes. It will make a big difference in your symptoms. It takes effort but pain is a strong motivator for success. Recommend increasing your omeprazole to 40 mg - this has been sent to your pharmacy Follow-up with bariatric surgery this week If you develop new or worsening symptoms call 911 or come back to the ER for further evaluation. Prescriptions: New omeprazole 40 mg capsule,delayed release(DR/EC) 40 mg PO DAILY Qty: 30 0RF No Action esomeprazole magnesium 40 mg capsule,delayed release(DR/EC) 40 mg PO DAILY Qty: 90 0RF dextroamphetamine sulfate 10 mg tablet 10 mg PO DAILY PRN (Reason: adhd) tizanidine 4 mg tablet 1 tab PO TID PRN (Reason: Pain (Scale Score 4-6)) sumatriptan succinate 50 mg tablet 1 tab PO DAILY PRN (Reason: Migraine Headache) ynzrzmglju-iuzsrxsctdddr-unli 50-325-40 mg tablet 1 tab PO Q6H PRN (Reason: Migraine Headache) dextroamphetamine-amphetamine 30 mg capsule,extended release 24hr 1 cap PO DAILY alprazolam [Xanax] 0.5 mg tablet 0.5 mg PO QID PRN (Reason: Anxiety) albuterol sulfate [ProAir HFA] 90 mcg/actuation HFA aerosol inhaler 2 puff inhalation Q6H PRN (Reason: Shortness Of Breath) ondansetron 4 mg tablet,disintegrating 4 mg PO Q6H PRN (Reason: nausea and vomiting) Qty: 30 0RF cephalexin 500 mg capsule 500 mg PO Q12H Qty: 60 1RF Referrals: Joshua Douglas MD [Physician] - Stand Alone Forms: Work/School Release Print Language: Tongan
[2023-12-02 16:35] LABS: MANUAL DIFF FLAG NO
[2023-12-02 17:05] LABS: Alanine Aminotransferase 11 U/L (0-31); Albumin Level 4.2 g/dL (3.5-5.0); Alkaline Phosphatase 66 U/L (39-117); Anion Gap 15 (12-20); Aspartate Amino Transferase 13 U/L (5-31); Basophils Absolute Auto 0.1 X10*3/uL (0.0-0.2); Basophils Percent Auto 0.5 % (0-2); Bilirubin Total 0.5 mg/dL (0.0-1.0); Blood Urea Nitrogen 16 mg/dL (9-16); Calcium 9.3 mg/dL (8.4-10.2); Carbon Dioxide 25 mmol/L (22-29); Chloride 107 mmol/L (96-108); Creatinine Clr Calc Pharmacy 56.4; Eosinophils Absolute Auto 0.1 X10*3/uL (0.0-0.4); Eosinophils Percent Auto 0.5 % (0-4); Estimated Glomerular Filt Rate > 60; Glucose Random 105 mg/dL (60-115); Hematocrit 37.8 % (37.0-47.0); Hemoglobin 12.3 g/dl (12.0-16.0); Imm Gran Abs Auto 0.04 X10*3/uL (0.00-0.03); Imm Gran Pct Auto 0.3 % (0.0-0.4); Lymphocytes Absolute Auto 3.3 X10*3/uL (1.2-4.9); Lymphocytes Percent Auto 25.2 % (20-40); Mean Corpuscular HGB Conc 32.5 g/dl (31.0-35.0); Mean Corpuscular Hemoglobin 29.1 pg (27.0-33.0); Mean Corpuscular Volume 89.6 fL (80.0-98.0); Mean Platelet Volume 11.6 fL (9.4-12.3); Monocytes Absolute Auto 0.8 X10*3/uL (0.1-1.2); Monocytes Percent Auto 6.1 % (2-11); Neutrophils Absolute Auto 8.7 x10*3/uL (2.0-8.3); Neutrophils Percent Auto 67.4 % (45-73); Platelet Count 226 X10*3/uL (160-400); Potassium 3.7 mmol/L (3.3-5.1); Red Blood Count 4.22 X10*6/uL (4.20-5.50); Red Cell Distribution Width 12.3 % (11.0-16.0); Sodium 143 mmol/L (135-145)
[2023-12-02 17:22] LABS: Troponin-I High Sensitivity < 2.7 ng/L (<3.5-17.0)
[2023-12-02 22:13] LABS: Troponin-I High Sensitivity < 2.7 ng/L (<3.5-17.0)
[2023-12-02] MEDS: Lidocaine HCl Viscous 2 % 15 ML SOLUTION MUCOUS MEM (23:22)
[2023-12-02] MEDS: Magnesium Hydrox/Alum Hydrox 30 ML ORAL.SUSP PO (23:22)
[2023-12-02] MEDS: PHENobarb/Hyoscy/Atropine/Scop 10 ML ELIXIR PO (23:22)
[2023-12-03 00:19] VITALS: BP 116/68; PULSE 68; RESP 16; TEMP 36.6; O2SAT 96
== END 2023-12-03 00:20 | disposition home or self-care (01) ==
PROVIDERS: Registered Nurse Emergency; Emergency Provider Emergency Medicine Emergency Medical Services; PCP Internal Medicine
DX: M94.0 Chondrocostal junction syndrome [Tietze] (principal); R07.89 Other chest pain; R05.9 Cough, unspecified; R11.11 Vomiting without nausea; Z98.84 Bariatric surgery status; Z79.899 Other long term (current) drug therapy
CPT/HCPCS: 36415; 71046; 80053; 84484; 85025; 85610; 93005; 99283

== ENCOUNTER 2024-04-09 23:52 | Observation (INO) | payer OTHER, SELFPAY ==
--- NOTE | ~2024-04-09 | XR_ITS ---
CLINICAL HISTORY: CP 1 view chest x-ray Comparison: CR - XR CHEST 2V - 05/14/20 13:10 EST Findings: The lungs are clear. Normal size heart. No acute fracture. Multiple surgical clips in the left upper quadrant of the abdomen. IMPRESSION: 1. No acute findings. This document has been electronically signed by: Jaison Berry MD on 04/10/2024 02:12:25
--- NOTE | ~2024-04-09 | CT_ITS ---
CLINICAL HISTORY: S p gastric bypass and vomiting CT abdomen and pelvis without contrast Comparison: CT/REG/IL/SR - CT ABDOMEN PELVIS WO CON - 09/13/21 01:34 EDT Findings: No consolidation or effusion. The gallbladder and solid organs are within normal limits. No renal stones. No hydronephrosis or hydroureter. No bowel obstruction, pneumoperitoneum, or pneumatosis. There is scattered colonic diverticulosis without CT evidence for acute diverticulitis. Postsurgical changes of the stomach are redemonstrated, suggesting prior gastric sleeve procedure. Mild bowel wall thickening present at the duodenal sweep. The duodenal sweep is underdistended. Pelvic contents unremarkable. No bladder wall thickening identified. Normal appendix. The bones are intact. IMPRESSION: 1. Postsurgical changes of the stomach are redemonstrated suggesting prior gastric sleeve procedure. No bowel obstruction or free intraperitoneal air demonstrated. No fluid collections visualized. 2. Mild bowel wall thickening present at the duodenal sweep which may represent sequela of underlying duodenitis or bowel underdistention in this region. 3. Scattered colonic diverticulosis without CT evidence for acute diverticulitis. This document has been electronically signed by: Jayro Navarrete MD on 04/10/2024 03:59:15
[2024-04-10] VITALS (7 sets, daily range): BP systolic 98–129; BP diastolic 52–78; PULSE 66–85; RESP 16–18; TEMP 36.4–37.1; O2SAT 92–100; BMI 26.5
--- NOTE | 2024-04-10 | ECG_ITS ---
Test Reason : DIZZY Blood Pressure : / mmHG Vent. Rate : 056 BPM Atrial Rate : 056 BPM P-R Int : 158 ms QRS Dur : 066 ms QT Int : 412 ms P-R-T Axes : 056 036 043 degrees QTc Int : 397 ms Sinus bradycardia Otherwise normal ECG When compared with ECG of 02-DEC-2023 16:10, No significant change was found Referred By: Generic ED Physician Electronically Signed By:MARTINEZ CERDA MD
[2024-04-10 00:49] LABS: Basophils Absolute Auto 0.1 X10*3/uL (0.0-0.2); Basophils Percent Auto 0.6 % (0-2); Eosinophils Absolute Auto 0.1 X10*3/uL (0.0-0.4); Eosinophils Percent Auto 1.2 % (0-4); Hematocrit 38.5 % (37.0-47.0); Imm Gran Abs Auto 0.03 X10*3/uL (0.00-0.03); Imm Gran Pct Auto 0.3 % (0.0-0.4); Lymphocytes Absolute Auto 3.8 X10*3/uL (1.2-4.9); Lymphocytes Percent Auto 34.7 % (20-40); MANUAL DIFF FLAG NO; Mean Corpuscular HGB Conc 33.8 g/dl (31.0-35.0); Mean Corpuscular Hemoglobin 29.3 pg (27.0-33.0); Mean Corpuscular Volume 86.7 fL (80.0-98.0); Mean Platelet Volume 11.3 fL (9.4-12.3); Monocytes Absolute Auto 0.6 X10*3/uL (0.1-1.2); Monocytes Percent Auto 5.9 % (2-11); Neutrophils Absolute Auto 6.3 x10*3/uL (2.0-8.3); Neutrophils Percent Auto 57.3 % (45-73); Platelet Count 200 X10*3/uL (160-400); Red Blood Count 4.44 X10*6/uL (4.20-5.50); Red Cell Distribution Width 12.3 % (11.0-16.0); White Blood Count 10.9 X10*3/uL (4.8-10.8)
[2024-04-10 00:54] LABS: IDNOW Serial# 6674DD1D; Strep A Nucleic Acid Negative (Negative)
[2024-04-10 01:10] LABS: Alanine Aminotransferase 14 U/L (0-31); Albumin Level 4.3 g/dL (3.5-5.0); Alkaline Phosphatase 61 U/L (39-117); Anion Gap 14 (12-20); Aspartate Amino Transferase 18 U/L (5-31); Bilirubin Total 0.3 mg/dL (0.0-1.0); Blood Urea Nitrogen 12 mg/dL (9-16); Calcium 8.9 mg/dL (8.4-10.2); Carbon Dioxide 25 mmol/L (22-29); Chloride 109 mmol/L (96-108); Glucose Random 105 mg/dL (60-115); Potassium 3.8 mmol/L (3.3-5.1); Sodium 144 mmol/L (135-145)
[2024-04-10 01:16] LABS: Creatinine Clr Calc Pharmacy 57.5; Estimated Glomerular Filt Rate > 60
[2024-04-10 01:23] LABS: Influenza A PCR NEGATIVE (Negative); Influenza B PCR NEGATIVE (Negative); Resp Syncy Virus RNA Qual PCR NEGATIVE (Negative); SARS COV2 PCR INHOUSE NEGATIVE (Negative)
--- NOTE | 2024-04-10 01:24 | ED_ITS ---
HPI - Dental/Oral General Chief complaint: Dental/Oral Stated complaint: abscess in mouth, dizziness Time Seen by Provider: 04/10/24 01:11 Source: patient Mode of arrival: ambulatory Limitations: no limitations History of Present Illness ED Provider: DR. Degroot HPI Narrative: 53-year-old female came in with dental pain, patient was prescribed amoxicillin by her dentist for dental infection unable to tolerate p.o. intake due to persistent vomiting patient s/p gastric bypass and been having vomiting. Patient is also complaining of sore throat and coughing. Related Data Home Medications ?Medication ?Instructions ?Recorded ?Confirmed albuterol sulfate 90 mcg/actuation 2 puff inhalation Q6H PRN 02/20/20 01/06/22 aerosol inhaler (ProAir HFA) Shortness Of Breath alprazolam 0.5 mg tablet (Xanax) 0.5 mg PO QID PRN Anxiety 02/20/20 01/06/22 dextroamphetamine sulfate 10 mg 10 mg PO DAILY PRN adhd 02/21/21 01/06/22 tablet tbdebcpilq-okgcytvypiaym-xivcymtx 1 tab PO Q6H PRN Migraine Headache 11/23/21 01/06/22 50 mg-325 mg-40 mg tablet dextroamphetamine-amphetamine ER 1 cap PO DAILY 11/23/21 01/06/22 30 mg 24hr capsule,extend release sumatriptan succinate 50 mg tablet 1 tab PO DAILY PRN Migraine 11/23/21 01/06/22 Headache tizanidine 4 mg tablet 1 tab PO TID PRN Pain (Scale Score 11/23/21 01/06/22 4-6) Previous Rx's ?Medication ?Instructions ?Recorded ondansetron 4 mg disintegrating 4 mg PO Q6H PRN nausea and 09/14/21 tablet vomiting #30 tabs cephalexin 500 mg capsule 500 mg PO Q12H #60 caps 11/09/21 esomeprazole magnesium 40 mg 40 mg PO DAILY #90 caps 04/10/23 capsule,delayed release omeprazole 40 mg capsule,delayed 40 mg PO DAILY #30 caps 12/02/23 release Allergies Allergy/AdvReac Type Severity Reaction Status Date / Time Sulfa (Sulfonamide Allergy Severe RASH, Verified 04/10/24 00:25 Antibiotics) fever, [SULFA (SULFONAMIDE headache ANTIBIOTICS)] plasma protein fraction Allergy Intermediate Hives Verified 04/10/24 00:25 Review of Systems 2 Review of Systems: All other systems are reviewed and are negative Constitutional: Reports as per HPI and Reports no additional constitutional complaints Eyes: Reports as per HPI and Reports no additional eye complaints Reports system reviewed and no additional complaints, except as documented Cardiovascular: Reports as per HPI and Reports no additional cardiovascular complaints Respiratory: Reports as per HPI and Reports no additional respiratory complaints Gastrointestinal: Reports as per HPI and Reports no additional gastrointestinal complaints Genitourinary: Reports no additional female genitourinary complaints Musculoskeletal: Reports no additional musculoskeletal complaints Skin/Breast: Reports system reviewed and no additional complaints, except as docu Psychiatric: Reports no additional psychiatric complaints Endocrine: Reports no additional endocrine complaints Hematologic/Lymphatic: Reports no additional hematologic/lymphatic complaints Allergic/Immunologic: Reports no additional allergic/immunologic complaints Reports system reviewed and no additional complaints, except as documented and Reports Abnormal speech present [facility] Past Medical History Medical History Factor VII deficiency History of blood transfusion reaction History of panic attacks Personal history of COVID-19 History of traumatic head injury Arthritis Sinus arrhythmia seen on electrocardiogram Bleeding disorder Secondary hyperparathyroidism Diaphragmatic hernia Prediabetes Fibromyalgia GERD (gastroesophageal reflux disease) Asthma ADHD Depression Morbid obesity Surgical History History of esophagogastroduodenoscopy (EGD) H/O gastric sleeve Obesity History of Status post Peter fundoplication Family History Family History Father No problems noted. Mother Age: 78 Obesity Insulin dependent diabetes mellitus Sister No problems noted. Social History Social History Household Members: Spouse Housing: House Are you a primary personal care worker to a significant other at home: No Do you presently have visiting nurse or other home services: No Alcohol intake: never Comment: not new discomfort. Patient Tobacco Use Status: Never used Tobacco Smoked in Last 30 Days: No Use of substances other than those prescribed or required for medical reasons: No Advance Directives: Yes Advance Directives on File: Yes Advance Directives Date on File: 05/06/20 service: No Physical Exam 2 Vital Signs: Vital Signs: Last Vital Signs Temp 97.9 F 04/10/24 00:16 Pulse 66 04/10/24 00:16 Resp 18 04/10/24 00:16 BP 129/78 04/10/24 00:16 Pulse Ox 100 04/10/24 00:16 O2 Del Method Room Air 04/10/24 00:16 BMI result Body Mass Index 26.5 Vital signs have been reviewed and appear to be correct. Blood pressure elevated. Heart rate normal. Respiratory rate normal. Temperature normal. Oxygen saturation normal. Appearance: Alert. Oriented X3. No acute distress. Head: Normal external exam. Normocephalic. Atraumatic. No Talley signs noted. No raccoon eyes noted, widespread dental decay, no fluctuation, no abscess is appreciated. Eyes: PERRLA. EOMI. Conjunctiva and sclera normal. Eyelids normal. ENT: TM's Normal. Pharynx normal. Uvula midline. Moist mucous membranes. No trismus noted. No drooling noted. No muffled voice noted. Neck: Normal inspection. Neck supple. FROM. No adenopathy. Thyroid Normal. No meningeal signs. No neck mass noted. CVS: Normal heart rate and rhythm. Heart sound normal. No murmurs noted. Pulses normal throughout. Respiratory: No respiratory distress. Painless inspiration. Breath sounds normal. No wheezes/rales/rhonchi noted. Chest nontender. No accessory muscle usage noted or decreased air movement noted. Abdomen: Soft and nontender. Bowel sounds normal in all 4 quadrants. No distention noted. No organomegaly noted. No visible injury noted. Back: No CVA tenderness. Full range of motion noted. Skin: Skin warm and dry. Normal skin color. Normal skin turgor. No rashes/lesions/lacerations noted. Extremities: No lower extremity edema. Extremities exhibit normal range of motion. Extremities nontender. Neuro: Oriented X 3. Cranial nerve exam: II-XII are grossly intact No motor deficit. No sensory deficit. Reflexes normal. Course Reevaluation(s) Reevaluation #1: Dental infection require antibiotic that patient can not keep down due to intractable vomiting. CT abdomen pelvis showed no complication from gastric sleeve gastrectomy. Will admit for IV Zosyn. Time: 04:06 Medications Administered Discontinued Medications Generic Name Dose Route Start Last Admin Trade Name Freq PRN Reason Stop Dose Admin Hydromorphone HCl 1 mg 04/10/24 02:16 04/10/24 02:29 Hydromorphone Hcl 1 Mg/Ml Syringe IVPUSH 04/10/24 02:17 1 mg ONCE ONE Administration Protocol Sodium Chloride 1,000 mls @ 999 mls/hr 04/10/24 01:22 04/10/24 01:55 Ns IV 04/10/24 02:22 999 mls/hr .Q1H1M ONE Administration Piperacillin Sod/Tazobactam 50 mls @ 100 mls/hr 04/10/24 01:22 04/10/24 03:55 Sod 3.375 gm/ Sodium Chloride IV 04/10/24 01:51 Infused ONCE ONE Infusion Lorazepam 2 mg 04/10/24 03:08 04/10/24 03:16 Lorazepam 2 Mg/Ml Vial IVPUSH 04/10/24 03:09 2 mg ONCE ONE Administration Morphine Sulfate 1 mg 04/10/24 01:22 04/10/24 01:55 Morphine Sulfate 2 Mg/Ml Cartridge IVPUSH 04/10/24 01:23 1 mg ONCE ONE Administration Protocol Ondansetron HCl 4 mg 04/10/24 01:56 04/10/24 02:00 Ondansetron Hcl 4 Mg/2 Ml Vial IVPUSH 04/10/24 01:57 4 mg ONCE ONE Administration Medical Decision Making Differential Diagnosis Differential Diagnoses: The differential diagnosis associated with the presentation includes (Gastrectomy complication, small-bowel obstruction, dehydration, electrolyte derangement, severe anemia, intractable vomiting.) Admission/Observation Consideration of admission/observation: Escalation of care including admission/observation considered Lab Data MDM Lab Attestation statement: I reviewed the patient's lab results. 04/10/24 00:27 04/10/24 02:21 Labs: Lab Results 04/10/24 04/10/24 Range/Units 00:27 02:21 WBC 10.9 H (4.8-10.8) X10*3/uL RBC 4.44 (4.20-5.50) X10*6/uL Hgb 13.0 (12.0-16.0) g/dl Hct 38.5 (37.0-47.0) % MCV 86.7 (80.0-98.0) fL MCH 29.3 (27.0-33.0) pg MCHC 33.8 (31.0-35.0) g/dl RDW 12.3 (11.0-16.0) % Plt Count 200 (160-400) X10*3/uL MPV 11.3 (9.4-12.3) fL Immature Gran % (Auto) 0.3 (0.0-0.4) % Neut % (Auto) 57.3 (45-73) % Lymph % (Auto) 34.7 (20-40) % [place] % (Auto) 5.9 (2-11) % Eos % (Auto) 1.2 (0-4) % Baso % (Auto) 0.6 (0-2) % Lymph # (Auto) 3.8 (1.2-4.9) X10*3/uL [place] # (Auto) 0.6 (0.1-1.2) X10*3/uL Eos # (Auto) 0.1 (0.0-0.4) X10*3/uL Baso # (Auto) 0.1 (0.0-0.2) X10*3/uL Abs Immat Gran (auto) 0.03 (0.00-0.03) X10*3/uL Absolute Neuts (auto) 6.3 (2.0-8.3) x10*3/uL Absolute Nucleated RBC 0.000 (0.0-0.012) X10*3/uL Nucleated RBC % (auto) 0.0 (0.0-0.2) /100WBC Sodium 144 143 (135-145) mmol/L Potassium 3.8 3.8 (3.3-5.1) mmol/L Chloride 109 H 110 H (96-108) mmol/L Carbon Dioxide 25 25 (22-29) mmol/L Anion Gap 14 12 (12-20) BUN 12 13 (9-16) mg/dL Creatinine 0.84 0.85 (0.5-1.4) mg/dL Estim Creat Clear Calc 57.5 56.8 Estimated GFR > 60 > 60 Random Glucose 105 106 (60-115) mg/dL Lactic Acid 0.7 (0.5-2.0) mmol/L Calcium 8.9 9.1 (8.4-10.2) mg/dL Total Bilirubin 0.3 (0.0-1.0) mg/dL AST 18 (5-31) U/L ALT 14 (0-31) U/L Alkaline Phosphatase 61 (39-117) U/L Total Protein 7.0 (6.5-8.0) g/dL Albumin 4.3 (3.5-5.0) g/dL Influenza Type A (PCR) NEGATIVE (Negative) Influenza Type B (PCR) NEGATIVE (Negative) RSV RNA Qual (PCR) NEGATIVE (Negative) SARS-CoV-2 RNA (RT-PCR) NEGATIVE (Negative) S. pyogenes GrpA PAULY Negative (Negative) Independent Interpretation I performed an independent interpretation of an: CT Scan (Abdomen and pelvis:1. Postsurgical changes of the stomach are redemonstrated suggesting prior gastric sleeve procedure. No bowel obstruction or free intraperitoneal air demonstrated. No fluid collections visualized. 2. Mild bowel wall thickening present at the duodenal sweep which may represent s) Radiology Impression Discussion of test interpretation with radiology: I have reviewed the radiologist's reading. Discharge Plan Discharge Clinical Impression: Intractable vomiting, Dental infection Patient Disposition: Admitted As Inpatient Print Language: Icelandic
[2024-04-10] MEDS: 0.9 % Sodium Chloride 1,000 ML 999 ML IV (01:55)
[2024-04-10] MEDS: Morphine Sulfate 2 MG/ML CARTRIDGE 1 MG IVPUSH (01:55)
[2024-04-10] MEDS: ondansetron HCL 4 MG/2 ML VIAL IVPUSH ×2 (02:00→13:32)
--- NOTE | 2024-04-10 02:25 | PC.NURSE ---
pt hard stick for blood culture collection.
[2024-04-10] MEDS: HYDROmorphone HCl 1 MG/ML SYRINGE IVPUSH (02:29)
[2024-04-10] MEDS: Piperacillin Sodium/Tazobactam 3.375 GM in 0.9 % Sodium Chloride 50 ML IV (02:29)
--- NOTE | 2024-04-10 02:38 | PC.NURSE ---
medicated for pain management, notified provider pt having increase anxiety at this time.
[2024-04-10 02:47] LABS: Anion Gap 12 (12-20); Blood Urea Nitrogen 13 mg/dL (9-16); Calcium 9.1 mg/dL (8.4-10.2); Carbon Dioxide 25 mmol/L (22-29); Chloride 110 mmol/L (96-108); Creatinine Clr Calc Pharmacy 56.8; Estimated Glomerular Filt Rate > 60; Glucose Random 106 mg/dL (60-115); Lactic Acid 0.7 mmol/L (0.5-2.0); Potassium 3.8 mmol/L (3.3-5.1); Sodium 143 mmol/L (135-145)
[2024-04-10] MEDS: LORazepam 2 MG/ML VIAL IVPUSH (03:16)
--- NOTE | 2024-04-10 05:37 | PC.NURSE ---
pt is resting in bed no N/V at this time.
--- NOTE | 2024-04-10 05:57 | PM.IMHP ---
History of Present Illness Date of Service: 04/10/24 <MAIKOL Irwin Last Filed: 04/10/24 06:08> Attending physician on admission: Xandre Young <MAIKOL Irwin Filed: 04/10/24 06:08> Chief Complaint: Dental abscess <MAIKOL Irwin Last Filed: 04/10/24 06:08> Patient is a 53-year-old female with a past medical history significant for gastric bypass, gastroparesis, secondary hyperparathyroidism, factor 7, ADHD and anxiety, who presented to the ED due to left upper dental abscess with associated dizziness, headache, fatigue, burning throat and unable to tolerate p.o. Augmentin. She was prescribed Augmentin by her dentist on Sunday reports she had about 3 doses before having severe nausea and vomiting and unable to proceed with antibiotics. She called her dentist who told her to report to the ED for IV antibiotics. She is also reporting body aches headache fatigue and burning throat. She feels the symptoms are related to her dental infection. The throat burning feels different than her typical reflux. She denies any abdominal pain, fever or chills. She reports taking Augmentin many times in the past without any reaction. The patient is a difficult historian. <MAIKOL Irwin Filed: 04/10/24 06:08> Review of Systems Constitutional: Constitutional: Reports body ache(s), Denies chills, Reports fatigue, Denies fever(s) and Reports headache(s) <MAIKOL Irwin Filed: 04/10/24 06:08> Eyes: Eyes: Denies change in vision <MAIKOL Irwin Filed: 04/10/24 06:08> ENT: Reports headache(s), Reports nasal congestion, Reports nasal discharge, Reports sinus pressure and Reports sore throat <MAIKOL Irwin Filed: 04/10/24 06:08> Cardiovascular: Cardiovascular: Denies chest pain, Denies rapid heart rate, Denies lightheadedness and Denies dyspnea <MAIKOL Irwin Filed: 04/10/24 06:08> Respiratory: Respiratory: Denies chest congestion, Denies cough, Denies dyspnea and Denies wheezing <[email or web address] Last Filed: 04/10/24 06:08> Gastrointestinal: Gastrointestinal: Denies coffee ground emesis, Reports dyspepsia, Denies diarrhea, Reports nausea, Reports vomiting and Denies hematemesis <[email or web address] Last Filed: 04/10/24 06:08> Genitourinary: Genitourinary: Denies dysuria and Denies urinary urgency [email or web address] Last Filed: 04/10/24 06:08> Musculoskeletal: Musculoskeletal: Reports myalgias [email or web address] Last Filed: 04/10/24 06:08> Integumentary/Breasts: Skin/Breast: Denies rash [email or web address] Last Filed: 04/10/24 06:08> Neurologic: Denies confusion and Reports headache(s) <[email or web address] Last Filed: 04/10/24 06:08> Psychiatric: Psychiatric: Denies confusion [email or web address] Last Filed: 04/10/24 06:08> Endocrine: Endocrine: Reports fatigue <[email or web address] Last Filed: 04/10/24 06:08> Hematologic/Lymphatic: Hematologic/Lymphatic: Denies easy bleeding and Denies easy bruising <[email or web address] Last Filed: 04/10/24 06:08> Allergic/Immunologic: Allergic/Immunologic: Denies wheezing <[email or web address] Last Filed: 04/10/24 06:08> [facility] Medical History: Medical History Factor VII deficiency History of blood transfusion reaction History of panic attacks Personal history of COVID-19 History of traumatic head injury Arthritis Sinus arrhythmia seen on electrocardiogram Bleeding disorder Secondary hyperparathyroidism Diaphragmatic hernia Prediabetes Fibromyalgia GERD (gastroesophageal reflux disease) Asthma ADHD Depression Morbid obesity <Melissa Childs [email or web address] [email or web address] Last Filed: 04/10/24 06:08> Family History: Family History Father No problems noted. Mother Age: 78 Obesity Insulin dependent diabetes mellitus Sister No problems noted. <Melissa Childs PA-C - Last Filed: 04/10/24 06:08> Surgical History: Surgical History History of esophagogastroduodenoscopy (EGD) H/O gastric sleeve Obesity History of Status post Peter fundoplication <MAIKOL Irwin Last Filed: 04/10/24 06:08> Social History: Social History (Reviewed 04/10/24 @ : by Marsha Degroot MD) Household Members: Spouse Housing: House Are you a primary coronary care unit nurse to a significant other at home: No Do you presently have visiting nurse or other home services: No Alcohol intake: never Comment: not new discomfort. Patient Tobacco Use Status: Never used Tobacco Smoked in Last 30 Days: No Use of substances other than those prescribed or required for medical reasons: No Advance Directives: Yes Advance Directives on File: Yes Advance Directives Date on File: 05/06/20 service: No <MAIKOL Irwin Last Filed: 04/10/24 06:08> Meds Allergies/Adverse reactions: Allergies Allergy/AdvReac Type Severity Reaction Status Date / Time Sulfa (Sulfonamide Allergy Severe RASH, Verified 04/10/24 00:25 Antibiotics) fever, [SULFA (SULFONAMIDE headache ANTIBIOTICS)] plasma protein fraction Allergy Intermediate Hives Verified 04/10/24 00:25 <MAIKOL Irwin Last Filed: 04/10/24 06:08> Home medications: Home Medications ?Medication ?Instructions ?Recorded ?Confirmed ?Last Taken ?Type albuterol sulfate 90 mcg/actuation 2 puff inhalation Q6H PRN 02/20/20 01/06/22 Unknown History aerosol inhaler (ProAir HFA) Shortness Of Breath alprazolam 0.5 mg tablet (Xanax) 0.5 mg PO QID PRN Anxiety 02/20/20 01/06/22 09/20/21 06:00 History dextroamphetamine sulfate 10 mg 10 mg PO DAILY PRN adhd 02/21/21 01/06/22 Unknown History tablet dilxlilxlw-kdcjewqkirvik-lpyuyepv 1 tab PO Q6H PRN Migraine Headache 11/23/21 01/06/22 Unknown History 50 mg-325 mg-40 mg tablet dextroamphetamine-amphetamine ER 1 cap PO DAILY 11/23/21 01/06/22 Unknown History 30 mg 24hr capsule,extend release sumatriptan succinate 50 mg tablet 1 tab PO DAILY PRN Migraine 11/23/21 01/06/22 Unknown History Headache tizanidine 4 mg tablet 1 tab PO TID PRN Pain (Scale Score 11/23/21 01/06/22 Unknown History 4-6) <MAIKOL Irwin Last Filed: 04/10/24 06:08> Physical Exam Vital Signs and Narrative: Vital Signs: Last Vital Signs Temp 98.1 F 04/10/24 05:46 Pulse 73 04/10/24 05:46 Resp 16 04/10/24 05:46 BP 114/54 L 04/10/24 05:46 Pulse Ox 98 04/10/24 05:46 O2 Del Method Room Air 04/10/24 05:46 BMI result Body Mass Index 26.5 <MAIKOL Irwin Last Filed: 04/10/24 06:08> General: AOx3, no acute distress HEENT: no cervical lymphadenopathy, dental abscess L upper tooth Resp: CTA bilaterally CVS: S1, S2, RRR GI: +BS, NT, no distention Skin: Warm, dry Extremities: No LE edema Psych: Appropriate affect <MAIKOL Irwin Last Filed: 04/10/24 06:08> Const: General: No confusion <MAIKOL Irwin Last Filed: 04/10/24 06:08> Orientation/consciousness: No confusion <MAIKOL rIwin Last Filed: 04/10/24 06:08> Neuro: General: No confusion <MAIKOL Irwin Last Filed: 04/10/24 06:08> Results Labs CBC and Chem 7: 04/10/24 00:27 04/10/24 02:21 <Melissa Childs PA-C - Last Filed: 04/10/24 06:08> Labs: Laboratory Results - last 24 hr 04/10/24 04/10/24 00:27 02:21 MCV 86.7 MCH 29.3 MCHC 33.8 RDW 12.3 Plt Count 200 MPV 11.3 Immature Gran % (Auto) 0.3 Neut % (Auto) 57.3 Lymph % (Auto) 34.7 [place] % (Auto) 5.9 Eos % (Auto) 1.2 Baso % (Auto) 0.6 Lymph # (Auto) 3.8 [place] # (Auto) 0.6 Eos # (Auto) 0.1 Baso # (Auto) 0.1 Abs Immat Gran (auto) 0.03 Absolute Neuts (auto) 6.3 Absolute Nucleated RBC 0.000 Nucleated RBC % (auto) 0.0 Anion Gap 14 12 Estim Creat Clear Calc 57.5 56.8 Estimated GFR > 60 > 60 Random Glucose 105 106 Lactic Acid 0.7 Calcium 8.9 9.1 Total Bilirubin 0.3 AST 18 ALT 14 Alkaline Phosphatase 61 Total Protein 7.0 Albumin 4.3 Influenza Type A (PCR) NEGATIVE Influenza Type B (PCR) NEGATIVE RSV RNA Qual (PCR) NEGATIVE SARS-CoV-2 RNA (RT-PCR) NEGATIVE S. pyogenes GrpA PAULY Negative <Melissa Childs PA-C - Last Filed: 04/10/24 06:08> Assessment and Plan (1) Intractable vomiting: Status: Acute <MAIKOL Irwin Last Filed: 04/10/24 06:08> (2) Dental abscess: Status: Acute <MAIKOL Irwin Last Filed: 04/10/24 06:08> Patient is a 53-year-old female with a past medical history significant for gastric bypass, gastroparesis, secondary hyperparathyroidism, factor 7, ADHD and anxiety, who presented to the ED due to left upper dental abscess with associated dizziness, headache, fatigue, burning throat and unable to tolerate p.o. Augmentin. Intractable nausea vomiting ?gastroparesis flare - patient unable to tolerate p.o. - WBC slightly elevated at 10.9, vital signs normal, no sepsis - abdominopelvic CT normal, status post gastric sleeve - Reglan t.i.d. for nausea vomiting and possible gastroparesis flare - consider GI consult if no improvement with Reglan - clear liquid diet and advance to regular diet as tolerated - IV Protonix - monitor CBC and BMP Dental abscess - unable to tolerate p.o., start IV Unasyn ADHD, anxiety - continue home meds Full code VTE prophylaxis: Lovenox Patient with intractable nausea and vomiting with possible gastroparesis flare complicated by a dental abscess and a unable to tolerate p.o. antibiotics, requiring observation for IV antibiotics and advancement to regular diet. <Melissa Childs PA-C - Last Filed: 04/10/24 06:08> Patient is a 53-year-old female with a past medical history significant for gastric bypass, gastroparesis, secondary hyperparathyroidism, factor 7, ADHD and anxiety, who presented to the ED due to left upper dental abscess with associated dizziness, headache, fatigue, burning throat and unable to tolerate p.o. Augmentin. Intractable nausea vomiting ?gastroparesis flare - patient unable to tolerate p.o. - WBC slightly elevated at 10.9, vital signs normal, no sepsis - abdominopelvic CT normal, status post gastric sleeve - Reglan t.i.d. for nausea vomiting and possible gastroparesis flare - consider GI consult if no improvement with Reglan - clear liquid diet and advance to regular diet as tolerated - IV Protonix - monitor CBC and BMP Dental abscess - unable to tolerate p.o., start IV Unasyn. Outpatient dental follow up ADHD, anxiety - continue home meds Full code VTE prophylaxis: Lovenox Patient with intractable nausea and vomiting with possible gastroparesis flare complicated by a dental abscess and a unable to tolerate p.o. antibiotics, requiring observation for IV antibiotics and advancement to regular diet. <Xander Young MD - Last Filed: 04/10/24 06:17> Quality Stroke Does the patient have a stroke diagnosis?: No <Melissa Childs PA-C - Last Filed: 04/10/24 06:08> VTE Prior VTE?: No <Melissa Childs PA-C - Last Filed: 04/10/24 06:08> VTE Risk Level:: Medical - moderate - high <Melissa Childs PA-C - Last Filed: 04/10/24 06:08> VTE Device Contraindication: Treatment Not Indicated <Melissa Childs PA-C - Last Filed: 04/10/24 06:08> VTE Drug Contraindication: N/A - Med Ordered <Melissa Childs PA-C - Last Filed: 04/10/24 06:08>
[2024-04-10] MEDS: Pantoprazole Sodium 40 MG/10 ML VIAL IVPUSH (06:49)
[2024-04-10] MEDS: Metoclopramide HCl 10 MG/2 ML VIAL IVPUSH (06:49)
[2024-04-10] MEDS: Enoxaparin Sodium 40 MG/0.4 ML SYRINGE SUBCUT (06:54)
--- NOTE | 2024-04-10 06:59 | PC.NURSE ---
medicated per mar.
[2024-04-10] MEDS: Ampicillin Sodium/Sulbactam Na 3 GM in 0.9 % Sodium Chloride 100 ML IV ×3 (07:35→20:34)
--- NOTE | 2024-04-10 08:37 | PHA.MEDREC ---
Pharmacy Consult ? Medication Reconciliation Pharmacy has completed the medication reconciliation. Spoke to patient at bedside, she knew her medications. Told me she no longer takes the adderall or esomeprazole and takes a Vitamin D3, B-12, and papaya enzyme suppliment.
--- NOTE | 2024-04-10 08:51 | PC.NURSE ---
Resumed care of pt at 0700. Pt a/ox4, resting quietly in bed. Respirations even and unlabored, no increased wob/sob noted. No c/o pain at this time. Pt medicated per MAR with IV abx. Up oob, ambulated to bathroom with steady gait independently. Pt updated on plan of care. Call anderson within reach, all needs met at this time.
[2024-04-10] MEDS: Acetaminophen 325 MG TABLET 650 MG PO (09:38)
[2024-04-10] MEDS: Butalb/Acetamin/Caff 50/325/40 TABLET 1 TAB PO (13:32)
[2024-04-10] MEDS: ALPRAZolam 0.5 MG TABLET PO ×2 (13:38→20:48)
--- NOTE | 2024-04-10 14:41 | PM.EVENT ---
Event Note Date of Service: 04/10/24 Event Note: seen and examined this morning reporting headache, takes fioricet and immitrex at baseline; requesting tylenol for pain control does not feel ready to advance diet Patient is a 53-year-old female with a past medical history significant for gastric bypass, gastroparesis, secondary hyperparathyroidism, factor 7, ADHD and anxiety, who presented to the ED due to left upper dental abscess with associated dizziness, headache, fatigue, burning throat and unable to tolerate p.o. Augmentin. Intractable nausea vomiting ?gastroparesis flare unable to tolerate p.o. - WBC slightly elevated at 10.9, vital signs normal, no sepsis - abdominopelvic CT normal, status post gastric sleeve - Reglan t.i.d. for nausea vomiting and possible gastroparesis flare - consider GI consult if no improvement with Reglan - clear liquid diet and advance to regular diet as tolerated - IV Protonix - monitor CBC and BMP Dental abscess - unable to tolerate p.o., start IV Unasyn ADHD, anxiety - continue home meds Full code VTE prophylaxis: Lovenox Time Spent With Patient Time: Total time managing care of this patient today ____ minutes.
[2024-04-10] MEDS: traMADoL HCL 50 MG TABLET PO (21:17)
[2024-04-11 04:00] VITALS: BP 98/58; PULSE 69; RESP 18; TEMP 36.8; O2SAT 98
[2024-04-11 05:53] LABS: MANUAL DIFF FLAG NO
[2024-04-11 05:55] LABS: Basophils Absolute Auto 0.1 X10*3/uL (0.0-0.2); Basophils Percent Auto 0.7 % (0-2); Eosinophils Absolute Auto 0.1 X10*3/uL (0.0-0.4); Hematocrit 34.6 % (37.0-47.0); Hemoglobin 11.3 g/dl (12.0-16.0); Imm Gran Abs Auto 0.01 X10*3/uL (0.00-0.03); Imm Gran Pct Auto 0.1 % (0.0-0.4); Lymphocytes Absolute Auto 3.4 X10*3/uL (1.2-4.9); Lymphocytes Percent Auto 48.8 % (20-40); Mean Corpuscular HGB Conc 32.7 g/dl (31.0-35.0); Mean Corpuscular Hemoglobin 28.8 pg (27.0-33.0); Mean Platelet Volume 11.3 fL (9.4-12.3); Monocytes Absolute Auto 0.5 X10*3/uL (0.1-1.2); Monocytes Percent Auto 7.6 % (2-11); Neutrophils Absolute Auto 2.9 x10*3/uL (2.0-8.3); Neutrophils Percent Auto 40.8 % (45-73); Platelet Count 178 X10*3/uL (160-400); Red Blood Count 3.93 X10*6/uL (4.20-5.50); Red Cell Distribution Width 12.3 % (11.0-16.0)
[2024-04-11] MEDS: Enoxaparin Sodium 40 MG/0.4 ML SYRINGE SUBCUT (06:00)
[2024-04-11] MEDS: Ampicillin Sodium/Sulbactam Na 3 GM in 0.9 % Sodium Chloride 100 ML IV (06:01)
[2024-04-11] MEDS: traMADoL HCL 50 MG TABLET PO ×3 (06:05→17:43)
[2024-04-11 06:12] LABS: Anion Gap 10 (12-20); Blood Urea Nitrogen 10 mg/dL (9-16); Calcium 8.4 mg/dL (8.4-10.2); Carbon Dioxide 26 mmol/L (22-29); Chloride 111 mmol/L (96-108); Creatinine Clr Calc Pharmacy 62.7; Estimated Glomerular Filt Rate > 60; Glucose Random 99 mg/dL (60-115); Potassium 3.9 mmol/L (3.3-5.1); Sodium 143 mmol/L (135-145)
[2024-04-11 08:00] VITALS: BP 101/58; PULSE 72; RESP 16; TEMP 36.4; O2SAT 97
[2024-04-11] MEDS: 0.9 % Sodium Chloride Flush 3 ML SYRINGE IVFLUSH ×2 (10:01→16:14)
[2024-04-11] MEDS: Pantoprazole Sodium 40 MG/10 ML VIAL IVPUSH (10:42)
[2024-04-11] MEDS: ALPRAZolam 0.5 MG TABLET PO (10:42)
[2024-04-11] MEDS: ondansetron HCL 4 MG/2 ML VIAL IVPUSH (10:49)
[2024-04-11 12:00] VITALS: BP 117/62; PULSE 74; RESP 18; TEMP 36.8; O2SAT 98
[2024-04-11] MEDS: Clindamycin HCL 150 MG CAPSULE 450 MG PO (12:53)
--- NOTE | 2024-04-11 15:17 | MHC.CM.PN ---
BROWN 04/11/23 Patient is independent with all functional mobility. She works and drives. Her car is in the lot. IV ABX have been changed to PO. She will discharge to home selfcare. She will self transport home.
[2024-04-11 16:03] VITALS: BP 113/58; PULSE 68; RESP 18; TEMP 36.9; O2SAT 94
[2024-04-11] MEDS: SUMAtriptan succinate 50 MG TABLET PO (16:13)
--- NOTE | 2024-04-11 16:25 | P.PNIM_ITS ---
Subjective Subjective Date of Service: 04/11/24 Interval History: seen and examined this morning follow up for N/V planned discharged today but worried about tolerating her antibiotics, reporting nausea, not eating much refused reglan, PO PPI, oxycodone, and toradol; requesting IV PPI, IV dilaudid Review of Systems Review of Systems: Yes all other systems are reviewed and are negative Constitutional Constitutional: Denies fever(s) Physical Exam 2 Vital Signs: Vital Signs: Last Vital Signs Temp 98.5 F 04/11/24 16:03 Pulse 68 04/11/24 16:03 Resp 18 04/11/24 16:03 BP 113/58 L 04/11/24 16:03 Pulse Ox 94 04/11/24 16:03 O2 Del Method Room Air 04/11/24 16:03 BMI result Body Mass Index 26.5 Objective Data Active Medications Acetaminophen (Acetaminophen 325 Mg Tablet) 650 mg PO Q6H PRN PRN Reason: Pain, Mild 1-3,fever,headache Last Admin: 04/10/24 09:38 Dose: 650 mg Documented By: YUE Acetaminophen/Butalbital/Caffeine (Butalb/Acetamin/Caff 50/325/40 Tablet) 1 tab PO Q6H PRN PRN Reason: Migraine Headache Last Admin: 04/10/24 13:32 Dose: 1 tab Documented By: KIMBERLY Albuterol Sulfate (Albuterol Sulfate 90 Mcg 8 Gm Inhaler) 2 puff INHALE Q6H PRN PRN Reason: Shortness Of Breath Alprazolam (Alprazolam 0.5 Mg Tablet) 0.5 mg PO QID PRN PRN Reason: Anxiety Last Admin: 04/11/24 10:42 Dose: 0.5 mg Documented By: MAEVE Calcium Carbonate (Calcium Carbonate 750 Mg Tab.Chew) 750 mg PO Q4H PRN PRN Reason: Heartburn Clindamycin HCl (Clindamycin Hcl 150 Mg Capsule) 450 mg PO Q8H VIVIENNE Last Admin: 04/11/24 12:53 Dose: 450 mg Documented By: MAEVE Cyanocobalamin (Cyanocobalamin (Vitamin B-12) 100 Mcg Tablet) 50 mcg PO DAILY VIVIENNE Last Admin: 04/11/24 10:01 Dose: Not Given Documented By: MAEVE Non-Admin Reason: Patient Refused Enoxaparin Sodium (Enoxaparin Sodium 40 Mg/0.4 Ml Syringe) 40 mg SUBCUT Q24H [facility] Last Admin: 04/11/24 06:00 Dose: 40 mg Documented By: EDUARD Magnesium Hydroxide (Milk Of Magnesia 30 Ml Oral.Susp) 30 ml PO DAILY PRN PRN Reason: Constipation Melatonin (Melatonin 3 Mg Tablet) 6 mg PO BEDTIME PRN PRN Reason: Insomnia Metoclopramide HCl (Metoclopramide Hcl 10 Mg/2 Ml Vial) 10 mg IVPUSH Q6H [facility] Last Admin: 04/11/24 14:46 Dose: Not Given Documented By: MAEVE Non-Admin Reason: refused Omeprazole (Omeprazole 40 Mg Capsule.) 40 mg PO DAILY [facility] Last Admin: 04/11/24 10:16 Dose: Not Given Documented By: MAEVE Non-Admin Reason: Patient Refused Ondansetron HCl (Ondansetron Hcl 4 Mg/2 Ml Vial) 4 mg IVPUSH Q8H PRN PRN Reason: Nausea and Vomiting Last Admin: 04/11/24 10:49 Dose: 4 mg Documented By: MAEVE Sodium Chloride (0.9 % Sodium Chloride Flush 3 Ml Syringe) 3 ml IVFLUSH QSHIFT [facility] Last Admin: 04/11/24 16:14 Dose: 3 ml Documented By: NAYE Sumatriptan Succinate (Sumatriptan Succinate 50 Mg Tablet) 50 mg PO DAILY PRN PRN Reason: Migraine Headache Last Admin: 04/11/24 16:13 Dose: 50 mg Documented By: NAYE Tramadol HCl (Tramadol Hcl 50 Mg Tablet) 50 mg PO Q6H PRN PRN Reason: Pain, Severe (Pain Scale 7-10) Last Admin: 04/11/24 10:42 Dose: 50 mg Documented By: MAEVE Comments: md order to give dose early Vitamin D (Cholecalciferol (Vitamin D3) 25 Mcg Tablet) 50 mcg PO DAILY [facility] Last Admin: 04/11/24 10:01 Dose: Not Given Documented By: MAEVE Non-Admin Reason: Patient Refused Labs 04/11/24 05:41 04/11/24 05:41 Labs: Laboratory Results - last 24 hr 04/11/24 05:41 MCV 88.0 MCH 28.8 MCHC 32.7 RDW 12.3 Plt Count 178 MPV 11.3 Immature Gran % (Auto) 0.1 Neut % (Auto) 40.8 L Lymph % (Auto) 48.8 H Castro % (Auto) 7.6 Eos % (Auto) 2.0 Baso % (Auto) 0.7 Lymph # (Auto) 3.4 Castro # (Auto) 0.5 Eos # (Auto) 0.1 Baso # (Auto) 0.1 Abs Immat Gran (auto) 0.01 Absolute Neuts (auto) 2.9 Absolute Nucleated RBC 0.000 Nucleated RBC % (auto) 0.0 Anion Gap 10 L Estim Creat Clear Calc 62.7 Estimated GFR > 60 Random Glucose 99 Calcium 8.4 D Microbiology Microbiology Results: Microbiology 04/10/24 02:21 Blood Culture - Preliminary Blood - Venous No growth after 24 hours. 04/10/24 02:21 Blood Culture - Preliminary Blood - Venous No growth after 24 hours. Assessment and Plan Plan Patient is a 53-year-old female with a past medical history significant for gastric bypass, gastroparesis, secondary hyperparathyroidism, factor 7, ADHD and anxiety, who presented to the ED due to left upper dental abscess with associated dizziness, headache, fatigue, burning throat and unable to tolerate p.o. Augmentin. Intractable nausea vomiting ?gastroparesis flare able to tolerate more intake, doesn't eat much at baseline per her report; has chronic nausea AP CT ? status post gastric sleeve - Reglan t.i.d. for nausea vomiting and possible gastroparesis flare - consider GI consult if no improvement with Reglan - clear liquid diet and advance to regular diet as tolerated - IV Protonix - monitor CBC and BMP Dental infection unable to tolerate p.o., started on IV Unasyn, she is unwilling to resume augmentin, started on po clindamycin Outpatient dental follow up - appointment scheduled for reportedly ADHD, anxiety - continue home meds Full code VTE prophylaxis: Lovenox Patient with intractable nausea and vomiting with possible gastroparesis flare complicated by a dental abscess and a unable to tolerate p.o. antibiotics, requiring observation for IV antibiotics and advancement to regular diet. Quality Stroke Does the patient have a stroke diagnosis?: No VTE Prior VTE?: No VTE Risk Level:: Medical - moderate - high VTE Device Contraindication: Treatment Not Indicated VTE Drug Contraindication: N/A - Med Ordered
--- NOTE | 2024-04-11 16:46 | P.DS_ITS ---
DS: Providers Provider Date of Service: 04/11/24 Date of admission: 04/10/24 05:55 Date of discharge: 04/11/24 Primary care physician: Unknown Physician Attending physician on discharge: Blayne Martinez Discharging clinician: Croie Thompson DS: Diagnosis Discharge Diagnosis (1) Intractable vomiting: Status: Acute (2) Dental abscess: Status: Acute DS: Summary Hospital Course Hospital Course: From H&P on the day of admission Patient is a 53-year-old female with a past medical history significant for gastric bypass, gastroparesis, secondary hyperpa rathyroidism, factor 7, ADHD and anxiety, who presented to the ED due to left upper dental abscess with associated dizziness, headache, fatigue, burning throat and unable to tolerate p.o. Augmentin. She was prescribed Augmentin by her dentist on Sunday reports she had about 3 doses before having severe nausea and vomiting and unable to proceed with antibiotics. She called her dentist who told her to report to the ED for IV antibiotics. She is also reporting body aches headache fatigue and burning throat. She feels the symptoms are related to her dental infection. The throat burning feels different than her typical reflux. She denies any abdominal pain, fever or chills. She reports taking Augmentin many times in the past without any reaction. The patient is a difficult historian intractable nausea and vomiting. dental infection diagnosed as outpatient. Patient has history of gastroparesis, history of gastric sleeve. She was treated with IV antiemetics, oral antibiotics were transitioned to IV, gradually nausea and vomiting improved back to patient's baseline. She is able to tolerate some p.o.. She prefers not to resume Augmentin on discharge, she will be discharged with oral clindamycin. She has a follow-up appointment with her dentist on . She has been afebrile, leukocytosis resolved, pain controlled with oral Toradol. Time Attestation Discharge Coordination Time (in mins): 36 Quality: Safe Use of Opioids Does Pt have an Active Cancer Diagnosis on the Problem List?: No Quality: Stroke Does the patient have a stroke diagnosis?: No Physical Exam Vital Signs: Vital Signs: Last Vital Signs Temp 98.5 F 04/11/24 16:03 Pulse 68 04/11/24 16:03 Resp 18 04/11/24 16:03 BP 113/58 L 04/11/24 16:03 Pulse Ox 94 04/11/24 16:03 O2 Del Method Room Air 04/11/24 16:03 BMI result Body Mass Index 26.5 Const: General: alert and awake Nutritional Appearance: average body habitus Orientation/consciousness: patient oriented x3 Resp: Effort & Inspection: normal respiratory effort, able to speak in complete sentences, no respiratory distress and no use of accessory muscles Neuro: General: patient oriented x3 Extrem: General: Yes no pedal edema DS: Data Data Completed and Pending Completed studies during hospitalization [Text1]: Procedures Excision of Stomach, Percutaneous Endoscopic Approach, Vertical (05/04/20) Release Peritoneum, Percutaneous Endoscopic Approach (05/04/20) Repair Diaphragm, Percutaneous Endoscopic Approach (05/04/20) Labs on day of discharge: Laboratory Results - last 24 hr 04/11/24 05:41 WBC 7.0 RBC 3.93 L Hgb 11.3 L Hct 34.6 L MCV 88.0 MCH 28.8 MCHC 32.7 RDW 12.3 Plt Count 178 MPV 11.3 Immature Gran % (Auto) 0.1 Neut % (Auto) 40.8 L Lymph % (Auto) 48.8 H [place] % (Auto) 7.6 Eos % (Auto) 2.0 Baso % (Auto) 0.7 Lymph # (Auto) 3.4 [place] # (Auto) 0.5 Eos # (Auto) 0.1 Baso # (Auto) 0.1 Abs Immat Gran (auto) 0.01 Absolute Neuts (auto) 2.9 Absolute Nucleated RBC 0.000 Nucleated RBC % (auto) 0.0 Sodium 143 Potassium 3.9 Chloride 111 H Carbon Dioxide 26 Anion Gap 10 L BUN 10 Creatinine 0.77 Estim Creat Clear Calc 62.7 Estimated GFR > 60 Random Glucose 99 Calcium 8.4 D Preliminary micro results at discharge 04/10/24 02:21 Blood Culture - Preliminary Blood - Venous No growth after 24 hours. 04/10/24 02:21 Blood Culture - Preliminary Blood - Venous No growth after 24 hours. Discharge Plan Discharge Anticipated Discharge Date/Time: 04/11/24 16:52 Patient Disposition: Home, Self-Care Discharge Diagnosis: dental infection intractable nausea and vomiting Referrals: Physician,Unknown J [Primary Care Provider] - 1 Week Discharge Medications: New clindamycin HCl 150 mg Capsule 450 mg PO Q8H 7 Days Qty: 63 0RF tramadol 50 mg Tablet 50 mg PO Q12H PRN (Reason: Pain, Severe (Pain Scale 7-10)) Qty: 10 0RF Continued tizanidine 4 mg tablet 1 tab PO TID PRN (Reason: Pain (Scale Score 4-6)) sumatriptan succinate 50 mg tablet 1 tab PO DAILY PRN (Reason: Migraine Headache) [id number] 50-325-40 mg tablet 1 tab PO Q6H PRN (Reason: Migraine Headache) omeprazole 40 mg capsule,delayed release(DR/EC) 40 mg PO DAILY Qty: 30 0RF carica papaya [Papaya Enzyme] Tablet 1 tab PO TID Rx Instructions: administer with meals Vitamin B-12 50 mcg Tablet 50 mcg PO DAILY cholecalciferol (vitamin D3) [Vitamin D3] 50 mcg (2,000 unit) Tablet 50 mcg PO DAILY ondansetron 4 mg tablet,disintegrating 4 mg PO Q6H PRN (Reason: nausea and vomiting) Qty: 15 0RF alprazolam [Xanax] 0.5 mg tablet 0.5 mg PO QID PRN (Reason: Anxiety) albuterol sulfate [ProAir HFA] 90 mcg/actuation HFA aerosol inhaler 2 puff inhalation Q6H PRN (Reason: Shortness Of Breath) Activity on Discharge: As tolerated Stand Alone Forms: Patient Portal Discharge page Print Language: Yi Care Plan Goals: see below Health Concerns: Intractable nausea and vomiting dental infection (diagnosed by dentist) Plan of Treatment: take clindamycin as prescribed and follow up with dentist may use zofran as needed for nausea may use tramadol as needed for severe pain Assessment: See discharge summary
--- NOTE | 2024-04-11 18:33 | PC.NURSE ---
Pt left without written prescription for tramadol. This RN attempted to contact pt via phone after she was discharged and there was no answer. A voice message was left regarding returning for script or calling back as soon as possible.
== END 2024-04-11 18:02 | disposition home or self-care (01) ==
LOC: HO.ED 04-10 04:06 → HO.EDOVER 04-10 06:10 → HO.S3 04-10 08:04
PROVIDERS: Admitting Provider Student in an Organized Health Care Education/Training Program; Emergency Provider Emergency Medicine; Visit Provider Physician Assistant Medical
DX: R11.10 Vomiting, unspecified (principal); K04.7 Periapical abscess without sinus; R42 Dizziness and giddiness; R07.9 Chest pain, unspecified; J02.9 Acute pharyngitis, unspecified; R05.9 Cough, unspecified; D68.51 Activated protein C resistance; K21.9 Gastro-esophageal reflux disease without esophagitis; N25.81 Secondary hyperparathyroidism of renal origin; F90.9 Attention-deficit hyperactivity disorder, unspecified type; Z79.899 Other long term (current) drug therapy; Z87.820 Personal history of traumatic brain injury; Z03.818 Encounter for observation for suspected exposure to other biological agents ruled out
CPT/HCPCS: 0241U; 36415; 71045; 74176; 80048; 80053; 83605; 85025; 87040; 87651; 93005; 96361; 96365; 96366; 96367; 96372; 96375; 96376; 99221; 99285; J0295; J1171; J1650; J2060; J2270; J2405; J2470; J2543; J2765

== ENCOUNTER → 2024-04-10 00:45 | Outpatient (BNV) | payer OTHER, SELFPAY | PROVIDERS: Admitting Provider Student in an Organized Health Care Education/Training Program; Emergency Provider Emergency Medicine; Visit Provider Internal Medicine Cardiovascular Disease | DX: R42 Dizziness and giddiness (principal); R00.1 Bradycardia, unspecified | CPT/HCPCS: 93010 ==

== ENCOUNTER → 2024-04-10 01:21 | Outpatient (BNV) | payer SELFPAY | PROVIDERS: Emergency Provider Emergency Medicine; Visit Provider Radiology Diagnostic Radiology | DX: K57.30 Diverticulosis of large intestine without perforation or abscess without bleeding (principal); R07.9 Chest pain, unspecified | CPT/HCPCS: 71045; 74176 ==

== ENCOUNTER → 2024-04-10 05:55 | Outpatient (BNV) | payer SELFPAY | PROVIDERS: Admitting Provider Student in an Organized Health Care Education/Training Program; Emergency Provider Emergency Medicine; Visit Provider Physician Assistant | DX: R11.10 Vomiting, unspecified (principal); K04.7 Periapical abscess without sinus | CPT/HCPCS: 99222; 99239; 99499 ==